=== PATIENT | female | born 1965 | race African-American/Black ===

== ENCOUNTER 2019-08-21 18:15 | Inpatient (IN) | payer MEDICARE, OTHER ==
[~2019-08-21] VITALS: Ht 167.6 cm; Wt 72.1 kg
[2019-08-21] MEDS ORDERED: GLIP5TAB13 PO (18:37)
[2019-08-21] MEDS ORDERED: MECL-102 PO (18:37)
[2019-08-21] MEDS ORDERED: INSU100V7 SQ (18:37)
[2019-08-21] MEDS ORDERED: OMEP20TA20 PO (18:37)
[2019-08-21] MEDS ORDERED: INSU100V11 SQ (18:37)
[2019-08-21] MEDS ORDERED: CARV25TA2 PO (18:37)
[2019-08-21] MEDS ORDERED: NIFE30TA89 PO (18:37)
[2019-08-21] MEDS ORDERED: MIDO5TAB4 PO (18:37)
[2019-08-21] MEDS ORDERED: ACET-868 PO (18:37)
[2019-08-21] MEDS ORDERED: CLOP75TA15 PO (18:37)
[2019-08-21] MEDS ORDERED: ASPI-1169 PO (18:37)
[2019-08-21] MEDS ORDERED: GENT3.5O7 TOP (18:41)
--- NOTE | 2019-08-21 18:54 | NUR ---
PER PATIENT, SOMETIMES SHE MAKES URINE, SOMETIMES SHE DOESN'T INFORMED DR. FRANKLIN. PER , ITS OK NOT TO COLLECT URINE AT THIS TIME.
[2019-08-21] MEDS ORDERED: IV NS 0.9% 1,000 ML BAG IV ONE (19:00)
[2019-08-21] MEDS ORDERED: VANCOMYCIN 1 GM in IV D5W 250 ML IV ONE (19:00)
[2019-08-21] MEDS ORDERED: PIPERACILLIN /TAZOBACTAM 3.375 G in IV D5W 50 ML IV ONE (19:00)
--- NOTE | 2019-08-21 19:01 | NUR ---
PAGED EPIC BRYSON GRAHAM.
--- NOTE | 2019-08-21 19:22 | NUR ---
DR FRANKLIN AT THE BED SIDE
[2019-08-21] MEDS ORDERED: IV NS 0.9% 500 ML BAG IV ONE (19:30)
--- NOTE | 2019-08-21 19:30 | NUR ---
ENDORSED TO ALEXSANDRA WASSERMAN FOR KAVITHA.
[2019-08-21 19:41] LABS: BASOPHILS # (AUTO) 0.1 /CMM (0.0-0.2); BASOPHILS % (AUTO) 0.9 % (0.0-2.0); EOSINOPHILS % (AUTO) 1.7 % (0.0-6.0); HEMATOCRIT 40 % (33-45); HEMOGLOBIN 12.8 g/dL (11.5-14.8); LYMPHOCYTES # (AUTO) 1.5 /CMM (0.8-4.8); LYMPHOCYTES % (AUTO) 11.7 % (20.0-44.0); MEAN CORPUSCULAR HGB CONC 32 g/dl (31.0-36.0); MEAN CORPUSCULAR VOLUME 94 fL (82-100); MONOCYTES # (AUTO) 0.8 /CMM (0.1-1.30); MONOCYTES % (AUTO) 6.6 % (2.0-12.0); NEUTROPHILS # (AUTO) 9.9 /CMM (1.8-8.9); NEUTROPHILS % (AUTO) 79.1 % (43.0-81.0); PLATELET COUNT (AUTO) 551 /CMM (150-450); RED BLOOD CELL COUNT(AUTO) 4.25 MIL/uL (4.0-5.2); WHITE BLOOD COUNT (AUTO) 12.5 K/uL (4.3-11.0)
--- NOTE | 2019-08-21 19:52 | NUR ---
JACEK, HOSPITALIST AT THE BED SIDE
[2019-08-21 20:10] LABS: CALCIUM, SERUM 9.5 mg/dL (8.5-10.1); CARBON DIOXIDE 23 mmol/L (21-32); CHLORIDE 100 mmol/L (98-107); GLUCOSE 223 mg/dL (74-106); POTASSIUM 3.3 mmol/L (3.5-5.1); SODIUM SERUM 137 mmol/L (136-145); UREA NITROGEN, BLOOD 52 mg/dL (7-18)
[2019-08-21 20:11] LABS: ALANINE AMINOTRANSFERASE 16 U/L (12-78); ALKALINE PHOSPHATASE 147 U/L (46-116); ASPARTATE AMINOTRANSFERASE 37 U/L (15-37); BILIRUBIN,DIRECT 0.2 mg/dL (0.0-0.2); BILIRUBIN,TOTAL 0.6 mg/dL (0.2-1.0)
[2019-08-21 20:12] LABS: CREATININE 11.7 mg/dL (0.6-1.3)
--- NOTE | 2019-08-21 20:12 | NUR ---
CRITICAL LAB RECEIVED. MD SNOW
[2019-08-21 20:19] LABS: ALBUMIN 1.8 g/dL (3.4-5.0)
--- NOTE | 2019-08-21 20:56 | NUR ---
REPORT GIVEN TO LISSETTE MASSEY KAVITHA
--- NOTE | 2019-08-21 20:56 | NUR ---
RM CHANGED 102
[2019-08-21 21:00] VITALS: BP 148/65
[2019-08-21] MEDS ORDERED: MIDODRINE HCL (5MG) 5 MG TABLET PO PRN (21:00)
[2019-08-21] MEDS ORDERED: MECLIZINE HCL 25 MG TABLET PO PRN (21:00)
[2019-08-21] MEDS ORDERED: Z GUARD REMEDY 2 OZ OINT TP PRN (21:00)
[2019-08-21] MEDS ORDERED: ONDANSETRON HCL/PF 4 MG/2 ML VIAL IVP PRN (21:00)
[2019-08-21] MEDS ORDERED: MAG HYDROX/AL HYDROX/SIMETH 30 ML UDC PO PRN (21:00)
[2019-08-21] MEDS ORDERED: MAGNESIUM HYDROXIDE 30 ML UDC PO PRN (21:00)
--- NOTE | 2019-08-21 21:26 | NUR ---
PT WAS TRANSFERRED TO 102 IN STABLE CONDITION.
--- NOTE | 2019-08-21 21:35 | NUR ---
MS RN NOTE PATIENT RECEIVED FROM ER IN [facility] WITH 2 CHILDREN AT BEDSIDE. PATIENT A/0 X 2-3. PATIENT C/OP PAIN IN LEFT HAND/ ARM. PATIENT SLIGHTLY AGITATED. PATIENT TRANSFERRED TO BED BODY CHECK AND BED BATH GIVEN. WOUNDS NOTED ON SACRUM AND LEFT HAND/FOOT. PATIENT HAS 20 G IN R HAND PATENT AND INTACT NO S/S OF INFECTION OR INFILTRATION. PATIENT DENIES CHEST PAIN/SOB. POC AND GOALS DISCUSSED WITH PATIENT AND FAMILY AT BEDSIDE. CALL LIGHT INSTRUCTIONS GIVEN. SAFETY PRECAUTIONS IN PLACE. BED IN LOWEST LOCKED POSITION. SIDE RAILS UP X 2. RN WILL CONTINUE TO MONITOR FOR CHANGES.
[2019-08-21 21:39] VITALS: BP 140/80
[2019-08-21] MEDS ORDERED: POTASSIUM CHLORIDE 20 MEQ TAB.PRT.SR PO SCH (22:00)
[2019-08-21] MEDS: HYDROMORPHONE INJ 2 MG/ML DISP.SYRIN IV PRN (22:13)
[2019-08-21] MEDS: BLOOD SUGAR DIAGNOSTIC 1 EACH STRIP VI SCH (22:26)
[2019-08-21] MEDS: CARVEDILOL 12.5 MG TABLET PO SCH (22:26)
[2019-08-21] MEDS: *INSULIN REGULAR(HUMULIN R)HUM 100 UNIT/ML VIAL SQ PRN (22:28)
[2019-08-22 04:00] VITALS: BP 133/28
[2019-08-22] MEDS ORDERED: PIPERACILLIN /TAZOBACTAM 2.25 G VIAL IV ONE (05:20)
[2019-08-22] MEDS: PIPERACILLIN /TAZOBACTAM 2.25 G in IV D5W 50 ML IV SCH ×3 (05:29→21:53)
[2019-08-22] MEDS ORDERED: FEE PK DOSING 1 MIN EA MC ONE (06:50)
--- NOTE | 2019-08-22 07:36 | NUR ---
recieved alert and with daughter and family at bedside
[2019-08-22] MEDS: BLOOD SUGAR DIAGNOSTIC 1 EACH STRIP VI SCH ×4 (07:49→22:03)
[2019-08-22 08:00] VITALS: BP 143/54
[2019-08-22] MEDS: PANTOPRAZOLE 40 MG TABLET.DR PO SCH (08:05)
[2019-08-22 08:18] LABS: ALBUMIN 1.6 g/dL (3.4-5.0); BILIRUBIN,TOTAL 0.5 mg/dL (0.2-1.0); CALCIUM, SERUM 8.9 mg/dL (8.5-10.1); MAGNESIUM 2.3 mg/dL (1.8-2.4); PHOSPHORUS 7.4 mg/dL (2.5-4.9); POTASSIUM 3.6 mmol/L (3.5-5.1); TOTAL PROTEIN, SERUM 6.2 g/dL (6.4-8.2)
[2019-08-22 08:21] LABS: BASOPHILS # (AUTO) 0.1 /CMM (0.0-0.2); BASOPHILS % (AUTO) 0.7 % (0.0-2.0); EOSINOPHILS % (AUTO) 3.1 % (0.0-6.0); HEMATOCRIT 36 % (33-45); HEMOGLOBIN 11.8 g/dL (11.5-14.8); LYMPHOCYTES # (AUTO) 1.4 /CMM (0.8-4.8); LYMPHOCYTES % (AUTO) 16.2 % (20.0-44.0); MEAN CORPUSCULAR HGB CONC 33 g/dl (31.0-36.0); MEAN CORPUSCULAR VOLUME 93 fL (82-100); MONOCYTES # (AUTO) 0.6 /CMM (0.1-1.30); MONOCYTES % (AUTO) 7.3 % (2.0-12.0); NEUTROPHILS # (AUTO) 6.4 /CMM (1.8-8.9); NEUTROPHILS % (AUTO) 72.7 % (43.0-81.0); PLATELET COUNT (AUTO) 475 /CMM (150-450); RED BLOOD CELL COUNT(AUTO) 3.84 MIL/uL (4.0-5.2); WHITE BLOOD COUNT (AUTO) 8.8 K/uL (4.3-11.0)
[2019-08-22 08:23] LABS: THYROID STIMULATING HORMONE 5.565 uIU/mL (0.358-3.74)
[2019-08-22] MEDS: NIFEdipine XL (30MG) 30 MG TAB PO SCH ×2 (08:28→16:47)
[2019-08-22] MEDS: CARVEDILOL 12.5 MG TABLET PO SCH ×2 (08:31→21:00)
[2019-08-22] MEDS: CLOPIDOGREL BISULFATE 75 MG TABLET PO SCH (08:31)
[2019-08-22] MEDS: glipiZIDE 5 MG TABLET PO SCH ×2 (08:31→16:46)
[2019-08-22] MEDS: ASPIRIN 81 MG TAB.CHEW PO SCH (08:32)
--- NOTE | 2019-08-22 08:39 | NUR ---
WOUND CARE CONSULT: PT PRESENTS WITH MULTIPLE WOUNDS PRESENT ON ADMISSION INCLUDING UNSTAGEABLE SACRAL ULCER, LEFT HAND DISCOLORATION WITH DRY NECROTIC WOUND, LEFT ELBOW ESCHAR, LEFT FOOT ESCHARS. UNABLE TO PALPATE RADIAL PULSE ON LEFT WRIST. LEFT UPPER EXTREMITY COOL TO TOUCH. DR CORTEZ NOTIFIED OF NEED FOR DPM AND SURGICAL CONSULTS. DR CORTEZ AND DR AMEZQUITA NOTIFIED OF ABSENT LEFT RADIAL PULSE AND COOL EXTREMITY. RECOMMENDATIONS MADE FOR SKIN PROTECTION. DISCUSSED WITH NURSING STAFF. WILL SEE PRN. HARRELL IN AGREEMENT WITH PLAN OF CARE. [facility] Addendum: 08/22/19 at 0842 by ARKEL WASHINGTON WNDNU Amended: Links added.
[2019-08-22] MEDS: LACTOBACILLUS RHAMNOSUS GG 1 EACH CAP.SPRINK PO SCH ×2 (09:48→17:40)
--- NOTE | 2019-08-22 10:54 | NUR ---
director business development in [facility] seen patient and informed that the patirnt only took a few spoons of food and refused the rest, the wound care nurse seen mo patiemt ,and awaiting orders, ,arletteshelley herron in [facility] started the peritoneal dialysis.warren koNeprologist in [facility] mseen patient isformed an=bout the patient former hemodialysis provider to orders hep panel amnd and ppd. will malik rosenthal Addendum: 08/22/19 at 1101 by PATRICK POTTS RN informmthe attending physician about it,complaimnts of pain the the coccyx area and will inform the physician for orders,
--- NOTE | 2019-08-22 11:01 | NUR ---
peritonial dialysis ongoing
[2019-08-22] MEDS: HYDROMORPHONE INJ 2 MG/ML DISP.SYRIN IV PRN (11:31)
[2019-08-22 12:00] VITALS: BP 142/81
[2019-08-22] MEDS ORDERED: SILVER NITRATE APPLICATOR 1 EA BOX TP ONE (13:00)
[2019-08-22] MEDS ORDERED: LIDOCAINE 1%-EPI 1:100,000 20 ML VIAL TP ONE (13:00)
--- NOTE | 2019-08-22 13:20 | NUR ---
WOUND CARE NURSE IN AND ORDERED I AND D OF THE COCCYX PRESSURE ULCER, CONSENT NEEDSN TO BE SIGNED WILL CALL DAUGHTER ABOUT THE PLAN
[2019-08-22] MEDS: NEPRO VAN 237 ML CAN PO SCH ×2 (13:27→17:43)
--- NOTE | 2019-08-22 13:51 | NUR ---
DAUGHTER WILL COME FOR THE SIGNATURE , Addendum: 08/22/19 at 1352 by PATRICK POTTS RN OF THE ORDERED I AND D OF THE SACRUM AND BILATERAL BUTRTOCKS.
[2019-08-22] MEDS ORDERED: TUBERCULIN,PURIF.PROT.DERIV. 5 TU/0.1 ML VIAL ID ONE (14:00)
--- NOTE | 2019-08-22 14:10 | NUR ---
DOPPLER OF THE LEFT ARM IS DONE AND CURRENTLY ON PROCESS, DAUGHTER IN [place] SIGN THE CONSENT FOR THE ORDERED PROCEDURE
--- NOTE | 2019-08-22 14:15 | NUR ---
DAUGHTER IN [place] SIGNED THE CONSENT FOR DEBRIDEMENT IF THE SACRASL AND MBILATERAL BUTTOKS PRESSURE ULCER
[2019-08-22] MEDS: VANCOMYCIN 500 MG in IV D5W 100 ML IV PRN (14:22)
--- NOTE | 2019-08-22 15:13 | NUR ---
i and d completed and vital signs checked and recorded
[2019-08-22] MEDS: DAKINS QUARTER STRENGTH (0.125%) 480 ML BOTTLE TOP SCH (15:30)
[2019-08-22 15:39] VITALS: BP 104/48
--- NOTE | 2019-08-22 15:48 | NUR ---
vital signs checked aND RECORDED. O2 AT 2L APPLIED THE PATIENT SATURATION 88 ON ROOM AIR S/P ID AND OF THE COCCYX AND BILATERAL BUTTOKS
--- NOTE | 2019-08-22 15:58 | NUR ---
PHYSICIAN TECHNICAL CLERK INFORMED ABOUT THE PATIENT BLOOD PRESSURE 96/58,AFTER THE ID OF THE SACRAL AND BILATERAL BUTTOCKS PRESSURE ULCER, WITH NO FURTHER ORDERS,CONTINUE TO MONITOR, PLACED ON O2 AT 2L NASAL CANNULA
[2019-08-22 16:00] VITALS: BP 96/46
--- NOTE | 2019-08-22 16:46 | NUR ---
glipizide on hold as the patient refused diet and even suuplements. bs 113mg/dl
--- NOTE | 2019-08-22 17:43 | NUR ---
refused dagmar and jamal supplements, medications taken
--- NOTE | 2019-08-22 18:08 | NUR ---
tuberculin test done to the right forearm
--- NOTE | 2019-08-22 19:30 | NUR ---
MS RN NOTE: RECEIVED PT ON BED ALERT AND ORIENTED X1. FAMILY MEMBER AT BEDSIDE. NO ACUTE DISTRESS NOTED. DENIES PAIN AND DISCOMFORT AT THIS TIME. ON ROOM AIR, NO SOB NOTED. IV ON RIGHT HAND #20 INTACT AND PATENT, FLUSHING WELL. KEPT CLEAN, DRY AND COMFORTABLE. CALL LIGHT PLACED WITHIN REACH. SIDE RAILS UP X2. BED ALARM ON. BED LOCKED AND IN LOWEST POSITION. WILL CONTINUE TO MONITOR PT
[2019-08-22 20:00] VITALS: BP 93/39
[2019-08-23] MEDS: ACETAMINOPHEN 325 MG TABLET PO PRN (00:24)
[2019-08-23] MEDS: HYDROMORPHONE INJ 2 MG/ML DISP.SYRIN IV PRN ×3 (02:41→15:25)
[2019-08-23 04:00] VITALS: BP 117/50
[2019-08-23] MEDS: PIPERACILLIN /TAZOBACTAM 2.25 G in IV D5W 50 ML IV SCH ×3 (05:24→21:31)
--- NOTE | 2019-08-23 06:45 | NUR ---
MS RN NOTE: NO CHANGES NOTED THROUGHOUT THE SHIFT. NO APPARENT DISTRESS NOTED. NO COMPLAINTS OF PAIN OR DISCOMFORT AT THIS TIME. FAMILY MEMBER AT BEDSIDE. KEPT CLEAN, DRY AND COMFORTABLE. SAFETY AND FALL PRECAUTIONS OBSERVED AND MAINTAINED. WILL ENDORSE TO DAY SHIFT RN FOR CONTINUITY OF CARE
[2019-08-23 07:02] LABS: CALCIUM, SERUM 8.9 mg/dL (8.5-10.1); MAGNESIUM 2.5 mg/dL (1.8-2.4); POTASSIUM 3.7 mmol/L (3.5-5.1)
[2019-08-23 07:03] LABS: CREATININE 13.9 mg/dL (0.6-1.3)
--- NOTE | 2019-08-23 07:05 | NUR ---
RN NOTE: RECEIVED PT ON BED, SLEEPING , RESPONDS TO VERBAL STIMULI , SUPPORTIVE FAMILY AT THE BEDSIDE, ON RA, RESPIRATION EVEN AND UNLABORED, NO SOB NOTED. IV ON RIGHT HAND #20 INTACT AND PATENT, FLUSHING WELL. KEPT CLEAN, DRY AND COMFORTABLE. CALL LIGHT PLACED WITHIN REACH. SIDE RAILS UP X3. BED ALARM ON. BED LOCKED AND IN LOWEST POSITION. WILL CONTINUE TO MONITOR .
[2019-08-23 07:07] LABS: PHOSPHORUS 8.2 mg/dL (2.5-4.9)
[2019-08-23 07:08] LABS: BASOPHILS # (AUTO) 0.1 /CMM (0.0-0.2); EOSINOPHILS % (AUTO) 2.9 % (0.0-6.0); HEMATOCRIT 34 % (33-45); HEMOGLOBIN 11.2 g/dL (11.5-14.8); LYMPHOCYTES # (AUTO) 1.4 /CMM (0.8-4.8); LYMPHOCYTES % (AUTO) 15.5 % (20.0-44.0); MEAN CORPUSCULAR HGB CONC 33 g/dl (31.0-36.0); MEAN CORPUSCULAR VOLUME 92 fL (82-100); MONOCYTES # (AUTO) 0.7 /CMM (0.1-1.30); MONOCYTES % (AUTO) 7.5 % (2.0-12.0); NEUTROPHILS # (AUTO) 6.5 /CMM (1.8-8.9); NEUTROPHILS % (AUTO) 73.1 % (43.0-81.0); PLATELET COUNT (AUTO) 484 /CMM (150-450); RED BLOOD CELL COUNT(AUTO) 3.67 MIL/uL (4.0-5.2); WHITE BLOOD COUNT (AUTO) 8.8 K/uL (4.3-11.0)
--- NOTE | 2019-08-23 07:25 | NUR ---
RN NOTES BG=40 ,PT IS DRAWZY , OPENS EYES TO VERBAL STIMULI, D50 IV ONE AMP GIVEN STAT, DR WEBSTER NOTIFIED , CONTINUE TO MONITOR .
[2019-08-23] MEDS: DEXTROSE 50%-WATER 50 ML DISP.SYRIN IV PRN (07:28)
[2019-08-23 08:00] VITALS: BP 129/50
[2019-08-23] MEDS: NEPRO VAN 237 ML CAN PO SCH ×3 (08:00→17:00)
--- NOTE | 2019-08-23 08:00 | NUR ---
RN NOTES BG =171, PT IS MORE ALERT, FOLLOWS COMMAND, SUPPORTIVE FAMILY AT THE BEDSIDE, CONTINUE TO MONITOR. DR WEBSTER NOTIFED REGARDING BG AND PHOS=8.2, NO NEW ORDER GIVEN , CONTINUE TO MONITOR .
[2019-08-23] MEDS: ASPIRIN 81 MG TAB.CHEW PO SCH (08:25)
[2019-08-23] MEDS: LACTOBACILLUS RHAMNOSUS GG 1 EACH CAP.SPRINK PO SCH ×2 (08:25→17:00)
[2019-08-23] MEDS: CLOPIDOGREL BISULFATE 75 MG TABLET PO SCH (08:25)
[2019-08-23] MEDS: CARVEDILOL 12.5 MG TABLET PO SCH ×2 (08:26→21:00)
[2019-08-23] MEDS: NIFEdipine XL (30MG) 30 MG TAB PO SCH ×2 (08:26→17:00)
[2019-08-23] MEDS: PANTOPRAZOLE 40 MG TABLET.DR PO SCH (08:28)
[2019-08-23] MEDS: BLOOD SUGAR DIAGNOSTIC 1 EACH STRIP VI SCH ×4 (08:28→21:32)
[2019-08-23] MEDS: glipiZIDE 5 MG TABLET PO SCH ×2 (09:00→17:00)
[2019-08-23] MEDS: DAKINS QUARTER STRENGTH (0.125%) 480 ML BOTTLE TOP SCH (09:29)
--- NOTE | 2019-08-23 12:00 | NUR ---
RN NOTES PT IS ALERT AND ORIENTEDx1 , WITH CONFUSION AND HALLUCINATING EPISODES AND NOT RESPONSE TO VERBAL STIMULI AT TIMES BUT RESPONSE TO VERBAL STIMULI SOMETIMES.
[2019-08-23] MEDS: SEVELAMER CARBONATE 0.8 GM POWD.PACK PO SCH ×2 (12:44→18:00)
[2019-08-23] MEDS: INSULIN REGULAR, HUMAN 100 UNIT/ML 3 ML VIAL SQ PRN ×2 (12:52→18:02)
[2019-08-23] MEDS: HYDROGEL DRESSING 90 GM TUBE TP SCH (12:54)
--- NOTE | 2019-08-23 14:15 | NUR ---
RN NOTES PT IS HARD STICK , UNABLE TO START IV G 18 FOR CTA, ORDER RECEIVED FOR MIDLINE.
--- NOTE | 2019-08-23 15:25 | NUR ---
RN NOTES PT SCRAMMING AND CRYING , C/O PAIN ON HER SACRUM ,0.5 MG DILAUDID IV GIVE PER MD ORDER . CONTINUE TO MONITOR .
--- NOTE | 2019-08-23 15:33 | NUR ---
RN NOTES PT IS DROWZY AND DOES NOTE FOLLOW COMMANDS, UNABLE TO SENT FOR CTA. DR YOUNG NOTIFIED. CTA CANCELED FOR NOW PER DR YOUNG.
[2019-08-23 16:00] VITALS: BP 106/71
--- NOTE | 2019-08-23 18:00 | NUR ---
RN NOTES VSS STABLE, PT IS DRAWZY AND DOES NOT FOLLOW COMMAND AT THIS TIME BUT ABLE TO COMMUNICATE, STATED WANTS TO GO HOME , R UPPER ARM MIDLINE SITE CLEAN, DRY AND INTACT, SR UP X3, CALL LIGHT WITHIN EASY REACH, WILL ENDOSE TO LIVESTOCK AUCTIONEER NURSE FOR CONTINUITY OF CARE.
--- NOTE | 2019-08-23 19:25 | NUR ---
MS/RN NOTES PATIENT IN BED, DROWSY, RESPONSIVE TO TACTILE AND VERBAL STIMULI, ALERT AND ORIENTED X1. IN NO ACUTE DISTRESS, RESPIRATION EVEN AND UNLABORED. NO SOB NOTED, NO S/S OF PAIN AT THIS TIME. RIGHT UPPER ARM MIDLINE WITH NO S/S OF INFECTION/ INFILTRATION. FLUSHED WITH NS. PATIENT ON O2 2LPM VIA NC, O2 SAT 98%. AT THIS TIME. SAFETY MAINTAINED, BED AT THE LOWEST LOCKED POSITION. KEPT CLEAN AND DRY CALL LIGHT WITHIN REACH. FAMILY AT BED SIDE. WILL CONTINUE TO MONITOR PER PLAN OF CARE.
[2019-08-23 20:00] VITALS: BP 111/48
--- NOTE | 2019-08-23 21:08 | NUR ---
COREG NOT ADMINISTER, PATIENT BLOOD PRESSURE 102/44, HR 68
--- NOTE | 2019-08-23 21:33 | NUR ---
PATIENT BLOOD SUGAR 161 AT THIS TIME, HOLDING INSULIN SLIDING SCALE ORDERED AT THIS TIME, PATIENT NOT EAT EATING MUCH. CALLED SERVICING MANAGER ABHAY, MADE HIM AWARE, PER ABHAY, CONTINUE TO MONITOR
[2019-08-24 04:00] VITALS: BP 106/63
[2019-08-24] MEDS: PIPERACILLIN /TAZOBACTAM 2.25 G in IV D5W 50 ML IV SCH ×3 (06:08→20:35)
[2019-08-24 07:11] LABS: MAGNESIUM 2.7 mg/dL (1.8-2.4); POTASSIUM 4.1 mmol/L (3.5-5.1)
--- NOTE | 2019-08-24 07:11 | NUR ---
MS/RN NOTES PATIENT REMAINED IN BED, IN NO ACUTE DISTRESS, BREATHING EVEN AND UNLABORED, NO SOB NOTED, NO S/S OF PAIN AT THIS TIME. ALL DUE MEDS GIVEN ORDERED, TREATMENT RENDERED, TOLERATED WELL. KEPT CLEAN AND DRY, ALL NEEDS ATTENDANT, SAFETY MAINTAINED, CALL LIGHT WITHIN REACH. ENDORSE TO AM SHIFT NURSE FOR KAVITHA.
[2019-08-24 07:16] LABS: CREATININE 14.3 mg/dL (0.6-1.3); PHOSPHORUS 8.6 mg/dL (2.5-4.9)
--- NOTE | 2019-08-24 07:25 | NUR ---
MS/RN OPENING NOTES RECEIVED PATIENT IN BED AWAKE, ALERT AND ABLE TO MAKE NEEDS KNOWN. NO PAIN OR ACUTE DISTRESS AT THIS TIME. RESPIRATION EVEN AND UNLABORED. SKIN IS DRY WARM TO TOUCH. RIGHT UPPER ARM MIDLINE INTACT WITH NO S/S OF INFECTION/ INFILTRATION. FLUSHING WELL. ALL NEEDS ANTICIPATED. CALL LIGHT WITHIN REACHED. BED LOCKED AND IN LOWEST POSITION. SAFETY MAINTAINED. PLAN OF CARE DISCUSSED. WILL CONTINUE TO MONITOR CLOSELY.
[2019-08-24] MEDS: PANTOPRAZOLE 40 MG TABLET.DR PO SCH (07:50)
[2019-08-24] MEDS: BLOOD SUGAR DIAGNOSTIC 1 EACH STRIP VI SCH ×4 (07:50→23:19)
[2019-08-24 08:00] VITALS: BP_SYST 108; BP_SYST 113; BP_DIAS 44; BP_DIAS 63
[2019-08-24] MEDS: NEPRO VAN 237 ML CAN PO SCH ×3 (08:05→17:38)
[2019-08-24] MEDS: LACTOBACILLUS RHAMNOSUS GG 1 EACH CAP.SPRINK PO SCH ×2 (08:38→18:05)
[2019-08-24] MEDS: glipiZIDE 5 MG TABLET PO SCH ×2 (08:38→18:06)
[2019-08-24] MEDS: ASPIRIN 81 MG TAB.CHEW PO SCH (08:38)
[2019-08-24] MEDS: CLOPIDOGREL BISULFATE 75 MG TABLET PO SCH (08:39)
[2019-08-24] MEDS: SEVELAMER CARBONATE 0.8 GM POWD.PACK PO SCH ×3 (08:39→18:06)
[2019-08-24] MEDS: NIFEdipine XL (30MG) 30 MG TAB PO SCH ×2 (08:39→18:05)
[2019-08-24] MEDS: CARVEDILOL 12.5 MG TABLET PO SCH ×2 (08:39→20:00)
[2019-08-24] MEDS: HYDROGEL DRESSING 90 GM TUBE TP SCH (08:41)
--- NOTE | 2019-08-24 08:42 | NUR ---
MS/RN NOTES MEDICATION COREG AND NIFEDIPINE WAS NOT GIVEN DUE TO LOW BP OF 108/63. PATIENT CONTINUES TO REMAIN IN STABLE CONDITION. WILL CONTINUE PLAN OF CARE.
--- NOTE | 2019-08-24 11:36 | NUR ---
MS/RN NOTES PATIENT REFUSED BS CHECKING AT 1200. EXPLAINED RISKS AND BENEFITS X3. PATIENT STILL REFUSED X3. PATIENT CONTINUES TO REMAIN IN STABLE CONDITION. WILL CONTINUE TO MONITOR CLOSELY.
--- NOTE | 2019-08-24 15:43 | NUR ---
BROUGHT THE PT. TO CT FOR CT ANGIO HEART AND SHE DOESN'T WANT TO CONTINUE WITH THE PROCEDURE. LISY DAVALOS IS AWARE AND TOLD HIM TO INFORM DR. YOUNG REGARDING THE PT.
[2019-08-24] MEDS: HYDROMORPHONE INJ 2 MG/ML DISP.SYRIN IV PRN (15:57)
[2019-08-24 16:00] VITALS: BP 115/65
[2019-08-24] MEDS: *INSULIN REGULAR(HUMULIN R)HUM 100 UNIT/ML VIAL SQ PRN (18:02)
--- NOTE | 2019-08-24 18:46 | NUR ---
MS/RN CLOSING NOTES PATIENT CONTINUES TO REMAIN IN STABLE CONDITION THROUGHOUT THE SHIFT. PROVIDED COMFORT AND SAFETY. RIGHT UPPER ARM MIDLINE INTACT WITH NO S/S OF INFECTION/ INFILTRATION. FLUSHING WELL. PATIENT ABLE TO TOLERATE MEALS AND MEDS WELL. ALL NEEDS ANTICIPATED. CALL LIGHT WITHIN REACHED. BED LOCKED AND IN LOWEST POSITION. SAFETY MAINTAINED. PLAN OF CARE DISCUSSED. WILL CONTINUE TO MONITOR CLOSELY. ENDORSED TO PM NURSE FOR KAVITHA.
--- NOTE | 2019-08-24 19:30 | NUR ---
MS RN OPENING NOTE RECEIVED PATIENT ASLEEP. PATIENT IN BED WITH NO DISTRESS. PATIENT ON ROOM AIR WITH NO SIGNS OF ANY SOB. PATIENT IS NON AMBULATORY WITH BED ALARM ON. IV ACCESS ON RT HAND #20G S/L AND A SIRIA MIDLINE. ALL SAFETY PRECAUTIONS APPLIED, CALL LIGHT WITHIN REACH, BED ALARM ON, AND BED LOCKED IN LOW POSITION. WILL CONTINUE TO MONITOR.
[2019-08-24 20:00] VITALS: BP 116/63
--- NOTE | 2019-08-24 21:30 | NUR ---
MS RN NOTE PATIENT REFUSED TO TAKE CARVEDILOL MEDICATION ORDERED @ 2100. TRIED TO EXPLAIN THE BENEFITS OF TAKING THE MEDICATION BUT PATIENT REFUSED TO OPEN HER MOUTH. ATTEMPTED TO UNIVERSITY RELATIONS VICE PRESIDENT HER THE MEDICATION AT 2200 BUT PATIENT STILL REFUSED TO OPEN MOUTH.
[2019-08-25 04:00] VITALS: BP 132/93
[2019-08-25] MEDS: PIPERACILLIN /TAZOBACTAM 2.25 G in IV D5W 50 ML IV SCH ×3 (04:19→21:47)
--- NOTE | 2019-08-25 06:58 | NUR ---
MS RN CLOSING NOTE PATIENT IN BED WITH NO SIGNS OF ANY DISTRESS. ALL SAFETY PRECAUTIONS APPLIED ENDORSED PATIENT TO MORNING SHIFT NURSE FOR KAVITHA.
--- NOTE | 2019-08-25 07:19 | NUR ---
MS/RN OPENING NOTES RECEIVED PATIENT IN BED SLEEPING COMFORTABLY. EASILY AROUSABLE. NO PAIN OR ACUTE DISTRESS AT THIS TIME. RESPIRATION EVEN AND UNLABORED. SKIN IS DRY WARM TO TOUCH. PATIENT ABLE TO MAKE NEEDS KNOWN. RIGHT UPPER ARM MIDLINE INTACT WITH NO S/S OF INFECTION/ INFILTRATION. FLUSHING WELL. ALL NEEDS ANTICIPATED. CALL LIGHT WITHIN REACHED. BED LOCKED AND IN LOWEST POSITION. SAFETY MAINTAINED. PLAN OF CARE DISCUSSED. WILL CONTINUE TO MONITOR CLOSELY.
[2019-08-25 07:20] LABS: BASOPHILS # (AUTO) 0.1 /CMM (0.0-0.2); BASOPHILS % (AUTO) 0.5 % (0.0-2.0); EOSINOPHILS % (AUTO) 2.4 % (0.0-6.0); HEMATOCRIT 34 % (33-45); HEMOGLOBIN 11.5 g/dL (11.5-14.8); LYMPHOCYTES # (AUTO) 1.3 /CMM (0.8-4.8); LYMPHOCYTES % (AUTO) 12.3 % (20.0-44.0); MEAN CORPUSCULAR HGB CONC 34 g/dl (31.0-36.0); MEAN CORPUSCULAR VOLUME 92 fL (82-100); MONOCYTES # (AUTO) 0.7 /CMM (0.1-1.30); MONOCYTES % (AUTO) 6.1 % (2.0-12.0); NEUTROPHILS # (AUTO) 8.6 /CMM (1.8-8.9); NEUTROPHILS % (AUTO) 78.7 % (43.0-81.0); PLATELET COUNT (AUTO) 460 /CMM (150-450); RED BLOOD CELL COUNT(AUTO) 3.72 MIL/uL (4.0-5.2)
[2019-08-25 07:36] LABS: CALCIUM, SERUM 9.2 mg/dL (8.5-10.1); MAGNESIUM 2.5 mg/dL (1.8-2.4)
[2019-08-25 07:42] LABS: CREATININE 14.6 mg/dL (0.6-1.3)
[2019-08-25 07:43] LABS: PHOSPHORUS 8.3 mg/dL (2.5-4.9)
[2019-08-25 08:00] VITALS: BP 118/60
[2019-08-25] MEDS: PANTOPRAZOLE 40 MG TABLET.DR PO SCH (08:20)
[2019-08-25] MEDS: BLOOD SUGAR DIAGNOSTIC 1 EACH STRIP VI SCH ×5 (08:23→23:00)
[2019-08-25] MEDS: NEPRO VAN 237 ML CAN PO SCH ×3 (08:23→17:36)
[2019-08-25] MEDS: SEVELAMER CARBONATE 0.8 GM POWD.PACK PO SCH ×3 (08:25→17:35)
[2019-08-25] MEDS: CLOPIDOGREL BISULFATE 75 MG TABLET PO SCH (08:26)
[2019-08-25] MEDS: ASPIRIN 81 MG TAB.CHEW PO SCH (08:26)
[2019-08-25] MEDS: CARVEDILOL 12.5 MG TABLET PO SCH ×2 (08:26→21:50)
[2019-08-25] MEDS: glipiZIDE 5 MG TABLET PO SCH ×2 (08:26→17:35)
[2019-08-25] MEDS: LACTOBACILLUS RHAMNOSUS GG 1 EACH CAP.SPRINK PO SCH ×2 (08:26→17:35)
[2019-08-25] MEDS: NIFEdipine XL (30MG) 30 MG TAB PO SCH ×2 (08:26→17:35)
[2019-08-25] MEDS: HYDROGEL DRESSING 90 GM TUBE TP SCH (08:27)
[2019-08-25] MEDS: *INSULIN REGULAR(HUMULIN R)HUM 100 UNIT/ML VIAL SQ PRN (12:31)
[2019-08-25] MEDS: HYDROMORPHONE INJ 2 MG/ML DISP.SYRIN IV PRN ×2 (13:27→21:54)
--- NOTE | 2019-08-25 15:02 | NUR ---
MS/RN NOTES INFORMED DR. YOUNG REGARDING SISTER OF PATIENT WANTING DOCTOR TO CALL HER. PHONE NUMBER AND NAME WAS GIVEN TO DR. YOUNG. PER DOCTOR HE SAID OK.
[2019-08-25 16:00] VITALS: BP 128/72
[2019-08-25] MEDS: INSULIN REGULAR, HUMAN 100 UNIT/ML 3 ML VIAL SQ PRN (17:17)
--- NOTE | 2019-08-25 18:46 | NUR ---
MS/RN CLOSING NOTES PATIENT CONTINUES TO REMAIN IN STABLE CONDITION THROUGHOUT THE SHIFT. PROVIDED COMFORT AND SAFETY. WHILE PREPARING THE PATIENT FOR DISCHARGE, FAMILY MEMBERS INSISTED FOR HER TO GO TO A SNF. SPOKE TO CM PER HER PATIENT WOULD STAY FOR THE NIGHT HERE IN THE UNIT UNTIL THEY FIND PLACEMENT FOR HER TOMORROW. FAMILY MEMBERS MADE AWARE. IV ACCESS INTACT AND PATENT. FLUSHING WELL. ALL NEEDS ANTICIPATED. CALL LIGHT WITHIN REACHED. BED LOCKED AND IN LOWEST POSITION. ENDORSED TO PM NURSE FOR KAVITHA.
[2019-08-25 20:00] VITALS: BP 129/47
[2019-08-25] MEDS: DEXTROSE 50%-WATER 50 ML DISP.SYRIN IV PRN (22:30)
[2019-08-25] MEDS: ZOLPIDEM TARTRATE 5 MG TABLET PO PRN (23:11)
[2019-08-26] MEDS: *INSULIN REGULAR(HUMULIN R)HUM 100 UNIT/ML VIAL SQ PRN ×2 (00:46→17:37)
[2019-08-26 04:00] VITALS: BP 126/60
[2019-08-26] MEDS: PIPERACILLIN /TAZOBACTAM 2.25 G in IV D5W 50 ML IV SCH ×3 (05:56→20:38)
--- NOTE | 2019-08-26 07:11 | NUR ---
RN NOTES PATIENT IN BED WITH NO RESPIRATORY DISTRESS NOTED. BREATHING EVEN AND UNLABORED. NOTED MOANING, ADMINISTERED DILAUDID FOR PAIN WITH RELIEF. PATIENT'S BLOOD SUGAR WAS LOW AT 2200, PATIENT WAS ASYMPTOMATIC. DEXTROSE ADMINISTERED, RECHECKED AFTER 1 HOUR, WENT UP 197. 0 INSULIN ADMINISTERED BECAUSE OF EPISODE OF HYPOCLYCEMIA. KEPT CLEAN AND DRY. ENDORSED TO NEXT SHIFT FOR CONTINUITY OF CARE.
[2019-08-26 07:18] LABS: CALCIUM, SERUM 9.6 mg/dL (8.5-10.1); POTASSIUM 3.7 mmol/L (3.5-5.1)
[2019-08-26 07:19] LABS: CREATININE 15.2 mg/dL (0.6-1.3)
--- NOTE | 2019-08-26 07:53 | NUR ---
MS RN NOTES PATIENT IN BED WITH NO RESPIRATORY DISTRESS NOTED. BREATHING EVEN AND UNLABORED.KEPT CLEAN AND DRY.ON 2L NS ,NO SOB NOTED AT THIS TIME ALERT WITH CONFUSION , TREASURY MANAGEMENT SALES CONSULTANT AT BEDSIDE FEEDING PATIENT, RT UA MID LINE IN PLACE AND RT HAND HL IN PLACE , BED IN LOWEST AND LOCKED POSITION , CALL LIGHT WITH REACH , PLAN OF CARE DISCUSSED WITH PATIENT
[2019-08-26 08:00] VITALS: BP 131/59
[2019-08-26] MEDS: SEVELAMER CARBONATE 0.8 GM POWD.PACK PO SCH ×3 (08:35→17:32)
[2019-08-26] MEDS: LACTOBACILLUS RHAMNOSUS GG 1 EACH CAP.SPRINK PO SCH ×2 (08:35→16:44)
[2019-08-26] MEDS: PANTOPRAZOLE 40 MG TABLET.DR PO SCH (08:35)
[2019-08-26] MEDS: CLOPIDOGREL BISULFATE 75 MG TABLET PO SCH (08:35)
[2019-08-26] MEDS: CARVEDILOL 12.5 MG TABLET PO SCH ×2 (08:36→20:44)
[2019-08-26] MEDS: ASPIRIN 81 MG TAB.CHEW PO SCH (08:36)
[2019-08-26] MEDS: HYDROGEL DRESSING 90 GM TUBE TP SCH (08:37)
[2019-08-26] MEDS: NIFEdipine XL (30MG) 30 MG TAB PO SCH ×2 (08:37→16:44)
[2019-08-26] MEDS: glipiZIDE 5 MG TABLET PO SCH ×2 (08:37→16:44)
[2019-08-26] MEDS: NEPRO VAN 237 ML CAN PO SCH ×3 (08:38→16:44)
--- NOTE | 2019-08-26 10:48 | NUR ---
MS WASSERMAN NOTE ON PERITONEAL DIALYSIS , ORDERED, KEEP CLEAN DRY , TURN REPOSITION Q HOUR, SON AT BEDSIDE Addendum: 08/26/19 at 1450 by ROLLY LINDSEY RN peritoneal dialysis completed ,not in distress
[2019-08-26] MEDS: HYDROMORPHONE INJ 2 MG/ML DISP.SYRIN IV PRN (11:00)
[2019-08-26] MEDS: VANCOMYCIN 500 MG in IV D5W 100 ML IV PRN (11:40)
[2019-08-26] MEDS: BLOOD SUGAR DIAGNOSTIC 1 EACH STRIP VI SCH ×3 (11:50→21:51)
[2019-08-26] MEDS: INSULIN REGULAR, HUMAN 100 UNIT/ML 3 ML VIAL SQ PRN (11:52)
--- NOTE | 2019-08-26 14:47 | NUR ---
ms durbin note all needs attended turn repositionnq2 hour ,call light within reach Addendum: 08/26/19 at 1838 by ROLLY LINDSEY RN 1500 TYLENOL,FOR GENERAL PAIN GIVEN
[2019-08-26] MEDS: ACETAMINOPHEN 325 MG TABLET PO PRN (14:59)
[2019-08-26 16:00] VITALS: BP 131/70
--- NOTE | 2019-08-26 18:38 | NUR ---
MS RN NOTE SCAR WASSERMAN ID AT BEDSIDE SEEN PATIENT, WILL CONT TO MONITOR CLOSELY
--- NOTE | 2019-08-26 19:30 | NUR ---
MS RN OPENING NOTE RECEIVED PATIENT IN BED. A/O X2. ROOM AIR SAT 92% PLACED ON 2L/MIN O2 SAT 95%. RESPIRATIONS ARE EVEN AND UNLABORED. NO S/S SOB. DENIES PAIN AT THIS TIME. IN NO APPARENT DISTRESS. IV ACCESS IN BLAYNE MIDLINE PATENT AND SALINE LOCKED, R HAND PATENT AND SALINE LOCKED. BED IS LOW AN LOCKED, HOB ELEVATED 30 DEGREES, SIDE RAILS UP X3, BED ALARM ON. CALL LIGHT WITHIN REACH, FAMILY AT THE BEDSIDE. WILL CONTINUE TO MONITOR.
[2019-08-26] MEDS: NYSTATIN (PYXIS) 500,000 UNIT/5 ML ORAL.SUSP PO SCH (19:50)
[2019-08-26 20:00] VITALS: BP 86/50
[2019-08-26 20:40] VITALS: BP 102/48
[2019-08-26] MEDS: HEPARIN SODIUM, PORCINE 5000 UNITS/1 ML VIAL SQ SCH (20:43)
[2019-08-26 21:40] VITALS: BP_SYST 108; BP_SYST 128; BP_DIAS 50; BP_DIAS 58
--- NOTE | 2019-08-26 22:05 | NUR ---
MS RN NOTE ACCU CHECK READ BS 133. PATIENT REFUSED INSULIN. WILL CONTINUE TO MONITOR.
[2019-08-27] MEDS: ZOLPIDEM TARTRATE 5 MG TABLET PO PRN ×2 (01:22→23:01)
--- NOTE | 2019-08-27 01:25 | NUR ---
MS RN NOTE ADMINISTERED PRN AMBIEN 5MG PER PATIENT REQUEST FOR SLEEP. WILL CONTINUE TO MONITOR.
[2019-08-27 04:00] VITALS: BP 109/77
[2019-08-27] MEDS: PIPERACILLIN /TAZOBACTAM 2.25 G in IV D5W 50 ML IV SCH ×3 (04:07→21:43)
[2019-08-27 06:26] LABS: CALCIUM, SERUM 9.2 mg/dL (8.5-10.1); POTASSIUM 3.5 mmol/L (3.5-5.1)
[2019-08-27 06:27] LABS: CREATININE 15.3 mg/dL (0.6-1.3)
--- NOTE | 2019-08-27 07:00 | NUR ---
MS RN CLOSING NOTE PATIENT IN BED. A/O X2. ON OXYGEN 2L/MIN O2 SAT 95%. RESPIRATIONS ARE EVEN AND UNLABORED. NO SOB NOTED. NO C/O PAIN THROUGHOUT SHIFT. DISTRESS NOTED. IV ACCESS MAINTAINED IN BLAYNE MIDLINE PATENT AND SALINE LOCKED, R HAND PATENT AND SALINE LOCKED. BED IS LOW AN DLOCKED, HOB ELEVATED 30 DEGREES, SIDE RAILS UP X3, BED ALARM ON. CALL LIGHT WITHIN REACH, FAMILY AT THE BEDSIDE. WILL CONTINUE TO MONITOR.
--- NOTE | 2019-08-27 07:05 | NUR ---
MS RN OPENING NOTE: RECEIVED PATIENT IN BED, ASLEEP AND EASY TO AROUSE. PREFERS TO REST AT THE MOMENT, ON ROOM AIR, TOLERATING WELL. NO SOB, NOT IN ACUTE DISTRESS. WITH SIRIA MIDLINE AND R HAND IV SITE, SITES PATENT, CLEAN AND DRY. PERITONEAL DIALYSIS SITE DRESSING CLEAN, DRY AND INTACT. BED IN LOCKED, LOW AND SEMI-ANGELES'S POSITION. SIDE RAILS UP, CALL LIGHT IN REACH. WILL CONTINUE TO MONITOR.
[2019-08-27] MEDS: BLOOD SUGAR DIAGNOSTIC 1 EACH STRIP VI SCH ×4 (07:30→21:46)
[2019-08-27] MEDS: PANTOPRAZOLE 40 MG TABLET.DR PO SCH (07:30)
[2019-08-27 08:00] VITALS: BP 152/63
[2019-08-27] MEDS: SEVELAMER CARBONATE 0.8 GM POWD.PACK PO SCH ×3 (08:00→17:48)
[2019-08-27] MEDS: NEPRO VAN 237 ML CAN PO SCH ×3 (08:00→17:00)
--- NOTE | 2019-08-27 08:00 | NUR ---
MS RN NOTE: PATIENT IS ASLEEP, ABLE TO AROUSE. REFUSED BLOOD SUGAR CHECK SHE IS STILL SLEEPY AND PREFERS TO REST AT THE MOMENT. REFUSED BREAKFAST AT THE MOMENT.
[2019-08-27] MEDS: glipiZIDE 5 MG TABLET PO SCH ×2 (09:00→17:48)
[2019-08-27] MEDS: HEPARIN SODIUM, PORCINE 5000 UNITS/1 ML VIAL SQ SCH ×2 (09:00→21:44)
[2019-08-27] MEDS: NIFEdipine XL (30MG) 30 MG TAB PO SCH ×2 (09:00→17:49)
[2019-08-27] MEDS: NYSTATIN (PYXIS) 500,000 UNIT/5 ML ORAL.SUSP PO SCH ×3 (09:00→17:51)
[2019-08-27] MEDS: ASPIRIN 81 MG TAB.CHEW PO SCH (09:00)
[2019-08-27] MEDS: LACTOBACILLUS RHAMNOSUS GG 1 EACH CAP.SPRINK PO SCH ×2 (09:00→17:48)
[2019-08-27] MEDS: CLOPIDOGREL BISULFATE 75 MG TABLET PO SCH (09:00)
[2019-08-27] MEDS: HYDROGEL DRESSING 90 GM TUBE TP SCH (09:00)
[2019-08-27] MEDS: CARVEDILOL 12.5 MG TABLET PO SCH ×2 (09:00→21:46)
--- NOTE | 2019-08-27 09:00 | NUR ---
MS RN NOTE: OFFERED MEDICATION TO PATIENT, REFUSED AT THE MOMENT. STATED SHE WILL TAKE IT LATER.
[2019-08-27] MEDS ORDERED: CT SWABBABLE VALVE TRANS SET 1 EA INFUS.SET MC ONE (11:59)
[2019-08-27] MEDS ORDERED: IOHEXOL-350 100 ML VIAL IV ONE (12:00)
[2019-08-27] MEDS ORDERED: IV NS 0.9% 250 ML IV ONE (12:00)
--- NOTE | 2019-08-27 12:00 | NUR ---
MS RN NOTE: PATIENT IS BEING PICKED UP BY RADIOLOGY STAFF FOR CTCA PROCEDURE, NO REFUSAL NOTED FROM PATIENT.
--- NOTE | 2019-08-27 12:49 | NUR ---
ICU/RN: CTA CTA COMPLETED. PT BP LABILE, CALLED AND INFORMED . PER WE ARE TO COMPLETE SCAN WITH NO MEDICATIONS DESPITE THE HR IN THE 80S. SCAN WAS DONE INSTRUCTED. PT HAS DIFFICULTY STAYING STILL AND FOLLOWING INSTRUCTIONS. END VITALS: 125/69, HR 75, RR 20, O2 99%.
--- NOTE | 2019-08-27 13:04 | NUR ---
MS RN NOTE: PATIENT IS BACK FROM CTCA PROCEDURE IN STABLE CONDITION. STILL NOTED TO BE LETHARGIC AND PREFERS TO SLEEP.
[2019-08-27 16:00] VITALS: BP 149/63
--- NOTE | 2019-08-27 18:43 | NUR ---
MS RN CLOSING NOTE: PATIENT IN BED. AWAKE, ALERT AND ORIENTED X2. STILL SLEEPY. IN STABLE CONDITION. WAS ABLE TO TAKE PO MEDICATIONS, CRUSHED AND MIXED IN PUDDING. CTCA PROCEDURE DONE EARLIER TODAY AND PATIENT WANTS TO KNOW RESULT SO THAT SHE CAN TALK TO THE DOCTOR AND GO HOME. WILL RELAY INFORMATION TO ONCOMING SHIFT. NO SOB, NO DISTRESS. IV SITES PATENT. ON CONT. O2 @ 2LPM, TOLERATING WELL. NO PAIN REPORTED AT THIS TIME. BED IN LOCKED, LOW AND SEMI-ANGELES'S POSITION. CALL LIGHT IN REACH. WILL ENDORSE TO ONCOMING SHIFT FOR CONTINUITY OF CARE.
[2019-08-27 20:00] VITALS: BP 92/51
[2019-08-27] MEDS: *INSULIN REGULAR(HUMULIN R)HUM 100 UNIT/ML VIAL SQ PRN (22:05)
[2019-08-28 04:00] VITALS: BP 125/53
[2019-08-28] MEDS: PIPERACILLIN /TAZOBACTAM 2.25 G in IV D5W 50 ML IV SCH ×3 (05:30→20:33)
[2019-08-28 06:35] LABS: BASOPHILS # (AUTO) 0.1 /CMM (0.0-0.2); BASOPHILS % (AUTO) 0.6 % (0.0-2.0); EOSINOPHILS % (AUTO) 2.4 % (0.0-6.0); HEMATOCRIT 35 % (33-45); HEMOGLOBIN 11.5 g/dL (11.5-14.8); LYMPHOCYTES # (AUTO) 1.4 /CMM (0.8-4.8); LYMPHOCYTES % (AUTO) 9.7 % (20.0-44.0); MEAN CORPUSCULAR HGB CONC 33 g/dl (31.0-36.0); MEAN CORPUSCULAR VOLUME 91 fL (82-100); MONOCYTES # (AUTO) 0.9 /CMM (0.1-1.30); MONOCYTES % (AUTO) 6.1 % (2.0-12.0); NEUTROPHILS # (AUTO) 11.9 /CMM (1.8-8.9); NEUTROPHILS % (AUTO) 81.2 % (43.0-81.0); PLATELET COUNT (AUTO) 479 /CMM (150-450); RED BLOOD CELL COUNT(AUTO) 3.79 MIL/uL (4.0-5.2); WHITE BLOOD COUNT (AUTO) 14.6 K/uL (4.3-11.0)
[2019-08-28 07:11] LABS: POTASSIUM 3.3 mmol/L (3.5-5.1)
[2019-08-28 07:12] LABS: CREATININE 15.3 mg/dL (0.6-1.3)
--- NOTE | 2019-08-28 07:20 | NUR ---
MS/RN OPENING NOTES RECEIVED PATIENT IN BED SLEEPING COMFORTABLY. EASILY AROUSABLE. NO PAIN OR ACUTE DISTRESS AT THIS TIME. RESPIRATION EVEN AND UNLABORED. SKIN IS DRY WARM TO TOUCH. PATIENT NOTED WITH SIRIA MIDLINE AND R HAND IV SITE. INTACT AND PATENT. FLUSHING WELL. PERITONEAL DIALYSIS SITE DRESSING CLEAN, DRY AND INTACT WELL. ALL NEEDS ANTICIPATED. CALL LIGHT WITHIN REACHED. BED LOCKED AND IN LOWEST POSITION. SAFETY MAINTAINED. PLAN OF CARE DISCUSSED. WILL CONTINUE TO MONITOR CLOSELY.
[2019-08-28] MEDS: DEXTROSE 50%-WATER 50 ML DISP.SYRIN IV PRN (07:45)
[2019-08-28 08:00] VITALS: BP 108/68
[2019-08-28] MEDS: BLOOD SUGAR DIAGNOSTIC 1 EACH STRIP VI SCH ×4 (08:03→22:19)
[2019-08-28] MEDS: PANTOPRAZOLE 40 MG TABLET.DR PO SCH (08:03)
[2019-08-28] MEDS: NEPRO VAN 237 ML CAN PO SCH ×3 (08:04→16:36)
[2019-08-28] MEDS: SEVELAMER CARBONATE 0.8 GM POWD.PACK PO SCH ×3 (08:04→17:01)
[2019-08-28] MEDS: NYSTATIN (PYXIS) 500,000 UNIT/5 ML ORAL.SUSP PO SCH ×3 (08:53→16:35)
[2019-08-28] MEDS: ASPIRIN 81 MG TAB.CHEW PO SCH (08:53)
[2019-08-28] MEDS: glipiZIDE 5 MG TABLET PO SCH ×2 (08:53→16:35)
[2019-08-28] MEDS: LACTOBACILLUS RHAMNOSUS GG 1 EACH CAP.SPRINK PO SCH ×2 (08:53→16:36)
[2019-08-28] MEDS: CLOPIDOGREL BISULFATE 75 MG TABLET PO SCH (08:53)
[2019-08-28] MEDS: HYDROGEL DRESSING 90 GM TUBE TP SCH (08:54)
[2019-08-28] MEDS: HEPARIN SODIUM, PORCINE 5000 UNITS/1 ML VIAL SQ SCH ×2 (08:57→20:34)
[2019-08-28] MEDS: HYDROMORPHONE INJ 2 MG/ML DISP.SYRIN IV PRN ×2 (08:58→20:44)
[2019-08-28] MEDS: CARVEDILOL 12.5 MG TABLET PO SCH ×2 (09:00→20:35)
[2019-08-28] MEDS: NIFEdipine XL (30MG) 30 MG TAB PO SCH ×2 (09:00→16:36)
--- NOTE | 2019-08-28 09:20 | NUR ---
MS/RN NOTES MEDICATION COREG AND PROCARDIA WAS NOT GIVEN DUE TO LOW B/P. PATIENT CONTINUES TO REMAIN IN STABLE CONDITION. WILL CONTINUE TO MONITOR CLOSELY.
[2019-08-28] MEDS: INSULIN REGULAR, HUMAN 100 UNIT/ML 3 ML VIAL SQ PRN (12:40)
[2019-08-28] MEDS ORDERED: HYDROCODONE/APAP 5/325MG 1 EACH TABLET PO PRN (15:30)
[2019-08-28 16:00] VITALS: BP 145/86
[2019-08-28] MEDS: HYDROCODONE/APAP 10/325MG 1 EA TABLET PO PRN (16:04)
[2019-08-28] MEDS: GABAPENTIN 100 MG CAPSULE PO SCH (16:36)
--- NOTE | 2019-08-28 19:10 | NUR ---
MS/RN CLOSING NOTES PATIENT CONTINUES TO REMAIN IN STABLE CONDITION THROUGHOUT THE SHIFT. PROVIDED COMFORT AND SAFETY. PATIENT NOTED WITH SIRIA MIDLINE AND R HAND IV SITE. INTACT AND PATENT. FLUSHING WELL. PERITONEAL DIALYSIS SITE DRESSING CLEAN, DRY AND INTACT WELL. ALL NEEDS ANTICIPATED. CALL LIGHT WITHIN REACHED. BED LOCKED AND IN LOWEST POSITION. SAFETY MAINTAINED. WILL CONTINUE TO MONITOR CLOSELY. ENDORSED TO PM NURSE FOR KAVITHA.
[2019-08-28 20:00] VITALS: BP 112/42
--- NOTE | 2019-08-28 20:30 | NUR ---
MS RN OPENING RECEIVED PATIENT IN BED WITH SITTER. PATIENT SHOWS NO SIGNS OF ANY DISTRESS AT MOMENT. HAS 2L OF O2 ON NASAL CANNULA WITH A O2 SAT OF 94%. PATIENT HAS IV ACCESS ON THE SIRIA MIDLINE AND A RIGHT HAND #20 G, PATIENT IS ON BEDREST WITH THE LE WEAKNESS. ALL SAFETY PRECATUIONS HAVE BEEN APPLIED. WILL CONTINUE TO MONITOR FOR KAVITHA.
[2019-08-28] MEDS: *INSULIN REGULAR(HUMULIN R)HUM 100 UNIT/ML VIAL SQ PRN (22:21)
[2019-08-29 04:00] VITALS: BP 121/64
[2019-08-29] MEDS: PIPERACILLIN /TAZOBACTAM 2.25 G in IV D5W 50 ML IV SCH ×2 (04:05→12:33)
[2019-08-29] MEDS: HYDROCODONE/APAP 10/325MG 1 EA TABLET PO PRN ×3 (04:16→21:34)
[2019-08-29] MEDS: HYDROMORPHONE INJ 2 MG/ML DISP.SYRIN IV PRN ×3 (05:36→23:01)
--- NOTE | 2019-08-29 07:10 | NUR ---
MS RN OPENING NOTE: RECEIVED PATIENT IN BED. AWAKE, ALERT AND ORIENTED X2. ON CONT. O2 VIA NC TOLERATING WELL. SATURATION @ 94%. NO SOB, NOT IN DISTRESS. CURRENTLY UNDERGOING PERITONEAL DIALYSIS, SITE IS PATENT AND DRESSING IS CLEAN, DRY AND SECURE. IV SITE ON SIRIA MIDLINE PATENT, DRESSING IS CLEAN, DRY AND SECURE. NO PAIN NOTED OR REPORTED AT THE MOMENT. CALL LIGHT IN REACH, SIDE RAILS UP, BED LOCKED, LOW AND AT SEMI-ANGELES'S POSITION. WILL CONTINUE TO MONITOR.
[2019-08-29 07:20] LABS: CALCIUM, SERUM 8.9 mg/dL (8.5-10.1); POTASSIUM 3.2 mmol/L (3.5-5.1)
[2019-08-29 07:22] LABS: CREATININE 14.3 mg/dL (0.6-1.3)
--- NOTE | 2019-08-29 07:25 | NUR ---
MS RN CLOSING PATIENT IN BED WITH NO SIGN OF ANY DISTRESS. PATIENT HAS ON NC WITH 2L OF O2 AND NO SIGNS OF SOB. ALL SAFETY PRECAUTIONS APPLIED. ENDORSED PATIENT TO MORNING SHIFT NURSE TO [facility].
[2019-08-29 08:00] VITALS: BP 111/78
[2019-08-29] MEDS: SEVELAMER CARBONATE 0.8 GM POWD.PACK PO SCH ×3 (08:08→18:19)
[2019-08-29] MEDS: PANTOPRAZOLE 40 MG TABLET.DR PO SCH (08:08)
[2019-08-29] MEDS: BLOOD SUGAR DIAGNOSTIC 1 EACH STRIP VI SCH ×4 (08:08→21:37)
[2019-08-29] MEDS: NEPRO VAN 237 ML CAN PO SCH ×3 (08:09→18:20)
[2019-08-29] MEDS: INSULIN REGULAR, HUMAN 100 UNIT/ML 3 ML VIAL SQ PRN ×2 (08:10→12:39)
[2019-08-29 09:10] LABS: BASOPHILS # (AUTO) 0.1 /CMM (0.0-0.2); BASOPHILS % (AUTO) 0.7 % (0.0-2.0); EOSINOPHILS % (AUTO) 3.1 % (0.0-6.0); HEMATOCRIT 35 % (33-45); HEMOGLOBIN 11.7 g/dL (11.5-14.8); LYMPHOCYTES # (AUTO) 1.7 /CMM (0.8-4.8); LYMPHOCYTES % (AUTO) 11.6 % (20.0-44.0); MEAN CORPUSCULAR HGB CONC 33 g/dl (31.0-36.0); MEAN CORPUSCULAR VOLUME 92 fL (82-100); MONOCYTES # (AUTO) 0.7 /CMM (0.1-1.30); NEUTROPHILS # (AUTO) 11.6 /CMM (1.8-8.9); NEUTROPHILS % (AUTO) 79.6 % (43.0-81.0); PLATELET COUNT (AUTO) 386 /CMM (150-450); RED BLOOD CELL COUNT(AUTO) 3.84 MIL/uL (4.0-5.2); WHITE BLOOD COUNT (AUTO) 14.6 K/uL (4.3-11.0)
[2019-08-29] MEDS: NYSTATIN (PYXIS) 500,000 UNIT/5 ML ORAL.SUSP PO SCH ×3 (10:10→18:18)
[2019-08-29] MEDS: GABAPENTIN 100 MG CAPSULE PO SCH ×3 (10:11→18:19)
[2019-08-29] MEDS: LACTOBACILLUS RHAMNOSUS GG 1 EACH CAP.SPRINK PO SCH ×2 (10:12→18:19)
[2019-08-29] MEDS: ASPIRIN 81 MG TAB.CHEW PO SCH (10:12)
[2019-08-29] MEDS: glipiZIDE 5 MG TABLET PO SCH ×2 (10:12→18:19)
[2019-08-29] MEDS: CLOPIDOGREL BISULFATE 75 MG TABLET PO SCH (10:13)
[2019-08-29] MEDS: NIFEdipine XL (30MG) 30 MG TAB PO SCH ×2 (10:13→18:19)
[2019-08-29] MEDS: CARVEDILOL 12.5 MG TABLET PO SCH ×2 (10:14→21:34)
[2019-08-29] MEDS: HEPARIN SODIUM, PORCINE 5000 UNITS/1 ML VIAL SQ SCH ×2 (10:15→21:35)
[2019-08-29] MEDS: HYDROGEL DRESSING 90 GM TUBE TP SCH (10:16)
[2019-08-29 16:00] VITALS: BP 101/62
[2019-08-29] MEDS: DEXTROSE 50%-WATER 50 ML DISP.SYRIN IV PRN (18:04)
--- NOTE | 2019-08-29 18:15 | NUR ---
MS WASSERMAN NOTE: PATIENT BLOOD GLUCOSE LEVEL AT 34. DEXTROSE INJ 50% ADMINISTERED, BLOOD SUGAR RECHECKED AT @143. Addendum: 08/29/19 at 1817 by ROSA BUI RN NO CHANGES IN LOC NOTED, PATIENT IS AWAKE AND RESPONSIVE PRIOR TO ADMINISTRATION OF DEXTROSE INJ 50%
--- NOTE | 2019-08-29 19:00 | NUR ---
MS RN CLOSING NOTE: PATIENT IS ASLEEP AND EASILY AROUSABLE. ON CONT. 02 @ 2LPM VIA NC, TOLERATING WELL. MIDLINE IV SITE AT RIGHT ARM PATENT. DRESSING INTACT AND PATENT. PERITONEAL DIALYSIS SITE DRESSING, CLEAN AND DRY. NO REPORTS OF PAIN NOTED. APPEARS RELAXED AND COMFORTABLE. INFORMED INCOMING RN REGARDING BS OF 34 AND ADMINISTRATION OF DEXTROSE INJ AND BS TO 134. SIDE RAILS UP. CALL LIGHT IN REACH, BED IN LOCKED, LOW AND SEMI FOWLERS POSITION.
[2019-08-29 20:00] VITALS: BP 142/64
[2019-08-29] MEDS: ZOLPIDEM TARTRATE 5 MG TABLET PO PRN (22:34)
[2019-08-30 04:00] VITALS: BP 114/56
[2019-08-30] MEDS: HYDROCODONE/APAP 10/325MG 1 EA TABLET PO PRN (06:08)
--- NOTE | 2019-08-30 07:51 | NUR ---
RN OPENING NOTES RECEIVED PATIENT RESTING IN BED COMFORTABLY, SITTER AT BEDSIDE. SHE IS AOX1, VERBAL, AND ON BED REST. SHE DENIES ANY PAIN, DISCOMFORT, OR SOB AT THIS TIME. SHE IS ON 2L OF OXYGEN TOLERATING WELL. AM BLOOD GLUCOSE SHOWED CRITICAL LEVEL OF 29, PT IS ALERT, ORANGE JUICE WAS GIVEN, WILL REASSESS. SHE IS ON A RENAL DIET, TOLERATING WELL. SIRIA MIDLINE H/L IS PATENT AND INTACT. WILL ADDRESS WOUNDS ACCORDING TO WOUND CARE PLAN. SAFETY MEASURES HAVE BEEN IMPLEMENTED, CALL LIGHT IS WITHIN REACH, BED IS IN LOWEST AND LOCKED POSITION, SIDE RIALS UP X2, WILL CONTINUE TO MONITOR FOR ANY CHANGES.
[2019-08-30] MEDS: BLOOD SUGAR DIAGNOSTIC 1 EACH STRIP VI SCH ×4 (07:54→21:42)
[2019-08-30] MEDS: INSULIN REGULAR, HUMAN 100 UNIT/ML 3 ML VIAL SQ PRN ×2 (07:55→12:02)
[2019-08-30 08:00] VITALS: BP 112/67
[2019-08-30] MEDS: PANTOPRAZOLE 40 MG TABLET.DR PO SCH (08:27)
[2019-08-30] MEDS: GABAPENTIN 100 MG CAPSULE PO SCH ×3 (08:28→17:11)
[2019-08-30] MEDS: NYSTATIN (PYXIS) 500,000 UNIT/5 ML ORAL.SUSP PO SCH ×3 (08:31→17:11)
[2019-08-30] MEDS: SEVELAMER CARBONATE 0.8 GM POWD.PACK PO SCH ×3 (08:31→18:51)
[2019-08-30] MEDS: NIFEdipine XL (30MG) 30 MG TAB PO SCH ×2 (08:31→17:00)
[2019-08-30] MEDS: CARVEDILOL 12.5 MG TABLET PO SCH ×2 (08:31→21:38)
[2019-08-30] MEDS: LACTOBACILLUS RHAMNOSUS GG 1 EACH CAP.SPRINK PO SCH ×2 (08:31→17:11)
[2019-08-30] MEDS: glipiZIDE 5 MG TABLET PO SCH ×2 (08:32→17:00)
[2019-08-30] MEDS: HYDROGEL DRESSING 90 GM TUBE TP SCH (08:34)
[2019-08-30] MEDS: CLOPIDOGREL BISULFATE 75 MG TABLET PO SCH (08:34)
[2019-08-30] MEDS: HEPARIN SODIUM, PORCINE 5000 UNITS/1 ML VIAL SQ SCH ×2 (08:34→21:37)
[2019-08-30 08:40] LABS: CALCIUM, SERUM 9.1 mg/dL (8.5-10.1); POTASSIUM 3.3 mmol/L (3.5-5.1)
[2019-08-30] MEDS: NEPRO VAN 237 ML CAN PO SCH ×3 (08:42→17:10)
[2019-08-30] MEDS: ASPIRIN 81 MG TAB.CHEW PO SCH (08:50)
--- NOTE | 2019-08-30 08:52 | NUR ---
RECHECKED BLOOD GLUCOSE, NO 81, PT IS MORE ALERT. WILL CONTINUE TO MONITOR FOR FURTHER CHANGES
[2019-08-30 08:53] LABS: CREATININE 14.7 mg/dL (0.6-1.3)
[2019-08-30] MEDS: HYDROMORPHONE INJ 2 MG/ML DISP.SYRIN IV PRN (10:12)
[2019-08-30] MEDS: DEXTROSE 50%-WATER 50 ML DISP.SYRIN IV PRN ×3 (11:57→21:46)
--- NOTE | 2019-08-30 12:03 | NUR ---
BLOOD GLUCOSE LEVEL AT 1200 IS 34, DEXTROSE INJECTION WAS GIVEN. PT IS AWAKE AND RESTING IN BED, WILL REASSESS BLOOD GLUCOSE.
[2019-08-30 16:00] VITALS: BP 105/55
--- NOTE | 2019-08-30 17:15 | NUR ---
GLIPIZIDE HELD BECAUSE PATIENT HAS BEEN HAVING LOW BLOOD GLUCOSE LEVELS THROUGHOUT THE DAY
--- NOTE | 2019-08-30 19:29 | NUR ---
RN CLOSING NOTES PATIENT IS RESTING COMFORTABLY IN BED AT THIS TIME, SITTER AT BEDSIDE. PT BLOOD GLUCOSE HAS BEEN RUNNING LOW THROUGHOUT THE DAY. NO ACUTE CHANGES OCCURRED THROUGHOUT THE SHIFT, VITAL SIGNS ARE STABLE, PT NEEDS HAVE BEEN MET. SAFETY MEASURES HAVE BEEN IMPLEMENTED, CALL LIGHT IS WITHIN REACH, SIDE RIALS UP X2, BED IS IN LOWEST AND LOCKED POSITION, PT HAS BEEN ENDORSED TO NIGHTSHIFT RN FOR CONTINUITY OF CARE.
--- NOTE | 2019-08-30 19:41 | NUR ---
MS RN NOTES RECEIVED PT ON BED. SLEEPING. A/O X1. SITTER AT BEDSIDE. ENCOURAGED TO IT. ON NASAL CANNULA 2LPM NO RESPIRATORY DISTRESS NOTED. IV ACCESS ON RAC G20 D5NS RUNNING @75CC/HR. HEAD OF BED ELEVATED. SIDE RAILS UP. CALL LIGHT WITHIN REACH. BED ALARM ON. BED IN LOW AND LOCKED POSITION. WILL MONITOR PT CLOSELY.
--- NOTE | 2019-08-30 22:23 | NUR ---
MS RN NOTES BS OF 34MG/DL, GIVEN ORANGE JUICE AND D50 PER PROTOCOL. INFORMED SPLASH LINE OPERATOR DR. PER SPLASH LINE OPERATOR , D51/2NS @75CC/HR. WILL MONITOR PT CLOSELY.
[2019-08-30] MEDS ORDERED: IV D5/0.45 NACL 1,000 ML IV PRN (22:30)
[2019-08-31] MEDS: HYDROMORPHONE INJ 2 MG/ML DISP.SYRIN IV PRN (02:46)
[2019-08-31 04:00] VITALS: BP 106/42
[2019-08-31] MEDS: DEXTROSE 50%-WATER 50 ML DISP.SYRIN IV PRN (06:01)
[2019-08-31] MEDS: IV 10% DEXTROSE 1,000 ML IV PRN ×2 (06:24→16:00)
--- NOTE | 2019-08-31 06:27 | NUR ---
MS RN NOTES BS CHECK OF 18MG/DL REPEAT OF 17MG/DL, GIVEN D50% IVP PER PROTOCOL. CALLED CRAB FISHER. PER CRAB FISHER ACCUCHECK Q4H, TELE STATUS , AND D10% IVF @ 125CC/HR. WILL MONITOR PT CLOSELY ,
[2019-08-31] MEDS: BLOOD SUGAR DIAGNOSTIC 1 EACH STRIP IN SCH ×5 (06:38→20:56)
[2019-08-31 07:08] LABS: CALCIUM, SERUM 8.4 mg/dL (8.5-10.1); POTASSIUM 3.2 mmol/L (3.5-5.1)
--- NOTE | 2019-08-31 07:15 | NUR ---
[facility] SEASONAL OPENING NOTE RECEIVED REPORT FROM [facility] SHIFT NURSE. PT ASLEEP IN BED, AROUSABLE TO NAME AND TOUCH, ALERT AND ORIENTED X 1 TO NAME ONLY, ON 02 VIA NC 2L/MIN, SATURATING WELL, RESPIRATIONS EVEN AND UNLABORED, NO SIGNS OF RESPIRATORY DISTRESS NOTED. IV INFUSING D10 INTO RIGHT UPPER ARM MIDLINE AT 125ML/HR. MIDLINE DRESSING IS CLEAN, DRY, INTACT. BLOOD SUGAR CHECKED 121 MG/DL. SINUS ARRHYTHMIA WITH INVERTED T WAVES ON SALES DEVELOPER. BED IN LOW POSITION, LOCKED, CALL LIGHT WITHIN REACH. INTRODUCED SELF AND DISCUSSED PLAN OF CARE.
--- NOTE | 2019-08-31 07:19 | NUR ---
COST SPECIALIST NOTES ENDORSED TO AM NURSE FOR CONTINUITY OF CARE.
[2019-08-31] MEDS: BLOOD SUGAR DIAGNOSTIC 1 EACH STRIP VI SCH ×2 (07:24→12:30)
[2019-08-31] MEDS: PANTOPRAZOLE 40 MG TABLET.DR PO SCH (07:27)
[2019-08-31 07:36] LABS: CREATININE 15.1 mg/dL (0.6-1.3)
[2019-08-31 08:00] VITALS: BP 100/78
[2019-08-31] MEDS: CLOPIDOGREL BISULFATE 75 MG TABLET PO SCH (08:30)
[2019-08-31] MEDS: LACTOBACILLUS RHAMNOSUS GG 1 EACH CAP.SPRINK PO SCH ×2 (08:30→17:10)
[2019-08-31] MEDS: GABAPENTIN 100 MG CAPSULE PO SCH ×3 (08:30→17:10)
[2019-08-31] MEDS: glipiZIDE 5 MG TABLET PO SCH ×2 (08:30→17:10)
[2019-08-31] MEDS: NYSTATIN (PYXIS) 500,000 UNIT/5 ML ORAL.SUSP PO SCH ×3 (08:31→17:11)
[2019-08-31] MEDS: NIFEdipine XL (30MG) 30 MG TAB PO SCH ×2 (08:31→17:10)
[2019-08-31] MEDS: ASPIRIN 81 MG TAB.CHEW PO SCH (08:31)
[2019-08-31] MEDS: NEPRO VAN 237 ML CAN PO SCH ×3 (08:38→17:22)
[2019-08-31] MEDS: HYDROGEL DRESSING 90 GM TUBE TP SCH (08:38)
[2019-08-31] MEDS: CARVEDILOL 12.5 MG TABLET PO SCH ×2 (08:38→20:40)
[2019-08-31] MEDS: HYDROCODONE/APAP 10/325MG 1 EA TABLET PO PRN ×3 (08:38→20:18)
[2019-08-31] MEDS: HEPARIN SODIUM, PORCINE 5000 UNITS/1 ML VIAL SQ SCH ×2 (08:39→20:41)
[2019-08-31] MEDS: SEVELAMER CARBONATE 0.8 GM POWD.PACK PO SCH ×3 (09:04→17:10)
[2019-08-31 12:00] VITALS: BP 134/55
[2019-08-31 16:00] VITALS: BP 122/64
[2019-08-31] MEDS: INSULIN REGULAR, HUMAN 100 UNIT/ML 3 ML VIAL SQ PRN (17:25)
--- NOTE | 2019-08-31 18:59 | NUR ---
BANK TELLER MACHINE MECHANIC CLOSING NOTE PT ASLEEP IN BED, AROUSABLE TO NAME AND TOUCH, ALERT AND ORIENTED X 1 TO NAME ONLY, ON ROOM AIR, SATURATING WELL, RESPIRATIONS EVEN AND UNLABORED, NO SIGNS OF RESPIRATORY DISTRESS NOTED. IV INFUSING D10 INTO RIGHT UPPER ARM MIDLINE AT 125ML/HR. MIDLINE DRESSING IS CLEAN, DRY, INTACT. SINUS RHYTHM ON GANG PUSHER. BED IN LOW POSITION, LOCKED, CALL LIGHT WITHIN REACH. WILL ENDORSE TO NOC SHIFT NURSE.
--- NOTE | 2019-08-31 19:10 | NUR ---
RN NOTES: RECEIVED ASLEEP ON BED, ON SEMI FOWLERS POSITION, WITH 1;1 SITTER AT BED SIDE, A/OX1,WITH PERIODS OF CONFUSION AND FORGETFULNESS, SLIGHTLY LETHARGIC AND SLEEPY, ABLE TO VERBALIZED NEEDS, NOW TOLERATING RA SPO2-93%, ON BED REST, ON TELE MONITOR SINUS TACHARDIA-109, NO PAIN OR DISCOMFORT,SIRIA MIDLINE INTACT IVF OF D10% ONGOING AT 125 ML/HR VIA INFUSION PUMP, INCONTINENT, NO SIGN OF RESPIRATORY DISTRESS UPON RECEIVING FROM PREVIOUS SHIFT. TURNING AND REPOSITION Q 2H. KEPT ON CLOSE WATCH.
--- NOTE | 2019-08-31 20:19 | NUR ---
RN NOTES: PATIENT COMPLAINED OF PAIN 10/10 ON THE ENTIRE BODY, REQUEST FOR PAIN MEDICATION BP170/66, SPO2 97%, NORCO GIVEN, NON PHARMACOLOGIC INTERVENTION RENDERED. WARM BLANKET, BACK RUB AND DIM LIT.
[2019-08-31] MEDS: *INSULIN REGULAR(HUMULIN R)HUM 100 UNIT/ML VIAL SQ PRN (20:59)
--- NOTE | 2019-08-31 21:02 | NUR ---
RN NOTES: BLOOD SUGAR CHECKED- 144, INSULIN GIVEN PER SCALE, IVF OF D10% CONTINUE, OTHER DUE ORAL MEDICATION GIVEN, TOLERATED.
[2019-08-31 22:00] VITALS: BP 160/60
[2019-09-01] MEDS: IV 10% DEXTROSE 1,000 ML IV PRN ×3 (00:14→21:38)
--- NOTE | 2019-09-01 00:17 | NUR ---
RN NOTES: HAD BM, CLEAN AND CHANGE, DRESSING DONE ON THE LEFT HAND AND SACROCOCCYX AREA, PROCEDURE TOLERATED, AGREE TO CHECK V/S, LOOKS DROWSY AND VERY SLEEPY, SHE WANNA GO BACK TO SLEEP,CALL LIGHT WITHIN EASY REACH. -IVF FINISHED , NEW BAG OF D10% STARTED AT 125 ML/HR AT 0014.
[2019-09-01] MEDS: BLOOD SUGAR DIAGNOSTIC 1 EACH STRIP IN SCH ×6 (01:13→20:45)
--- NOTE | 2019-09-01 01:13 | NUR ---
RN NOTES: BLOOD SUGAR LFKPI=573, NO INSULIN PER SCALE, KEPT MONITORED FOR AIGN OF HYPER/HYPOGLYCEMIA.
[2019-09-01] MEDS: HYDROCODONE/APAP 10/325MG 1 EA TABLET PO PRN (01:35)
--- NOTE | 2019-09-01 01:36 | NUR ---
RN NOTES: AWAKE , REPOSITIONED, COMPLAINED OF SEVERE PAIN, REQUEST FOR HER PAIN MEDICATION, BP-130/90, NON PHARMACOLOGIC INTERVENTION RENDERED, BACK RUB, DIM LIT AND WARM BLANKET PROVIDED.
[2019-09-01 02:00] VITALS: BP 135/95
--- NOTE | 2019-09-01 04:00 | NUR ---
RN NOTES: ABLE TO SLEEP AND REST, NO SOB, NO PAIN OF DISCOMFORT AT THIS TIME, KEPT ON CLOSE WATCH.
--- NOTE | 2019-09-01 04:56 | NUR ---
RN NOTES: BLOOD SUGAR CHECK-133, WILL CONTINUE TO MONITOR FOR KAVITHA.
[2019-09-01 06:00] VITALS: BP 130/44
--- NOTE | 2019-09-01 06:32 | NUR ---
RN NOTES: ASLEEP IN BED, PUFFY FACE AND EYES, LATEST WEIGHT-150, KEPT ON CLOSE WATCH, CALL LIGHT WITHIN EASY REACH.FALL,SAFETY AND ASPIRATION PRECAUTION OBSERVED, BED LOW AND LOCKED.LAB TEST DONE. ENDORSED FOR CONTINUITY OF CARE.
--- NOTE | 2019-09-01 07:00 | NUR ---
TUBE SKIVER OPENING NOTES PATIENT IS ASLEEP IN BED BUT IS EASILY ARSOUNDS WITH NAME AND TOUCH, PATIENT IS ORIENTED X1 . PATIENT IS CURRENTLY ON ROOM AIR SATURATING WELL , PATIENT SHOWS NO SIGNS OF DISTRESS. PATIENT IS CURRENTLY INFLUSING D10 RIGHT UPPER ARM MID LINE AT 125 / HR . MID LINE DRESSING IS CLEAN, DRY, INTACT. PATIENTS SHOWS SR ON MONITOR IN THE 70'S. SAFETY PRECAUTION PER HOSPITAL POLICY. PATIENT BED IN LOWEST POSITION , BED LOCK, CALL LIGHT WITH IN REACH. WILL CONTINUE TREATMENT PLAN ORDERED.
[2019-09-01 07:08] LABS: CALCIUM, SERUM 8.6 mg/dL (8.5-10.1); POTASSIUM 3.3 mmol/L (3.5-5.1)
[2019-09-01 07:22] LABS: CREATININE 14.4 mg/dL (0.6-1.3)
[2019-09-01] MEDS: GABAPENTIN 100 MG CAPSULE PO SCH ×4 (09:55→17:51)
[2019-09-01] MEDS: CLOPIDOGREL BISULFATE 75 MG TABLET PO SCH (09:56)
[2019-09-01] MEDS: ASPIRIN 81 MG TAB.CHEW PO SCH (09:56)
[2019-09-01] MEDS: HEPARIN SODIUM, PORCINE 5000 UNITS/1 ML VIAL SQ SCH ×2 (09:56→20:50)
[2019-09-01] MEDS: NYSTATIN (PYXIS) 500,000 UNIT/5 ML ORAL.SUSP PO SCH ×5 (09:56→17:52)
[2019-09-01] MEDS: PANTOPRAZOLE 40 MG TABLET.DR PO SCH (09:57)
[2019-09-01 10:00] VITALS: BP 116/38
[2019-09-01] MEDS: SEVELAMER CARBONATE 0.8 GM POWD.PACK PO SCH ×4 (10:07→18:00)
[2019-09-01] MEDS: NIFEdipine XL (30MG) 30 MG TAB PO SCH ×2 (10:07→17:00)
[2019-09-01] MEDS: LACTOBACILLUS RHAMNOSUS GG 1 EACH CAP.SPRINK PO SCH ×3 (10:08→17:51)
[2019-09-01] MEDS: CARVEDILOL 12.5 MG TABLET PO SCH ×2 (10:08→20:47)
[2019-09-01] MEDS: glipiZIDE 5 MG TABLET PO SCH ×3 (10:08→17:51)
[2019-09-01] MEDS: NEPRO VAN 237 ML CAN PO SCH ×3 (10:12→17:53)
[2019-09-01] MEDS: HYDROGEL DRESSING 90 GM TUBE TP SCH (10:13)
--- NOTE | 2019-09-01 10:30 | NUR ---
VERTICA ARCHITECT NOTES PATIENT CURRENTLY RECEIVING PD BY DIALYSIS NURSE.
[2019-09-01] MEDS: HYDROMORPHONE INJ 2 MG/ML DISP.SYRIN IV PRN (12:00)
[2019-09-01 14:00] VITALS: BP 116/38
[2019-09-01 18:00] VITALS: BP 112/21
--- NOTE | 2019-09-01 19:00 | NUR ---
AERODYNAMICS TEACHER OPENING NOTES PATIENT IS ASLEEP BUT IS EASILY AROUSED. WITH NAME AND TOUCH PATIENT IS A/O X3 PATIENT IS CURRENTLY ON OXYGEN TREATMENT AND STURATING WELL PATIENT SHOWS NO SIGNS OF DISTRESS. PATIENT HAD PD TODAY BY DIALYSIS NURSE. PATIENT DURING MEDICATION MANAGEMENT WAS NON COMPLIENT REFUSED MEDICATIONS AND ACCUCHECK. PATIENT FAMILY WAS INFORMED ABOUT TREATMENT PLANS AND CARE PLANS REGARDING HER CARE PATIENT IS CURRENTLY IN MONITORED IN THE 70'S SAFETY MAINTAIN, CALL LIGHT WITH IN REACH, BED AT LOWEST POSITION
--- NOTE | 2019-09-01 19:30 | NUR ---
RN Opening Notes Received patient from LISY Hastings at 1925. Patient currently asleep in bed, easily arousable. A/O x1, with periods of confusion and forgetfulness. Patient able to verbalize needs. Patient on room air tolerating well. Tele monitor currently sinus rhythm 90 according to cardiac monitor technician. 1:1 sitter at bed side. No complaints of pain at this time. No facial grimacing indicating pain or discomfort at this time. SIRIA midline intact with IVF currently running D10% at 125 ml/hr. Will turn and reposition every 2 hours. Safety precautions implemented; call light within reach, bed lowest position, bed locked, side rails up x2. Will closely monitor patient.
--- NOTE | 2019-09-01 20:05 | NUR ---
RN Notes Patient agreed to check vital signs. With constant explaining from myself and ADRIANNA Reyes/Nora.
--- NOTE | 2019-09-01 20:50 | NUR ---
RN Notes Patient had to be convinced to have blood sugar checked and to have medications given with a good 10 minutes of explaining. Patient eventually agreed. Insulin 8 units for blood sugar 325, oral, and all other medication given.
[2019-09-01] MEDS: *INSULIN REGULAR(HUMULIN R)HUM 100 UNIT/ML VIAL SQ PRN (20:51)
[2019-09-01 22:00] VITALS: BP 114/68
--- NOTE | 2019-09-01 22:32 | NUR ---
RN Notes Vital signs stable. Will let Dr. Vazquez know.
--- NOTE | 2019-09-01 22:33 | NUR ---
RN notes 2233 Patient vomited coffee-like color at 2220. Explained to Dr. Vazquez labs have not been drawn since 08/29/19 due to patient always refusing am labs. Most labs stable for 08/29/19. Dr. Vazquez aware. Dr. Vazquez Ordered: D/C heparin and start protonix 40 mg IV bid. Check STAT CBC.
[2019-09-01 22:59] LABS: BASOPHILS # (AUTO) 0.1 /CMM (0.0-0.2); BASOPHILS % (AUTO) 0.9 % (0.0-2.0); EOSINOPHILS % (AUTO) 2.5 % (0.0-6.0); HEMATOCRIT 31 % (33-45); HEMOGLOBIN 10.3 g/dL (11.5-14.8); LYMPHOCYTES # (AUTO) 1.2 /CMM (0.8-4.8); LYMPHOCYTES % (AUTO) 9.2 % (20.0-44.0); MEAN CORPUSCULAR HGB CONC 34 g/dl (31.0-36.0); MEAN CORPUSCULAR VOLUME 90 fL (82-100); MONOCYTES # (AUTO) 0.7 /CMM (0.1-1.30); MONOCYTES % (AUTO) 5.3 % (2.0-12.0); NEUTROPHILS # (AUTO) 10.5 /CMM (1.8-8.9); NEUTROPHILS % (AUTO) 82.1 % (43.0-81.0); PLATELET COUNT (AUTO) 313 /CMM (150-450); RED BLOOD CELL COUNT(AUTO) 3.41 MIL/uL (4.0-5.2); WHITE BLOOD COUNT (AUTO) 12.8 K/uL (4.3-11.0)
[2019-09-02] MEDS: BLOOD SUGAR DIAGNOSTIC 1 EACH STRIP IN SCH ×6 (01:00→21:56)
--- NOTE | 2019-09-02 01:02 | NUR ---
RN Notes Patient refused 0100 blood sugar check. Patient consistently pulls arm away forcefully, flexes arms and states "Why do you have to keep taking my blood??!! You have taken enough!" I educated patient about blood sugar checks to monitor for hypo/hyperglycemia and patient insists on refusing.
[2019-09-02 02:00] VITALS: BP 104/63
--- NOTE | 2019-09-02 05:59 | NUR ---
RN Notes Patient refused 0500 blood sugar check. Patient is easily awakened to my voice. When asked if I can take a sample of blood she pulls her hand/arm forcefully. I explained to patient that we need to monitor her blood sugar for low/high blood levels. Patient insists on refusing. Patient has her arm withdrawn from me.
[2019-09-02 06:00] VITALS: BP 144/64
--- NOTE | 2019-09-02 06:25 | NUR ---
RN Closing Notes Patient is currently asleep, easily arousable to voice. Patient A/O x 1, with periods of confusion and forgetfulness. Patient on room air tolerating well. No signs of respiratory distress. No shortness of breath noted. IV site remains intact with IVF running, no infection/infiltration. Patient was non compliant with the last two accucheks due at 0100 and 0500. Patient currently SR 80'S on tele monitor. Safety precautions implemented; call light within reach, bed locked, bed lowest position. Will continue to monitor and then will endorse to dayssdft nurse for continuity of care.
--- NOTE | 2019-09-02 07:21 | NUR ---
RN OPENING NOTES RECEIVED PATIENT RESTING IN BED COMFORTABLY. SHE IS AOX1, VERBAL, DROWSY, AND ON BED REST. SHE IS ON 2L OF OXYGEN VIA NC, TOLERATING WELL, NO S/SX OF RESP DISTRESS OR SOB. CHEST RISES AND FALLS EVENLY. TELE MONITOR SHOWING SR. PT HAS MULTIPLE WOUNDS THROUGHOUT THE BODY, WILL ADDRESS PER WOUND TREATMENT PLAN. PER NIGHTSHIFT RN, PT IS REFUSING ACCU CHECKS AND VITAL SIGNS. SIRIA MIDLINE IS INTACT, SAFETY MEASURES HAVE BEEN IMPLEMENTED, CALL LIGHT IS WITHIN REACH, BED IS IN LOWEST AND LOCKED POSITION, SIDE RAILS UP X2, WILL CONTINUE TO MONITOR FOR ANY CHANGES
[2019-09-02] MEDS: PANTOPRAZOLE 40 MG TABLET.DR PO SCH (07:30)
[2019-09-02 08:00] VITALS: BP 137/78
[2019-09-02] MEDS: SEVELAMER CARBONATE 0.8 GM POWD.PACK PO SCH ×3 (08:01→18:00)
[2019-09-02] MEDS: NEPRO VAN 237 ML CAN PO SCH ×3 (08:09→17:00)
[2019-09-02] MEDS: ASPIRIN 81 MG TAB.CHEW PO SCH (09:00)
[2019-09-02] MEDS: GABAPENTIN 100 MG CAPSULE PO SCH ×3 (09:00→17:00)
[2019-09-02] MEDS: NYSTATIN (PYXIS) 500,000 UNIT/5 ML ORAL.SUSP PO SCH ×3 (09:00→17:00)
[2019-09-02] MEDS: CARVEDILOL 12.5 MG TABLET PO SCH ×2 (09:00→21:00)
[2019-09-02] MEDS: LACTOBACILLUS RHAMNOSUS GG 1 EACH CAP.SPRINK PO SCH ×2 (09:00→17:00)
[2019-09-02] MEDS: HEPARIN SODIUM, PORCINE 5000 UNITS/1 ML VIAL SQ SCH ×2 (09:00→21:00)
[2019-09-02] MEDS: NIFEdipine XL (30MG) 30 MG TAB PO SCH ×2 (09:00→17:00)
[2019-09-02] MEDS: CLOPIDOGREL BISULFATE 75 MG TABLET PO SCH (09:00)
[2019-09-02] MEDS: glipiZIDE 5 MG TABLET PO SCH ×2 (09:00→17:00)
[2019-09-02] MEDS: HYDROGEL DRESSING 90 GM TUBE TP SCH (09:45)
[2019-09-02 09:51] LABS: CALCIUM, SERUM 8.3 mg/dL (8.5-10.1); POTASSIUM 3.2 mmol/L (3.5-5.1)
[2019-09-02 10:09] LABS: CREATININE 13.5 mg/dL (0.6-1.3)
--- NOTE | 2019-09-02 10:11 | NUR ---
RN NOTES PT MORNING BLOOD GLUCOSE LEVEL WAS 29, PT WAS VERY LETHARGIC AND HARD TO AROUSE. IV DEXTROSE WAS ADMINISTERED. PT IS NOW MORE ALERT, WILL CONTINUE TO MONITOR. GLIPIZIDE WAS HELD. PER DR. FARMER, HEPARIN WAS HELD FOR POSSIBLE GI BLEED, PREVIOUS SHIFT FOUND COFFEE GROUND EMESIS AND H&H HAS SLIGHTLY DROPPED, WILL CONTINUE TO MONITOR
[2019-09-02 12:00] VITALS: BP 127/84
--- NOTE | 2019-09-02 13:45 | NUR ---
RN NOTES PATIENT IS CURRENTLY MORE ALERT, HOWEVER, SHE IS REFUSING EVERYTHING. UNABLE TO ADMIN MEDICATIONS TODAY. PT REFUSED 1300 ACCU CHECK, CURRENTLY HAS D10 RUNNING. PATIENT ALSO REFUSED DRESSING CHANGE ON SACRUM. WILL CONTINUE TO MONITOR FOR ANY CHANGES.
--- NOTE | 2019-09-02 14:42 | NUR ---
RN NOTES SOPHY THACKER DNP, MADE AWARE OF PATIENT'S REFUSAL OF TREATMENT. WILL CONTINUE TO MONITOR
[2019-09-02] MEDS: DEXTROSE 50%-WATER 50 ML DISP.SYRIN IV PRN ×2 (15:15→17:02)
--- NOTE | 2019-09-02 15:23 | NUR ---
PATIENT ALLOWED ME TO CHECK HER BLOOD GLUCOSE, LEVEL OF 34. IV DEXTROSE INJECTION, WILL CONTINUE TO MONITOR
[2019-09-02 16:00] VITALS: BP 127/54
--- NOTE | 2019-09-02 17:36 | NUR ---
PT REFUSED EVENING MEDICATIONS AND RECHECK OF BLOOD SUGAR AFTER DEXTROSE INJECTION. WAS ABLE TO CHECK BLOOD SUGAR AT 17:30, 193. NO INSULIN GIVEN BECAUSE PATIENT IS NOT EATING ANY FOOD, PAUSED D10 INFUSING AND WILL REASSESS.
--- NOTE | 2019-09-02 18:49 | NUR ---
RN CLOSING NOTES PATIENT IS RESTING COMFORTABLY IN BED WITH MOTOR ANALYST AT BEDSIDE. THROUGHOUT THE WHOLE DAY, PATIENT REFUSED ALMOST ALL CARE. PATIENT REFUSED ALL MEDICATIONS, MULTIPLE ACCU CHECKS, AND WOUND CARE. PT BLOOD GLUCOSE HAS BEEN FLUCTUATING THROUGHOUT THE DAY FROM THE 30'S TO 180'S, DEXTROSE IV WAS GIVEN WHEN LOW, UNABLE TO GIVE INSULIN WHEN HIGH BECAUSE PATIENT HAD NO APPETITE AND ATE NOTHING. WITH THE HELP OF THE SITTER, WE WERE ABLE TO ASSESS HER BLOOD GLUCOSE AT CERTAIN TIMES. SOPHY THACKER DNP, WAS NOTIFIED OF PT'S CONSTANT REFUSAL OF CARE. NO ACUTE CHANGES OCCURRED THROUGHOUT THE SHIFT, VITAL SIGNS ARE STABLE. SAFETY MEASURES HAVE BEEN IMPLEMENTED, CALL LIGHT IS WITHIN REACH, BED IS IN LOWEST AND LOCKED POSITION, SIDE RAILS UP X2, WILL ENDORSE TO NIGHTSHIFT RN FOR CONTINUITY OF CARE.
[2019-09-02 20:00] VITALS: BP 127/54
--- NOTE | 2019-09-02 20:00 | NUR ---
TELE/RN OPENING NOTES RECEIVED PATIENT IN BED, ISOLATIVE, REFUSE CARE, DISCUSSED IMPORTANCE OF VITAL SIGNS MONITOIRNG ASWELL BLOOD SUGAR MONITORING, STAYS IN BED, UNMOTIVATED LEARNER, REFUSE TO EAT DINNER, IVFLUIDS RUNNING WITH DEXTROSE.PREFER TO KEEPT TO HERSELF.MONITORING FOR ANY CHANGES. BED LOCKED,
[2019-09-02] MEDS: IV 10% DEXTROSE 1,000 ML IV PRN (21:09)
--- NOTE | 2019-09-02 23:54 | NUR ---
tele/rn notes PATIENTALLOWED TO HAVE BLOOD SUGAR CHECK BUT REFUSED TO HAVE TELE MONITOR , BLOOD PRESSURE CHECK AND REDUSE TO HAVE DINNER. ON IV WITH D5. WILL MONITOR.NON COMPLIANCE BEHAVIOR.
--- NOTE | 2019-09-03 00:20 | NUR ---
TELE/RN NOTES PATIENT EXHIBITED OBSERVE TRYING TO GGET OUT OF BED, LAYING FLAT ON BED, AND UNABLE TO RELAX, OXYGEN 3 LITER AND NSINUS RHTYM. REQUIRE TO BE CHANGE, HAD BM AND HAVING SHALOW BREATHING, AND PULSE OXIMETER READING AT 77%, REQUIRE NON BREATHING TREATMENT AND MD AWARE AT 15 LITER PATIENT OXYGENATION IMPROVED,MD ORDER FOR STAT ABG AND CHEST XRAY.TO CARRY OUT ORDERS.
[2019-09-03 01:07] LABS: ABG BASE EXCESS -0.3 mmol/L; ABG OXYGEN SATURATION 98.7 % (92.0-98.5); ABG PCO2 29.1 mmHg (35.0-45.0); ABG PH 7.499 (7.350-7.450); AaDO2 505.9 mmHg; COHb 0.4 % (0.5-1.5); MetHb 0.3 % (0.0-1.5); SITE, ABG Right Brachial
[2019-09-03] MEDS: BLOOD SUGAR DIAGNOSTIC 1 EACH STRIP IN SCH ×6 (01:31→21:13)
--- NOTE | 2019-09-03 01:37 | NUR ---
TELE/RN NOTES RECEIVED ABD RESULT COMMUNICATED TO MD FARMER AWAITING FOR ORDER PWR RT HYPOXIC REQUIRING NON BREATHING MASK AT 15L AND CHEST XRAY RESULT WITH PULMONARY EDEMA, BLOOD SUGAR CHECK AT 130. AWAITING FOR ORDER.
[2019-09-03 01:45] VITALS: BP 150/95
[2019-09-03 04:00] VITALS: BP 150/95
[2019-09-03] MEDS ORDERED: FUROSEMIDE 40 MG/4 ML VIAL IV SCH (04:00)
--- NOTE | 2019-09-03 04:02 | NUR ---
TELE/RN NOTES RECEIVED ORDER FROM MD FARMER REGARDING XRAY RESULT OF PULMONARY RDEMA TO ORDER LASIX 40MG IVP ONE TIME ORDER AND ZOSYN AND VANCOMYCIN PHARMACY TO DOSE..
[2019-09-03] MEDS ORDERED: VANCOMYCIN 1 GM in IV D5W 250ml IV SCH (04:30)
[2019-09-03] MEDS ORDERED: PIPERACILLIN /TAZOBACTAM 2.25 G VIAL IV ONE (04:45)
[2019-09-03] MEDS ORDERED: VANCOMYCIN 1 GM VIAL ONE (04:45)
[2019-09-03] MEDS: PIPERACILLIN /TAZOBACTAM 2.25 G in IV D5W 50 ML IV SCH ×3 (04:56→21:16)
[2019-09-03] MEDS ORDERED: FEE PK DOSING 1 MIN EA MC ONE (06:19)
[2019-09-03] MEDS ORDERED: VANCOMYCIN 500 MG in IV D5W 100 ML IV PRN (06:30)
--- NOTE | 2019-09-03 06:48 | NUR ---
TELE/RN NOTES PATIENT IN BED, WIT H 15 LITER OXYGEN ON NON BREATHING MASK, HOB ELEVATED, RESPIRATION SHALLOW, ON CONTINOUS PULSE MONITOIRNG WITH SATURATION OF 95%, ORDER RECEIVED FROM AM RN FOR IV ANTIBIOTIC PHARMACY TO DOSE ZOSYN AND VANCOMYCIN ADMIINISTERED. LASIX 40MG IBV ADMINISTERED, MONITOIRNG FOR ANY CHANGES,BED LOCKED, CALL LIGHTS WITHIN REACH. WILL ENDORSE TO AM RN FOR KAVITHA.
--- NOTE | 2019-09-03 07:00 | NUR ---
LIFT OPERATOR NOTES PATIENT RECEIVED BY PM SHIFT. PATIENT AWAKE AND EASILY AROUSED. PATIENT IS SR RHYTHM AT 80'S . PATIENT IS CURRENTLY ON NON REBREATHER AT 15L . PATIENT SIRIA MIDLINE IS ON D10 125ML PER HOUR. PATIENT BED IN LOWEST POSITION, SAFETY MAINTAINED. CALL LIGHT WITH IN REACH. PATIENT HAD SITTER BY BED SIDE.
[2019-09-03 07:12] LABS: CALCIUM, SERUM 8.1 mg/dL (8.5-10.1); POTASSIUM 3.6 mmol/L (3.5-5.1)
[2019-09-03 07:13] LABS: CREATININE 12.3 mg/dL (0.6-1.3)
[2019-09-03] MEDS: LACTOBACILLUS RHAMNOSUS GG 1 EACH CAP.SPRINK PO SCH ×2 (08:48→17:00)
[2019-09-03] MEDS: CLOPIDOGREL BISULFATE 75 MG TABLET PO SCH (08:48)
[2019-09-03] MEDS: GABAPENTIN 100 MG CAPSULE PO SCH ×3 (08:48→17:00)
[2019-09-03] MEDS: PANTOPRAZOLE 40 MG TABLET.DR PO SCH (08:48)
[2019-09-03] MEDS: SEVELAMER CARBONATE 0.8 GM POWD.PACK PO SCH ×4 (08:49→17:07)
[2019-09-03] MEDS: CARVEDILOL 12.5 MG TABLET PO SCH ×2 (08:49→21:17)
[2019-09-03] MEDS: ASPIRIN 81 MG TAB.CHEW PO SCH (08:49)
[2019-09-03] MEDS: glipiZIDE 5 MG TABLET PO SCH (08:49)
[2019-09-03] MEDS: NYSTATIN (PYXIS) 500,000 UNIT/5 ML ORAL.SUSP PO SCH ×4 (08:50→17:00)
[2019-09-03] MEDS: NEPRO VAN 237 ML CAN PO SCH ×3 (08:53→17:00)
[2019-09-03] MEDS: NIFEdipine XL (30MG) 30 MG TAB PO SCH ×2 (08:53→17:00)
[2019-09-03] MEDS: HEPARIN SODIUM, PORCINE 5000 UNITS/1 ML VIAL SQ SCH ×2 (08:54→21:16)
--- NOTE | 2019-09-03 10:00 | NUR ---
NUISANCE WILDLIFE CONTROL OPERATOR NOTES PATIENT BLOOD SUGAR AT 38. PATIENT WAS AWAKE AND ALERT VERBALLY RESPONSIVE NO SIGNS HYPOGLYCEMIC . PATIENT EATING BREAKFAST. CALL LIGHT WITH IN REACH INSTRUCTED TO CALL FOR ASSISTANCE
[2019-09-03 12:00] VITALS: BP 83/40
[2019-09-03] MEDS: HYDROGEL DRESSING 90 GM TUBE TP SCH (12:33)
[2019-09-03 12:58] LABS: BASOPHILS % (AUTO) 0.3 % (0.0-2.0); EOSINOPHILS % (AUTO) 1.7 % (0.0-6.0); HEMATOCRIT 28 % (33-45); HEMOGLOBIN 9.5 g/dL (11.5-14.8); LYMPHOCYTES # (AUTO) 1.6 /CMM (0.8-4.8); LYMPHOCYTES % (AUTO) 10.5 % (20.0-44.0); MEAN CORPUSCULAR HGB CONC 34 g/dl (31.0-36.0); MEAN CORPUSCULAR VOLUME 89 fL (82-100); MONOCYTES # (AUTO) 1.1 /CMM (0.1-1.30); MONOCYTES % (AUTO) 7.5 % (2.0-12.0); PLATELET COUNT (AUTO) 300 /CMM (150-450); RED BLOOD CELL COUNT(AUTO) 3.12 MIL/uL (4.0-5.2)
[2019-09-03] MEDS: CADEXOMER IODINE 40 GM TUBE TP SCH (13:22)
[2019-09-03] MEDS: IV 10% DEXTROSE 1,000 ML IV PRN (13:31)
[2019-09-03 14:56] LABS: CALCIUM, SERUM 8.1 mg/dL (8.5-10.1); POTASSIUM 3.1 mmol/L (3.5-5.1)
[2019-09-03 15:00] LABS: CREATININE 11.3 mg/dL (0.6-1.3)
--- NOTE | 2019-09-03 15:00 | NUR ---
RN NOTES TALENT ACQUISITION CONSULTANT NOTIFIED. PATIENT IS AWAKE PATIENT BS RECHECK BLOOD SUGAR AT 118 .
[2019-09-03 15:13] LABS: EOSINOPHILS % (MANUAL) 2 % (0-4); LYMPHOCYTES % (MANUAL) 11 % (16-48); MONOCYTES % (MANUAL) 8 % (0-11.0); NEUTROPHILS % (MANUAL) 79 (42-76)
[2019-09-03 16:00] VITALS: BP 113/100
[2019-09-03 16:02] LABS: ABG BASE EXCESS 0.5 mmol/L; ABG PCO2 29.7 mmHg (35.0-45.0); ABG PH 7.508 (7.350-7.450); AaDO2 417.3 mmHg; COHb 0.3 % (0.5-1.5); MetHb 0.6 % (0.0-1.5); O2Hb 98.1 % (94.0-97.0); SITE, ABG Right Radial; VENT MODE, BG NR 100%
--- NOTE | 2019-09-03 19:30 | NUR ---
RN CLOSING NOTES PATIENT ENDORSED TO PM SHIFT. PATIENT IS ASLEEP BUT EASILY AROUSED. PATIENT REFUSED EVENING MEDS. PATIENT IS A/O X3 PATIENT IS SATURATING WELL, PATIENT SHOWS NO SIGNS OF DISTRESS. PATIENT BED AT LOWEST POSITION . SAFETY MAINTAINED . CALL LIGHT WITH IN REACH.
[2019-09-03 20:00] VITALS: BP 108/56
--- NOTE | 2019-09-03 20:00 | NUR ---
GENERATOR OPERATOR NOTES RECEIVED PT ON BED. WITH SITTER. ON TELE MONITOR SR. A/O X 1. ON NRB 15L NO RESPIRATORY DISTRESS NOTED. IV ACCESS ON SIRIA MIDLINE WITH D10 @ 100CC/HR PATENT AND INTACT. HEAD OF BED ELEVATED. SIDE RAILS UP. CALL LIGHT WITHIN REACH. BED IN LOW AND LOCKED POSITION. WILL MONITOR PT CLOSELY.
--- NOTE | 2019-09-03 20:30 | NUR ---
RUG INSPECTOR HELPER NOTES PT SATURATING WELL, NO SIGN OF RESPIRATORY DISTRESS. TITRATED BACK TOP NASAL CANNULA 2LPM, SATURATING 100%.
--- NOTE | 2019-09-03 21:06 | NUR ---
LAMPS TESTER AND INSPECTOR NOTES INFORMED IMMIGRATION INSPECTOR DR REGARDING POTASSIUM OF 3.1 AND NA OF 119. PER IMMIGRATION INSPECTOR POTASSIUM 20 MEQ P.O
[2019-09-03] MEDS: POTASSIUM CHLORIDE 20 MEQ TAB.PRT.SR PO ONE ×2 (21:19→21:39)
--- NOTE | 2019-09-03 21:40 | NUR ---
BIOLOGICS SPECIALIST NOTES PT ASPIRATION RISK FOR KDUR. WILL FOLLOW UP MD.
[2019-09-03] MEDS: POTASSIUM CL. PREMIX PERIPHER. 50 ML IV SCH ×2 (21:50→22:40)
[2019-09-04] VITALS: BP 148/67
[2019-09-04] MEDS: BLOOD SUGAR DIAGNOSTIC 1 EACH STRIP IN SCH ×6 (00:03→22:21)
[2019-09-04] MEDS: IV 10% DEXTROSE 1,000 ML IV PRN ×2 (03:50→17:50)
[2019-09-04 04:00] VITALS: BP 113/48
[2019-09-04] MEDS: PIPERACILLIN /TAZOBACTAM 2.25 G in IV D5W 50 ML IV SCH ×3 (05:14→21:50)
--- NOTE | 2019-09-04 06:40 | NUR ---
PEDIATRIC SURGEON NOTES NO ACUTE CHANGES NOTED DURING THE SHIFT.PROVIDED COMFORT AND SAFETY. BLOOD SUGAR WNL. WILL ENDORSE TO THE AM NURSE FOR CONTINUITY OF CARE.
--- NOTE | 2019-09-04 07:20 | NUR ---
TELE/RN OPENING NOTES RECEIVED PATIENT IN BED SLEEPING COMFORTABLY. EASILY AROUSABLE. NO PAIN OR ACUTE DISTRESS AT THIS TIME. RESPIRATION EVEN AND UNLABORED. SKIN IS DRY WARM TO TOUCH. SITTER AT BEDSIDE AT ALL TIMES. PATIENT ON TELE MONITORING, SR AROUND 80S. NOTED WITH IV ACCESS ON SIRIA MIDLINE WITH D10 @ 100CC/HR PATENT AND INTACT. FLUSHING WELL. NO S/S OR INFECTION OR INFILTRATION. ALL NEEDS ANTICIPATED. CALL LIGHT WITHIN REACHED. CALL LIGHT WITHIN REACHED. BED LOCKED AND IN LOWEST POSITION. SAFETY MAINTAINED. PLAN OF CARE DISCUSSED. WILL CONTINUE TO MONITOR CLOSELY.
[2019-09-04] MEDS: PANTOPRAZOLE 40 MG TABLET.DR PO SCH (07:25)
[2019-09-04 07:46] LABS: CALCIUM, SERUM 7.7 mg/dL (8.5-10.1); POTASSIUM 3.6 mmol/L (3.5-5.1)
[2019-09-04 08:00] VITALS: BP 116/62
[2019-09-04 08:01] LABS: CREATININE 10.8 mg/dL (0.6-1.3)
[2019-09-04] MEDS: NEPRO VAN 237 ML CAN PO SCH ×3 (08:32→16:18)
[2019-09-04] MEDS: DEXTROSE 50%-WATER 50 ML DISP.SYRIN IV PRN ×2 (08:37→18:45)
[2019-09-04] MEDS: CLOPIDOGREL BISULFATE 75 MG TABLET PO SCH (08:43)
[2019-09-04] MEDS: ASPIRIN 81 MG TAB.CHEW PO SCH (08:43)
[2019-09-04] MEDS: CARVEDILOL 12.5 MG TABLET PO SCH ×2 (08:43→21:00)
[2019-09-04] MEDS: SEVELAMER CARBONATE 0.8 GM POWD.PACK PO SCH ×3 (08:43→17:05)
[2019-09-04] MEDS: GABAPENTIN 100 MG CAPSULE PO SCH ×3 (08:43→16:15)
[2019-09-04] MEDS: NIFEdipine XL (30MG) 30 MG TAB PO SCH ×2 (08:43→16:15)
[2019-09-04] MEDS: LACTOBACILLUS RHAMNOSUS GG 1 EACH CAP.SPRINK PO SCH ×2 (08:43→16:15)
[2019-09-04] MEDS: NYSTATIN (PYXIS) 500,000 UNIT/5 ML ORAL.SUSP PO SCH ×3 (08:43→16:15)
[2019-09-04] MEDS: HYDROGEL DRESSING 90 GM TUBE TP SCH (08:44)
[2019-09-04] MEDS: CADEXOMER IODINE 40 GM TUBE TP SCH (08:46)
[2019-09-04] MEDS: HEPARIN SODIUM, PORCINE 5000 UNITS/1 ML VIAL SQ SCH ×2 (08:48→21:54)
[2019-09-04 09:39] LABS: ABG BASE EXCESS -1.1 mmol/L; ABG OXYGEN SATURATION 96.3 % (92.0-98.5); ABG PCO2 33.1 mmHg (35.0-45.0); ABG PH 7.449 (7.350-7.450); ABG PO2 89.7 mmHg (75.0-100.0); AaDO2 70.9 mmHg; COHb 0.3 % (0.5-1.5); MetHb 0.7 % (0.0-1.5); O2Hb 95.3 % (94.0-97.0); SITE, ABG Right Femoral; VENT MODE, BG NASAL CANNULA
[2019-09-04 12:00] VITALS: BP 124/67
[2019-09-04 16:00] VITALS: BP 108/62
--- NOTE | 2019-09-04 16:20 | NUR ---
TELE/RN NOTES MEDICATION NIFEDIPINE NOT GIVEN DUE TO LOW BP OF 108/57. PATIENT CONTINUES TO REMAIN IN STABLE CONDITION THROUGHOUT THE SHIFT. WILL CONTINUE TO MONITOR CLOSELY.
--- NOTE | 2019-09-04 17:30 | NUR ---
TELE/RN NOTES INFORMED DR. ELISE REGARDING THE BLOOD SUGAR CONSISTENTLY GOING DOWN. D50 WAS ALSO GIVEN. DR. ELISE RESTARTED THE D10 @125CC/HR. PATIENT CONTINUE TO REMAIN IN STABLE CONDITION. WILL CONTINUE TO MONITOR CLOSELY.
--- NOTE | 2019-09-04 18:51 | NUR ---
TELE/RN CLOSING NOTES PATIENT CONTINUES TO REMAIN IN STABLE CONDITION THROUGHOUT THE SHIFT. PROVIDED COMFORT AND SAFETY. SITTER AT BEDSIDE AT ALL TIMES. PATIENT ON TELE MONITORING, SR AROUND 85S. NOTED WITH IV ACCESS ON SIRIA MIDLINE WITH D10 @ 125CC/HR PATENT AND INTACT. FLUSHING WELL. NO S/S OR INFECTION OR INFILTRATION. ALL NEEDS ANTICIPATED. CALL LIGHT WITHIN REACHED. CALL LIGHT WITHIN REACHED. BED LOCKED AND IN LOWEST POSITION. SAFETY MAINTAINED. PLAN OF CARE DISCUSSED. WILL CONTINUE TO MONITOR CLOSELY. ENDORSED TO PM NURSE FOR KAVITHA.
[2019-09-04 20:00] VITALS: BP 90/68
--- NOTE | 2019-09-04 22:00 | NUR ---
REFUSES TO BE TURNED, AFTER BEING TURNED GOES BACK ON TO HER LEFT SIDE AT ALL TIMES.
[2019-09-05] VITALS: BP_SYST 111; BP_DIAS 52; BP_DIAS 57
[2019-09-05] MEDS: BLOOD SUGAR DIAGNOSTIC 1 EACH STRIP IN SCH ×6 (01:34→21:35)
[2019-09-05] MEDS: IV 10% DEXTROSE 1,000 ML IV PRN ×2 (02:05→11:36)
[2019-09-05 04:00] VITALS: BP_SYST 111; BP_SYST 91; BP_DIAS 57; BP_DIAS 66
[2019-09-05] MEDS: PIPERACILLIN /TAZOBACTAM 2.25 G in IV D5W 50 ML IV SCH ×3 (04:54→20:37)
[2019-09-05] MEDS: HYDROCODONE/APAP 10/325MG 1 EA TABLET PO PRN (04:55)
--- NOTE | 2019-09-05 07:10 | NUR ---
CARPET MEASURER OPENING NOTE RECEIVED REPORT FROM [facility] SHIFT NURSE. PT AWAKE IN BED, ALERT AND ORIENTED X 1, ON 02 VIA NC 2L/MIN, SATURATING WELL, RESPIRATIONS EVEN AND UNLABORED, NO SIGNS OF RESPIRATORY DISTRESS NOTED. RIGHT UPPER ARM MIDLINE INTACT, PATENT. D10 INFUSING AT 125CC/HR. ON THERAPIST RESPIRATORY SINUS RHYTHM 81. BED IN LOW POSITION, LOCKED, CALL LIGHT WITHIN REACH.
[2019-09-05 07:12] LABS: CALCIUM, SERUM 7.6 mg/dL (8.5-10.1); POTASSIUM 3.1 mmol/L (3.5-5.1)
[2019-09-05] MEDS: PANTOPRAZOLE 40 MG TABLET.DR PO SCH (07:22)
[2019-09-05 07:31] LABS: CREATININE 10.3 mg/dL (0.6-1.3)
--- NOTE | 2019-09-05 07:31 | NUR ---
RECEIVED CALL FROM LAB WITH CRITICAL RESULT, CHLORIDE 76, SODIUM 111, CREATININE 10.3 SPOKE WITH HENRIQUE.
[2019-09-05] MEDS: SEVELAMER CARBONATE 0.8 GM POWD.PACK PO SCH ×3 (07:49→18:00)
[2019-09-05] MEDS: NEPRO VAN 237 ML CAN PO SCH ×3 (07:49→16:42)
[2019-09-05 08:00] VITALS: BP 109/81
--- NOTE | 2019-09-05 08:20 | NUR ---
CALLED [facility] TO [address] DR[address] LAGUERRE TO NOTIFY OF CRITICAL LAB RESULTS. WAITING FOR CALL BACK
--- NOTE | 2019-09-05 08:22 | NUR ---
SPOKE WITH DR. MONTERO, AWARE OF CRITICAL LAB RESULTS, NO NEW ORDERS AT THIS TIME
[2019-09-05] MEDS: ASPIRIN 81 MG TAB.CHEW PO SCH (08:55)
[2019-09-05] MEDS: CLOPIDOGREL BISULFATE 75 MG TABLET PO SCH (08:55)
[2019-09-05] MEDS: LACTOBACILLUS RHAMNOSUS GG 1 EACH CAP.SPRINK PO SCH ×2 (08:55→16:42)
[2019-09-05] MEDS: NIFEdipine XL (30MG) 30 MG TAB PO SCH ×2 (08:55→16:42)
[2019-09-05] MEDS: NYSTATIN (PYXIS) 500,000 UNIT/5 ML ORAL.SUSP PO SCH ×3 (08:55→16:42)
[2019-09-05] MEDS: GABAPENTIN 100 MG CAPSULE PO SCH ×3 (08:55→16:42)
[2019-09-05] MEDS: CADEXOMER IODINE 40 GM TUBE TP SCH (08:57)
[2019-09-05] MEDS: HYDROGEL DRESSING 90 GM TUBE TP SCH (08:57)
[2019-09-05] MEDS: HEPARIN SODIUM, PORCINE 5000 UNITS/1 ML VIAL SQ SCH ×2 (08:57→20:45)
[2019-09-05] MEDS: CARVEDILOL 12.5 MG TABLET PO SCH ×2 (08:58→20:44)
[2019-09-05] MEDS: *INSULIN REGULAR(HUMULIN R)HUM 100 UNIT/ML VIAL SQ PRN ×3 (09:09→21:41)
[2019-09-05 12:00] VITALS: BP 130/47
[2019-09-05 16:00] VITALS: BP 102/74
--- NOTE | 2019-09-05 18:10 | NUR ---
PT PROJECTILE VOMITED. BLOOD SUGAR CHECKED 329 MG/DL. DR. MONTERO NOTIFIED. D10 STOPPED. ADMINISTERED ZOFRAN 4MG IV PUSH.
--- NOTE | 2019-09-05 18:47 | NUR ---
RECEIVED NEW ORDERS FROM DR. MONTERO TO CHANGE IV FLUIDS TO 0.9% NORMAL SALINE AT 50CC/HR.
[2019-09-05] MEDS ORDERED: IV NS 0.9% 1,000 ML BAG IV SCH (19:00)
--- NOTE | 2019-09-05 19:05 | NUR ---
RN OPENING NOTES: PATIENT ASLEEP BUT EASILY AROUSABLE. NO RESPIRATORY DISTRESS. ON O2 AT 2LPM VIA NC. SITTER AT BEDSIDE. NO PAIN. SIRIA MIDLINE INTACT, PATENT, AND FLUSHING WELL. DIALYSIS NURSE AT BEDSIDE. ONGOING PERITONEAL DIALYSIS, TOLERATING WELL. SAFETY PRECAUTIONS IMPLEMENTED. BED LOCKED AND IN LOWEST POSITION. CALL LIGHT WITHIN REACH. WILL CONT. TO MONITOR.
--- NOTE | 2019-09-05 19:16 | NUR ---
CO FOUNDER AND CHAIRMAN closing NOTE PT AWAKE IN BED, ALERT AND ORIENTED X 1, ON 02 VIA NC 2L/MIN, SATURATING WELL, RESPIRATIONS EVEN AND UNLABORED, NO SIGNS OF RESPIRATORY DISTRESS NOTED. RIGHT UPPER ARM MIDLINE INTACT, PATENT WITH HEP LOCK. ON SALES ADVISORY MANAGER SINUS RHYTHM 85. BED IN LOW POSITION, LOCKED, CALL LIGHT WITHIN REACH. WILL ENDORSE TO NOC SHIFT NURSE.
[2019-09-05] MEDS ORDERED: IV NS 0.9% 1,000 ML IV PRN (19:30)
[2019-09-05 20:00] VITALS: BP 117/46
[2019-09-06] VITALS: BP 102/50
[2019-09-06] MEDS: BLOOD SUGAR DIAGNOSTIC 1 EACH STRIP IN SCH ×6 (01:05→21:18)
[2019-09-06 04:00] VITALS: BP 100/58
[2019-09-06] MEDS: PIPERACILLIN /TAZOBACTAM 2.25 G in IV D5W 50 ML IV SCH ×3 (04:55→21:18)
--- NOTE | 2019-09-06 05:15 | NUR ---
RN NOTE: CHECKED PATIENT'S BLOOD SUGAR SCHEDULED, BS = 48. PATIENT ASLEEP BUT EASILY AROUSABLE AND REMAINS VERBALLY RESPONSIVE. HOWEVER, OFFERED ORANGE JUICE BUT PATIENT REFUSED. RISKS AND BENEFITS EXPLAINED, STILL REFUSED. Addendum: 09/06/19 at 0646 by SAIMA ROMO RN AT 0520, GAVE D50 IV ORDERED. WILL RECHECK BS IN 30 MINS. AT 0550, RECHECKED PATIENT'S BS, 159. PATIENT AWAKE AND VERBALLY RESPONSIVE. WILL MONITOR FOR CHANGES. AT 0600, SPOKE WITH DR. AMEZQUITA AND MADE AWARE OF PATIENT'S CONDITION. NO NEW ORDERS AT THIS TIME. WILL CONT. TO MONITOR.
[2019-09-06] MEDS: DEXTROSE 50%-WATER 50 ML DISP.SYRIN IV PRN (05:20)
[2019-09-06 06:54] LABS: BASOPHILS # (AUTO) 0.1 /CMM (0.0-0.2); BASOPHILS % (AUTO) 0.6 % (0.0-2.0); EOSINOPHILS % (AUTO) 1.9 % (0.0-6.0); HEMATOCRIT 27 % (33-45); HEMOGLOBIN 9.4 g/dL (11.5-14.8); LYMPHOCYTES # (AUTO) 0.7 /CMM (0.8-4.8); LYMPHOCYTES % (AUTO) 5.6 % (20.0-44.0); MEAN CORPUSCULAR HGB CONC 35 g/dl (31.0-36.0); MEAN CORPUSCULAR VOLUME 88 fL (82-100); MONOCYTES # (AUTO) 0.8 /CMM (0.1-1.30); MONOCYTES % (AUTO) 6.6 % (2.0-12.0); NEUTROPHILS # (AUTO) 10.9 /CMM (1.8-8.9); NEUTROPHILS % (AUTO) 85.3 % (43.0-81.0); PLATELET COUNT (AUTO) 296 /CMM (150-450); RED BLOOD CELL COUNT(AUTO) 3.07 MIL/uL (4.0-5.2); WHITE BLOOD COUNT (AUTO) 12.8 K/uL (4.3-11.0)
--- NOTE | 2019-09-06 07:00 | NUR ---
RN CLOSING NOTES: PATIENT ASLEEP BUT EASILY AROUSABLE. NO RESPIRATORY DISTRESS. NO PAIN. SIRIA MIDLINE INTACT, PATENT, AND FLUSHING WELL. IN STABLE CONDITION AT THIS TIME. SAFETY PRECAUTIONS HAVE BEEN IMPLEMENTED. CALL LIGHT PLACED WITHIN REACH. ENDORSED TO AM SHIFT NURSE FOR CONTINUITY OF CARE.
--- NOTE | 2019-09-06 07:00 | NUR ---
CHEMICAL MIXER OPENING NOTES PATIENT IS ASLEEP BUT EASILY AROUSABLE, PATIENT IS A/0 X4 PATIENT IS ON TELE MONITOR WITH SR. PATIENT IS CURRENTLY ON 2L O2 SATURATING AT 99 %. PATIENT SHOWS NO SIGNS OF DISTRESS. NO PAIN PATIENT HAS SIRIA MIDLINE WITH NS @ 50 ML/HR. SIRIA MIDLINE PATIENT HAS SITTER AT BEDSIDE. BED AT LOWEST AND LOCKED POSITION, SAFETY MAINTAINED. CALL LIGHT WITH IN REACH. WILL CONT. PATIENT HAS SITTER AT BEDSIDE
[2019-09-06] MEDS: PANTOPRAZOLE 40 MG TABLET.DR PO SCH (07:30)
[2019-09-06 07:49] LABS: CALCIUM, SERUM 8.1 mg/dL (8.5-10.1); MAGNESIUM 1.7 mg/dL (1.8-2.4); PHOSPHORUS 6.2 mg/dL (2.5-4.9)
[2019-09-06 07:54] LABS: CREATININE 9.6 mg/dL (0.6-1.3); POTASSIUM 2.8 mmol/L (3.5-5.1)
[2019-09-06 08:00] VITALS: BP 112/57
[2019-09-06] MEDS: SEVELAMER CARBONATE 0.8 GM POWD.PACK PO SCH ×3 (08:49→17:13)
[2019-09-06] MEDS: CADEXOMER IODINE 40 GM TUBE TP SCH (09:00)
[2019-09-06] MEDS: LACTOBACILLUS RHAMNOSUS GG 1 EACH CAP.SPRINK PO SCH ×2 (09:00→16:43)
[2019-09-06] MEDS: NIFEdipine XL (30MG) 30 MG TAB PO SCH ×2 (09:00→17:00)
[2019-09-06] MEDS: HEPARIN SODIUM, PORCINE 5000 UNITS/1 ML VIAL SQ SCH ×2 (09:00→21:00)
[2019-09-06] MEDS: HYDROGEL DRESSING 90 GM TUBE TP SCH (09:00)
[2019-09-06] MEDS: CLOPIDOGREL BISULFATE 75 MG TABLET PO SCH (09:00)
[2019-09-06] MEDS: GABAPENTIN 100 MG CAPSULE PO SCH ×3 (09:00→16:43)
[2019-09-06] MEDS: NYSTATIN (PYXIS) 500,000 UNIT/5 ML ORAL.SUSP PO SCH ×5 (09:00→17:00)
[2019-09-06] MEDS: ASPIRIN 81 MG TAB.CHEW PO SCH (09:00)
[2019-09-06] MEDS: CARVEDILOL 12.5 MG TABLET PO SCH ×2 (09:00→21:00)
[2019-09-06] MEDS: NEPRO VAN 237 ML CAN PO SCH ×3 (09:12→17:25)
--- NOTE | 2019-09-06 09:20 | NUR ---
BORING MACHINE OPERATOR HORIZONTAL NOTES BS FOR 167 : PATIENT HAD EPISODE OF HYPOGLYCEMIA EARLIER IN THE MORNING . HOLDING R INSULIN MONITORING PATIENT.
--- NOTE | 2019-09-06 09:30 | NUR ---
SUPERINTENDENT AMMUNITION STORAGE NOTES PATIENT REFUSED MORNING MEDICATIONS, OFFERED 3X . EXPLAINED RISK AND BENEFITS TO PATIENT
[2019-09-06 12:00] VITALS: BP 111/51
[2019-09-06] MEDS ORDERED: POTASSIUM CHLORIDE 20 MEQ TAB.PRT.SR PO ONE (12:30)
[2019-09-06] MEDS: INSULIN REGULAR, HUMAN 100 UNIT/ML 3 ML VIAL SQ PRN (13:07)
--- NOTE | 2019-09-06 16:00 | NUR ---
WRAPPER OFF NOTES PATIENT REFUSED VITALS ONLY BP TAKEN 114/55
--- NOTE | 2019-09-06 19:30 | NUR ---
INTERNATIONAL ACCOUNTING MANAGER CLOSING NOTES PATIENT ENDORSED TO PM SHIFT. PATIENT IS ASLEEP, BUT EASILY AROUSED DURING THE DAY PATIENT WAS ALERT AND ORIENTED X2 . PATIENT STATED " OH I AM AT THE HOSPITAL. THAT PATIENT IS ON OXYGEN 2L AND TOLERATING WELL . PATIENT IS ON MONITOR. PATIENT SHOWS NO SIGNS OF DISTRESS. PATIENT IS STILL CURRENTLY RECEIVING PD . PATIENT BED LOWEST AND LOCKED POSITION, SAFETY MAINTAINED, CALL LIGHT WITH IN REACH.
--- NOTE | 2019-09-06 19:35 | NUR ---
RECONSTRUCTIVE SURGEON NOTE: PATIENT RESTING IN BED, NO ACUTE DISTRESS NOTED. BREATHING EVEN AND UNLABORED, NO SOB NOTED. MIDLINE TO SIRIA IN PLACE. PATIENT RECEIVING PERITONEAL HD AT THIS TIME. BED LOCKED AND IN LOWEST POSITION, CALL LIGHT IN REACH, WILL CONTINUE TO MONITOR.
[2019-09-06 20:40] VITALS: BP 105/68
--- NOTE | 2019-09-06 21:45 | NUR ---
CUPOLA LINER HELPER NOTE: PATIENT BLOOD SUGAR LEVEL 128MG/DL, NO INSULIN NEEDED PER SLIDING SCALE, NO S/S OF HYPER/HYPOGLYCEMIA NOTED. WILL CONTINUE TO MONITOR.
[2019-09-07 00:40] VITALS: BP 125/60
[2019-09-07] MEDS: BLOOD SUGAR DIAGNOSTIC 1 EACH STRIP IN SCH ×6 (01:00→22:00)
--- NOTE | 2019-09-07 01:30 | NUR ---
CHURN DRILLER HELPER NOTE: PATIENT REFUSED BLOOD SUGAR CHECK, EXPLAINED RISK AND BENEFITS AND PATIENT CONTINUES TO REFUSE BLOOD SUGAR CHECK. NO S/S OF HYPER/HYPOGLYCEMIA NOTED. WILL CONTINUE TO MONITOR.
[2019-09-07 04:30] VITALS: BP 99/65
[2019-09-07] MEDS: PIPERACILLIN /TAZOBACTAM 2.25 G in IV D5W 50 ML IV SCH (05:53)
--- NOTE | 2019-09-07 06:45 | NUR ---
RAT BREEDER NOTE: PATIENT RESTING IN BED, NO ACUTE DISTRESS NOTED. BREATHING EVEN AND UNLABORED, NO SOB NOTED. MIDLINE TO SIRIA IN PLACE. PATIENT BLOOD SUGAR LEVEL 116MG/DL, NO INSULIN NEEDED PER SLIDING SCALE. NO S/S HYPER/HYPOGLYCEMIA NOTED. PERITONEAL HD SITE TO ABDOMEN. BED LOCKED AND IN LOWEST POSITION, CALL LIGHT IN REACH, WILL ENDORSE TO DAY NURSE TO CONTINUE WITH PLAN OF CARE.
[2019-09-07 06:47] LABS: BASOPHILS # (AUTO) 0.1 /CMM (0.0-0.2); BASOPHILS % (AUTO) 0.7 % (0.0-2.0); EOSINOPHILS % (AUTO) 2.5 % (0.0-6.0); HEMATOCRIT 30 % (33-45); HEMOGLOBIN 10.1 g/dL (11.5-14.8); LYMPHOCYTES # (AUTO) 0.9 /CMM (0.8-4.8); LYMPHOCYTES % (AUTO) 5.5 % (20.0-44.0); MEAN CORPUSCULAR HGB CONC 34 g/dl (31.0-36.0); MEAN CORPUSCULAR VOLUME 89 fL (82-100); MONOCYTES # (AUTO) 1.1 /CMM (0.1-1.30); MONOCYTES % (AUTO) 6.5 % (2.0-12.0); NEUTROPHILS # (AUTO) 14.6 /CMM (1.8-8.9); NEUTROPHILS % (AUTO) 84.8 % (43.0-81.0); PLATELET COUNT (AUTO) 399 /CMM (150-450); RED BLOOD CELL COUNT(AUTO) 3.32 MIL/uL (4.0-5.2); WHITE BLOOD COUNT (AUTO) 17.2 K/uL (4.3-11.0)
--- NOTE | 2019-09-07 07:00 | NUR ---
WHITEWATER RAFTING GUIDE NOTES PATIENT RECEIVED BY PM SHIFT. PATIENT IS ASLEEP BUT EASILY AROUSED. SHOWS NO SIGNS OF ACUTE DISTRESS . BREATHING EVEN AND UNLABORED. PATIENT SHOWS NO SIGNS OF DISTRESS. MID LINE IN PLACE, CLEAN, INTACT, NO SIGNS OF INFILTRATION AND PATENT . BED LOCKED AND IN LOWEST POSITION. SAFETY MAINTAINED. CALL LIGHT WITH IN REACH, WILL CONTINUE TO MONITOR
[2019-09-07 07:15] LABS: CALCIUM, SERUM 8.2 mg/dL (8.5-10.1); MAGNESIUM 1.6 mg/dL (1.8-2.4); PHOSPHORUS 6.3 mg/dL (2.5-4.9); POTASSIUM 3.2 mmol/L (3.5-5.1)
[2019-09-07 07:22] LABS: CREATININE 9.5 mg/dL (0.6-1.3)
[2019-09-07 08:00] VITALS: BP 134/40
[2019-09-07] MEDS: HEPARIN SODIUM, PORCINE 5000 UNITS/1 ML VIAL SQ SCH ×2 (09:00→22:02)
[2019-09-07] MEDS: NYSTATIN (PYXIS) 500,000 UNIT/5 ML ORAL.SUSP PO SCH ×4 (09:00→17:06)
[2019-09-07] MEDS: CARVEDILOL 12.5 MG TABLET PO SCH ×3 (09:00→21:59)
[2019-09-07] MEDS: NIFEdipine XL (30MG) 30 MG TAB PO SCH ×2 (09:00→17:00)
--- NOTE | 2019-09-07 09:30 | NUR ---
SWITCHBOARD TROUBLESHOOTER NOTES PATIENT HOSPITALIST, INFORMED ABOUT CRITICAL LABS SODIUM 120 , POTASSIUM 3.2
[2019-09-07] MEDS: SEVELAMER CARBONATE 0.8 GM POWD.PACK PO SCH ×3 (09:44→17:06)
[2019-09-07] MEDS: CLOPIDOGREL BISULFATE 75 MG TABLET PO SCH (09:44)
[2019-09-07] MEDS: GABAPENTIN 100 MG CAPSULE PO SCH ×3 (09:44→17:07)
[2019-09-07] MEDS: LACTOBACILLUS RHAMNOSUS GG 1 EACH CAP.SPRINK PO SCH ×2 (09:45→17:07)
[2019-09-07] MEDS: ASPIRIN 81 MG TAB.CHEW PO SCH (09:45)
[2019-09-07] MEDS: PANTOPRAZOLE 40 MG TABLET.DR PO SCH (09:45)
[2019-09-07] MEDS: HYDROGEL DRESSING 90 GM TUBE TP SCH (09:47)
[2019-09-07] MEDS: CADEXOMER IODINE 40 GM TUBE TP SCH (09:47)
[2019-09-07] MEDS: NEPRO VAN 237 ML CAN PO SCH ×3 (10:07→17:08)
[2019-09-07] MEDS ORDERED: MAGNESIUM OXIDE 400 MG TABLET PO ONE (12:30)
[2019-09-07] MEDS: *INSULIN REGULAR(HUMULIN R)HUM 100 UNIT/ML VIAL SQ PRN (14:08)
--- NOTE | 2019-09-07 15:00 | NUR ---
PLUMBING DRAFTER NOTES PATIENT REFUSED BLOOD SUGAR CHECK
--- NOTE | 2019-09-07 15:00 | NUR ---
PLASTIC INJECTION MOLD MAKER NOTES PATIENT REFUSED TO CHANGED DRESSING ON L HAND ' STATED IT HURTS TO MUCH STOP TOUCHING IT
--- NOTE | 2019-09-07 17:30 | NUR ---
GEAR SHAPER NOTES PATIENT BLOOD SUGAR CURRENTLY AT 60 PATIENT IS AWAKE AND EASILY AROUSED . PATIENT WAS GIVEN DEXTROSE PER PROTOCOL WILL RE CHECK BLOOD SUGAR .
[2019-09-07] MEDS: DEXTROSE 50%-WATER 50 ML DISP.SYRIN IV PRN (17:32)
--- NOTE | 2019-09-07 18:31 | NUR ---
PATROL DRIVER NOTES PATIENT IS AWAKE AND EASILY AROUSABLE. PATIENT REFUSED BLOOD SUGAR CHECK .
--- NOTE | 2019-09-07 19:30 | NUR ---
COLLAR STAY FUSER TENDER NOTES CLOSING PATIENT ENSORSED TO PM SHIFT PATIENT IS A/OX2. PATIENT IS AWAKE PATIENT SHOWS NO SIGNS OF DISTRESS, NO PAIN , NO SOB, SITTER AT BED SIDE. BED LOW AND LOCK POSITION. CALL LIGHT WITH IN REACH . SAFETY MAINTAINED.
--- NOTE | 2019-09-07 19:40 | NUR ---
DIRECTOR OF STRATEGIC SALES OPENING NOTES RECEIVED PATIENT A/OX2. PATIENT IS IN NO SIGN OF ANY DISTRESS. HAS ON 3L OF O2 WITH OXYGEN SAT AT 94%. PATIENT IS TELE PATIENT BUT REFUSES TO ADJUST THE LEADS. WILL FOLLOW UP. PATIENT HAS A SIRIA MIDLINE WITH NO SIGN OF INFILTRATION. FLUSHING AND PATENT. PATIENT IS BED REST WITH DIAPER ON. HAS MULTIPLE WOUNDS WILL APPLY WOUND CARE ORDERED. SITTER IS AT BEDSIDE. ALL SAFETY PRECAUTIONS HAVE BEEN APPLIED BED LOCKED IN LOW POSITION, CALL LIGHT WITHIN REACH, AND BED ALARM ON CONTINUE TO MONITOR.
[2019-09-07 20:00] VITALS: BP 118/73
[2019-09-08] VITALS: BP 106/69
[2019-09-08] MEDS: BLOOD SUGAR DIAGNOSTIC 1 EACH STRIP IN SCH ×6 (01:52→20:11)
[2019-09-08 04:00] VITALS: BP 97/78
--- NOTE | 2019-09-08 07:03 | NUR ---
ADMINISTRATIVE PERSONAL ASSISTANT CLOSING PATIENT IN BED WITH NO DISTRESS NO SIGNS OF ANY SOB. SITTER AT BEDSIDE. AND ALL SAFETY PRECAUTIONS APPLIED. ENDORSED PATIENT TO MORNING SHIFT NURSE TO [facility]
--- NOTE | 2019-09-08 07:20 | NUR ---
TELE/RN OPENING NOTES RECEIVED PATIENT IN BED AWAKE, ALERT AND ABLE TO MAKE NEEDS KNOWN. NO PAIN OR ACUTE DISTRESS AT THIS TIME. RESPIRATION EVEN AND UNLABORED. SKIN IS DRY WARM TO TOUCH. PATIENT ON 3L OF O2 WITH OXYGEN SAT AT 98%. NOTED WITH SIRIA MIDLINE INTACT AND PATENT. NO S/S OF INFILTRATION OR INFECTION. FLUSHING WELL. SITTER IS AT BEDSIDE AT ALL TIMES. ALL NEEDS ANTICIPATED. CALL LIGHT WITHIN REACHED. BED LOCKED AND IN LOWEST POSITION. SAFETY MAINTAINED. WILL CONTINUE TO MONITOR CLOSELY.
[2019-09-08 07:45] LABS: BASOPHILS # (AUTO) 0.1 /CMM (0.0-0.2); BASOPHILS % (AUTO) 0.6 % (0.0-2.0); EOSINOPHILS % (AUTO) 2.2 % (0.0-6.0); HEMATOCRIT 27 % (33-45); HEMOGLOBIN 8.8 g/dL (11.5-14.8); LYMPHOCYTES # (AUTO) 1.3 /CMM (0.8-4.8); LYMPHOCYTES % (AUTO) 10.3 % (20.0-44.0); MEAN CORPUSCULAR HGB CONC 33 g/dl (31.0-36.0); MEAN CORPUSCULAR VOLUME 92 fL (82-100); NEUTROPHILS # (AUTO) 9.6 /CMM (1.8-8.9); NEUTROPHILS % (AUTO) 78.9 % (43.0-81.0); PLATELET COUNT (AUTO) 352 /CMM (150-450); RED BLOOD CELL COUNT(AUTO) 2.93 MIL/uL (4.0-5.2); WHITE BLOOD COUNT (AUTO) 12.2 K/uL (4.3-11.0)
[2019-09-08 07:52] LABS: CALCIUM, SERUM 7.9 mg/dL (8.5-10.1); MAGNESIUM 1.8 mg/dL (1.8-2.4); PHOSPHORUS 5.9 mg/dL (2.5-4.9); POTASSIUM 3.1 mmol/L (3.5-5.1)
[2019-09-08] MEDS: PANTOPRAZOLE 40 MG TABLET.DR PO SCH (07:56)
[2019-09-08 07:58] LABS: CREATININE 9.3 mg/dL (0.6-1.3)
[2019-09-08] MEDS: NEPRO VAN 237 ML CAN PO SCH ×3 (07:58→16:13)
[2019-09-08 08:00] VITALS: BP_SYST 105; BP_SYST 108; BP_DIAS 35; BP_DIAS 65
[2019-09-08] MEDS: CLOPIDOGREL BISULFATE 75 MG TABLET PO SCH (08:15)
[2019-09-08] MEDS: SEVELAMER CARBONATE 0.8 GM POWD.PACK PO SCH ×3 (08:15→17:11)
[2019-09-08] MEDS: ASPIRIN 81 MG TAB.CHEW PO SCH (08:15)
[2019-09-08] MEDS: GABAPENTIN 100 MG CAPSULE PO SCH ×3 (08:15→16:13)
[2019-09-08] MEDS: LACTOBACILLUS RHAMNOSUS GG 1 EACH CAP.SPRINK PO SCH ×2 (08:15→16:13)
[2019-09-08] MEDS: NYSTATIN (PYXIS) 500,000 UNIT/5 ML ORAL.SUSP PO SCH ×3 (08:15→16:13)
[2019-09-08] MEDS: HYDROGEL DRESSING 90 GM TUBE TP SCH (08:17)
[2019-09-08] MEDS: HEPARIN SODIUM, PORCINE 5000 UNITS/1 ML VIAL SQ SCH ×2 (08:18→20:15)
[2019-09-08] MEDS: CADEXOMER IODINE 40 GM TUBE TP SCH (08:19)
[2019-09-08] MEDS: NIFEdipine XL (30MG) 30 MG TAB PO SCH ×2 (08:25→16:14)
[2019-09-08] MEDS: CARVEDILOL 12.5 MG TABLET PO SCH ×2 (08:25→20:12)
--- NOTE | 2019-09-08 08:26 | NUR ---
TELE/RN NOTES MEDICATION COREG AND PROCARDIA NOT GIVEN DUE TO LOW BP OF 108/63. PATIENT CONTINUES TO REMAIN IN STABLE CONDITION. WILL CONTINUE TO MONITOR CLOSELY.
[2019-09-08] MEDS ORDERED: POTASSIUM CHLORIDE 20 MEQ TAB.PRT.SR PO ONE ×2 (09:30→14:00)
[2019-09-08] MEDS: HYDROCODONE/APAP 10/325MG 1 EA TABLET PO PRN ×2 (11:17→20:16)
[2019-09-08 12:00] VITALS: BP_SYST 106; BP_DIAS 64; BP_DIAS 76
[2019-09-08] MEDS: INSULIN REGULAR, HUMAN 100 UNIT/ML 3 ML VIAL SQ PRN (12:14)
[2019-09-08 16:00] VITALS: BP_SYST 121; BP_DIAS 54; BP_DIAS 68
--- NOTE | 2019-09-08 18:56 | NUR ---
TELE/RN CLOSING NOTES PATIENT CONTINUES TO REMAIN IN STABLE CONDITION THROUGHOUT THE SHIFT. PROVIDED COMFORT AND SAFETY. PATIENT ON 3L OF O2 WITH OXYGEN SAT AT 98%. NOTED WITH SIRIA MIDLINE INTACT AND PATENT. NO S/S OF INFILTRATION OR INFECTION. FLUSHING WELL. PATIENT ABLE TO TOLERATE MEALS AND MEDS WELL. SITTER IS AT BEDSIDE AT ALL TIMES. ALL NEEDS ANTICIPATED. CALL LIGHT WITHIN REACHED. BED LOCKED AND IN LOWEST POSITION. SAFETY MAINTAINED. WILL CONTINUE TO MONITOR CLOSELY. ENDORSED TO PM NURSE FOR KAVITHA.
[2019-09-08 20:00] VITALS: BP 105/42
[2019-09-08] MEDS: ZOLPIDEM TARTRATE 5 MG TABLET PO PRN (20:16)
[2019-09-09 00:01] VITALS: BP 115/53
[2019-09-09] MEDS: BLOOD SUGAR DIAGNOSTIC 1 EACH STRIP IN SCH ×6 (00:41→21:00)
[2019-09-09] MEDS: HYDROCODONE/APAP 10/325MG 1 EA TABLET PO PRN (00:43)
[2019-09-09 04:06] VITALS: BP 111/44
[2019-09-09] MEDS: HYDROMORPHONE INJ 2 MG/ML DISP.SYRIN IV PRN (04:17)
[2019-09-09 06:39] LABS: BASOPHILS # (AUTO) 0.1 /CMM (0.0-0.2); BASOPHILS % (AUTO) 0.7 % (0.0-2.0); HEMATOCRIT 25 % (33-45); HEMOGLOBIN 8.2 g/dL (11.5-14.8); LYMPHOCYTES # (AUTO) 1.1 /CMM (0.8-4.8); LYMPHOCYTES % (AUTO) 8.7 % (20.0-44.0); MEAN CORPUSCULAR HGB CONC 34 g/dl (31.0-36.0); MEAN CORPUSCULAR VOLUME 89 fL (82-100); MONOCYTES # (AUTO) 0.9 /CMM (0.1-1.30); MONOCYTES % (AUTO) 6.7 % (2.0-12.0); NEUTROPHILS # (AUTO) 10.6 /CMM (1.8-8.9); NEUTROPHILS % (AUTO) 82.9 % (43.0-81.0); PLATELET COUNT (AUTO) 394 /CMM (150-450); RED BLOOD CELL COUNT(AUTO) 2.75 MIL/uL (4.0-5.2); WHITE BLOOD COUNT (AUTO) 12.8 K/uL (4.3-11.0)
[2019-09-09 06:40] LABS: CALCIUM, SERUM 7.7 mg/dL (8.5-10.1); MAGNESIUM 1.8 mg/dL (1.8-2.4); PHOSPHORUS 5.3 mg/dL (2.5-4.9); POTASSIUM 3.7 mmol/L (3.5-5.1)
--- NOTE | 2019-09-09 07:00 | NUR ---
MS RN OPENING NOTE: RECEIVED PATIENT IN BED. AWAKE, ALERT AND ORIENTED X2. ON CONT. O2 VIA NC TOLERATING WELL. SATURATION @ 95%. NO SOB, NOT IN DISTRESS. CURRENTLY UNDERGOING PERITONEAL DIALYSIS, SITE IS PATENT AND DRESSING IS CLEAN, DRY AND SECURE. IV SITE ON SIRIA MIDLINE PATENT, DRESSING IS CLEAN, DRY AND SECURE. NO PAIN NOTED OR REPORTED AT THE MOMENT. ON CARDIAC MONITORING WITH SINUS RHYTHM. CALL LIGHT IN REACH, SIDE RAILS UP, BED LOCKED, LOW AND AT SEMI-ANGELES'S POSITION. WILL CONTINUE TO MONITOR. Addendum: 09/09/19 at 0804 by ROSA BUI RN JESSIKA WASSERMAN NOTE:
[2019-09-09] MEDS: PANTOPRAZOLE 40 MG TABLET.DR PO SCH (07:44)
[2019-09-09] MEDS: SEVELAMER CARBONATE 0.8 GM POWD.PACK PO SCH ×3 (07:45→18:00)
[2019-09-09 08:00] VITALS: BP_SYST 105; BP_SYST 97; BP_DIAS 29; BP_DIAS 48
[2019-09-09] MEDS: NEPRO VAN 237 ML CAN PO SCH ×3 (08:05→18:00)
[2019-09-09] MEDS: NIFEdipine XL (30MG) 30 MG TAB PO SCH ×2 (09:00→18:00)
[2019-09-09] MEDS: CARVEDILOL 12.5 MG TABLET PO SCH ×2 (09:00→21:00)
--- NOTE | 2019-09-09 09:00 | NUR ---
CONCRETE SPREADER NOTE: PATIENT REFUSED INSULIN ADMINISTRATION FOR CURRENT BLOOD SUGAR LEVEL.
[2019-09-09] MEDS: ASPIRIN 81 MG TAB.CHEW PO SCH (09:20)
[2019-09-09] MEDS: CLOPIDOGREL BISULFATE 75 MG TABLET PO SCH (09:21)
[2019-09-09] MEDS: NYSTATIN (PYXIS) 500,000 UNIT/5 ML ORAL.SUSP PO SCH ×3 (09:21→18:00)
[2019-09-09] MEDS: LACTOBACILLUS RHAMNOSUS GG 1 EACH CAP.SPRINK PO SCH ×2 (09:21→18:00)
[2019-09-09] MEDS: GABAPENTIN 100 MG CAPSULE PO SCH ×3 (09:22→18:00)
[2019-09-09] MEDS: HYDROGEL DRESSING 90 GM TUBE TP SCH (09:22)
[2019-09-09] MEDS: CADEXOMER IODINE 40 GM TUBE TP SCH (09:23)
[2019-09-09 12:00] VITALS: BP_SYST 98; BP_DIAS 23; BP_DIAS 43
[2019-09-09 16:00] VITALS: BP_SYST 88; BP_SYST 98; BP_DIAS 36; BP_DIAS 56
--- NOTE | 2019-09-09 19:00 | NUR ---
MATHEMATICAL ENGINEER CLOSING NOTE: PATIENT IN BED AND ASLEEP. ON CONT. O2 VIA NC TOLERATING WELL. WITH PERITONEAL DIALYSIS, SITE IS PATENT AND DRESSING IS CLEAN, DRY AND SECURE. IV SITE ON SIRIA MIDLINE PATENT, DRESSING IS CLEAN, DRY AND SECURE. NO PAIN NOTED OR REPORTED AT THE MOMENT. ON CARDIAC MONITORING WITH SINUS RHYTHM. PATIENT WITH NO APPETITE FOR FOOD ON SHIFT. REFUSED INSULIN COVERAGE ON SHIFT AND REFUSED MEDICATIONS DUE AT LUNCH AND DINNER TIME. CALL LIGHT IN REACH, SIDE RAILS UP, BED LOCKED, LOW AND AT SEMI-ANGELES'S POSITION. WILL ENDORSE TO ONCOMING NURSE FOR KAVITHA.
--- NOTE | 2019-09-09 19:10 | NUR ---
PROGRAM OFFICER NOTE PATIENT REPORT GIVEN BEDSIDE. PATIENT LYING IN BED A/O X 3 LEFT LATERAL. PATIENT CURRENTLY HAS DIALYSATE INDWELLING FOR PD. TOLERATING WELL. NO S.S OF INFECTION. TOLERATING TREATMENT. PATIENT DENIES SOB/ CHEST PAIN/ DISCOMFORT. PATIENT CURRENTLY SR ON THE MONITOR. PATIENT GOALS AND POC DISCUSSED WITH PATIENT. PATIENT PASSIVE AND RESISTANT TO CONVERSATION. RN WILL CONTINUE TO MONITOR FOR CHANGES. SAFETY PRECAUTIONS IN PLACE, SIDE RAILS UP X 3. CALL LIGHT WITHIN REACH.
[2019-09-09 20:00] VITALS: BP 95/53
--- NOTE | 2019-09-09 21:30 | NUR ---
DOG DAY CARE ATTENDANT NOTE PATIENT REFUSED ACCUCHECK AT 2100. PATIENT UPSET SHE KEEPS GETTING WOKEN UP AT NIGHT. RN EXPLAINED IMPORTANCE OF GOOD BLOOD SUGAR CONTROL RN WILL CONTINUE TO MONITOR FOR S/S OF HYPOGLYCEMIA AND HYPERGLYCEMIA.
[2019-09-10] VITALS: BP 111/77
--- NOTE | 2019-09-10 01:30 | NUR ---
GROUND SERVICE EQUIPMENT MECHANIC NOTE PATIENT REFUSED COVERAGE FOR 1 AM ACCUCHECK FOR BS OF 157. WILL RECHECK BLOOD SUAGR AGAIN AT 0500. EDUCATED PATIENT AGAIN ON BLOOD SUGAR CONTROL
[2019-09-10] MEDS: BLOOD SUGAR DIAGNOSTIC 1 EACH STRIP IN SCH ×6 (01:45→21:22)
[2019-09-10] MEDS: HYDROMORPHONE INJ 2 MG/ML DISP.SYRIN IV PRN (03:39)
--- NOTE | 2019-09-10 03:46 | NUR ---
CHROME TANNING DRUM OPERATOR NOTE PATIENT REFUSED BED BATH, OPTING FOR A WET WASH CLOTH TO WIPE HERSELF. SHE ALSO REFUSED, LINENS AND GOWNS TO BE CHANGE. PATIENT REFUSED PHOTO FOR LEFT GANGRENOUS HAND. STATES, " CAN WE DO THIS ONE LATER." HOWEVER OTHER PHOTOS ABLE TO BE TAKEN AND WOUND CARE GIVEN TO THE SACRAL AREA.
[2019-09-10 04:00] VITALS: BP 99/52
--- NOTE | 2019-09-10 06:15 | NUR ---
IMMIGRATION OFFICER NOTE PATIENT REFUSES COVERAGE OF INSULIN FOR BS OFF 134 PATIENT EDUCATED MD AWARE OF PATIENT NON ADHERENCE
[2019-09-10 06:46] LABS: BASOPHILS # (AUTO) 0.1 /CMM (0.0-0.2); BASOPHILS % (AUTO) 1.1 % (0.0-2.0); EOSINOPHILS % (AUTO) 2.9 % (0.0-6.0); HEMATOCRIT 23 % (33-45); LYMPHOCYTES # (AUTO) 1.2 /CMM (0.8-4.8); LYMPHOCYTES % (AUTO) 11.3 % (20.0-44.0); MEAN CORPUSCULAR HGB CONC 35 g/dl (31.0-36.0); MEAN CORPUSCULAR VOLUME 91 fL (82-100); MONOCYTES # (AUTO) 0.9 /CMM (0.1-1.30); MONOCYTES % (AUTO) 7.9 % (2.0-12.0); NEUTROPHILS # (AUTO) 8.4 /CMM (1.8-8.9); NEUTROPHILS % (AUTO) 76.8 % (43.0-81.0); PLATELET COUNT (AUTO) 418 /CMM (150-450); RED BLOOD CELL COUNT(AUTO) 2.57 MIL/uL (4.0-5.2); WHITE BLOOD COUNT (AUTO) 10.9 K/uL (4.3-11.0)
[2019-09-10 07:02] LABS: POTASSIUM 3.4 mmol/L (3.5-5.1)
[2019-09-10 07:03] LABS: CREATININE 10.4 mg/dL (0.6-1.3)
[2019-09-10 08:00] VITALS: BP 111/62
[2019-09-10] MEDS ORDERED: POTASSIUM CHLORIDE 20 MEQ TAB.PRT.SR PO ONE (08:00)
[2019-09-10] MEDS: SEVELAMER CARBONATE 0.8 GM POWD.PACK PO SCH ×3 (09:40→17:13)
[2019-09-10] MEDS: PANTOPRAZOLE 40 MG TABLET.DR PO SCH (09:40)
[2019-09-10] MEDS: NIFEdipine XL (30MG) 30 MG TAB PO SCH ×2 (09:41→17:14)
[2019-09-10] MEDS: GABAPENTIN 100 MG CAPSULE PO SCH ×3 (09:41→17:14)
[2019-09-10] MEDS: ASPIRIN 81 MG TAB.CHEW PO SCH (09:42)
[2019-09-10] MEDS: LACTOBACILLUS RHAMNOSUS GG 1 EACH CAP.SPRINK PO SCH ×2 (09:42→17:13)
[2019-09-10] MEDS: CLOPIDOGREL BISULFATE 75 MG TABLET PO SCH (09:42)
[2019-09-10] MEDS: CARVEDILOL 12.5 MG TABLET PO SCH ×2 (09:42→21:23)
[2019-09-10] MEDS: NYSTATIN (PYXIS) 500,000 UNIT/5 ML ORAL.SUSP PO SCH ×3 (09:43→17:14)
[2019-09-10] MEDS: NEPRO VAN 237 ML CAN PO SCH ×3 (09:43→18:12)
[2019-09-10] MEDS: HYDROGEL DRESSING 90 GM TUBE TP SCH (09:44)
[2019-09-10] MEDS: CADEXOMER IODINE 40 GM TUBE TP SCH (09:45)
[2019-09-10] MEDS: INSULIN REGULAR, HUMAN 100 UNIT/ML 3 ML VIAL SQ PRN (10:29)
[2019-09-10 12:00] VITALS: BP 120/72
--- NOTE | 2019-09-10 13:17 | NUR ---
PATIENT ATE 25% BREAKFAST AND REFUSED TO EAT LUNCH. BS 61. APPLE JUICE GIVEN. PATIENT TOOK HALF NEPHRO BUT REFUSED TO TAKE ALL. WILL RECHECK BG IN 30 MIN. CHARGE NURSE MADE AWARE.
--- NOTE | 2019-09-10 13:58 | NUR ---
WOUND TX DONE. SINCE PATIENT HAD REFUSED LEFT HAND WOUND TX LAST NIGHT, NURSE WAS NOT ABLE TO TAKE PICTURE. PHOTO TAKEN TODAY AND CHARTED.
--- NOTE | 2019-09-10 14:26 | NUR ---
BS 60. 2 APPLE JUICE GIVEN. WILL RECHECK BS. CHARGE NURSE MADE AWARE.
--- NOTE | 2019-09-10 14:39 | NUR ---
POTASSIUM LEVEL 3.4. DR. BUCIO MADE AWARE.
[2019-09-10] MEDS: DEXTROSE 50%-WATER 50 ML DISP.SYRIN IV PRN (14:48)
--- NOTE | 2019-09-10 14:49 | NUR ---
dextrose 50% given.
--- NOTE | 2019-09-10 14:56 | NUR ---
DR BUCIO ORDERED K DUR 20 MEQ X 1 THIS MORNING. ACCORDING TO HIM NO MORE POTASSIUM IS NEEDED.
[2019-09-10] MEDS ORDERED: SILVER NITRATE APPLICATOR 1 EA BOX TP ONE (15:30)
[2019-09-10] MEDS ORDERED: LIDOCAINE 1%-EPI 1:100,000 20 ML VIAL TP ONE (15:30)
--- NOTE | 2019-09-10 15:57 | NUR ---
PATIENT REFUSED SILVER NITRATE AND XYLOCAINE AND SAID: "I DON'T WANT TO BE TOUCHED AT ALL, LEAVE ME ALONE.'"
[2019-09-10 16:00] VITALS: BP 118/68
--- NOTE | 2019-09-10 16:52 | NUR ---
PATIENT TRYING TO GET OUT OF THE BED SEVERAL TIMES. HIGH RISK FOR FALL. SITTER REQUESTED.
[2019-09-10] MEDS: *INSULIN REGULAR(HUMULIN R)HUM 100 UNIT/ML VIAL SQ PRN (18:11)
--- NOTE | 2019-09-10 18:27 | NUR ---
BOX NAILER OPENING NOTE RECEIVED PATIENT IN BED AWAKE, A/OX1. ON 2 L NC, RESPIRATION EVEN AND UNLABORED. ON TELE MONITOR SR HR 65. NO SIGN OF RESPIRATORY/CARDIAC DISTRESS AT THIS TIME. SKIN IS DRY WARM TO TOUCH. NOTED WITH SIRIA MIDLINE INTACT AND PATENT. NO S/S OF INFILTRATION OR INFECTION. FLUSHING WELL. RECEIVING PERITONEAL HEMODIALYSIS. CALL LIGHT WITHIN REACHED. BED LOCKED AND IN LOWEST POSITION. SIDE RAILS UP X3. BED ALARM ON. SAFETY MAINTAINED. WILL CONTINUE TO MONITOR CLOSELY.
--- NOTE | 2019-09-10 19:01 | NUR ---
SHEARING MACHINE FEEDER CLOSING NOTE PATIENT REFUSED TO EAT DINNER (JUST ATE 20%) AND SHE SAID: "IF YOU INSISTED ME TO EAT, I'LL SLAP YOU." ON 2L NC, RESPIRATION EVEN AND UNLABORED. ON TELE MONITOR SR WITH HR 86. NO SIGNIFICANT CHANGE DURING HE SHIFT. SITTER AT BEDSIDE. CALL LIGHT WITHIN REACH. BED LOW AND LOCKED. SIDE RAILS UP X3. BED ALARM ON. WILL ENDORSE TO PM NURSE FOR KAVITHA.
[2019-09-10 20:00] VITALS: BP 146/98
--- NOTE | 2019-09-10 20:18 | NUR ---
BEHAVIORAL TECHNICIAN NOTES RECEIVED PATIENT ASLEEP IN BED WITH NO DISTRESS NOTED. CALL LIGHT WITHIN REACH. SITTER AT BEDSIDE. LEFT HAND DRESSING INTACT, CLEAN, AND DRY. NO C/O PAIN OR DISCOMFORT. SIRIA MIDLINE INTACT AND PATENT. BED IN LOW LOCK SETTING. ALL BELONGINGS KEPT NEAR BEDSIDE. WILL CONTINUE TO MONITOR.
[2019-09-11] VITALS (69 sets, daily range): BP systolic 30–148; BP diastolic 20–98
[2019-09-11] MEDS: BLOOD SUGAR DIAGNOSTIC 1 EACH STRIP IN SCH ×6 (01:36→20:39)
[2019-09-11] MEDS: *INSULIN REGULAR(HUMULIN R)HUM 100 UNIT/ML VIAL SQ PRN ×2 (01:38→08:42)
[2019-09-11] MEDS: INSULIN REGULAR, HUMAN 100 UNIT/ML 3 ML VIAL SQ PRN ×4 (05:59→20:49)
[2019-09-11 06:22] LABS: BASOPHILS # (AUTO) 0.1 /CMM (0.0-0.2); BASOPHILS % (AUTO) 0.9 % (0.0-2.0); EOSINOPHILS % (AUTO) 1.6 % (0.0-6.0); HEMATOCRIT 21 % (33-45); HEMOGLOBIN 7.2 g/dL (11.5-14.8); LYMPHOCYTES # (AUTO) 1.6 /CMM (0.8-4.8); LYMPHOCYTES % (AUTO) 14.1 % (20.0-44.0); MEAN CORPUSCULAR HGB CONC 34 g/dl (31.0-36.0); MEAN CORPUSCULAR VOLUME 91 fL (82-100); MONOCYTES # (AUTO) 0.7 /CMM (0.1-1.30); MONOCYTES % (AUTO) 6.1 % (2.0-12.0); NEUTROPHILS # (AUTO) 8.6 /CMM (1.8-8.9); NEUTROPHILS % (AUTO) 77.3 % (43.0-81.0); PLATELET COUNT (AUTO) 373 /CMM (150-450); RED BLOOD CELL COUNT(AUTO) 2.35 MIL/uL (4.0-5.2); WHITE BLOOD COUNT (AUTO) 11.2 K/uL (4.3-11.0)
[2019-09-11 06:30] LABS: CALCIUM, SERUM 7.8 mg/dL (8.5-10.1); MAGNESIUM 2.1 mg/dL (1.8-2.4); PHOSPHORUS 5.8 mg/dL (2.5-4.9); POTASSIUM 4.3 mmol/L (3.5-5.1)
[2019-09-11 06:31] LABS: CREATININE 11.2 mg/dL (0.6-1.3)
--- NOTE | 2019-09-11 06:40 | NUR ---
SUPERVISOR PAINT DEPARTMENT NOTES PATIENT ASLEEP IN BED WITH NO DISTRESS NOTED. CALL LIGHT WITHIN REACH. SITTER AT BEDSIDE. NO C/O PAIN OR DISCOMFORT. PERITONEAL DIALYSIS INTACT. MIDLINE INTACT AND PATENT. BED IN LOW LOCK SETTING. ROOM FREE OF CLUTTER AND BELONGINGS KEPT NEAR BEDSIDE. BED ALARM ON AND FUNCTIONING PROPERLY. WILL ENDORSE TO ONCOMING SHIFT.
--- NOTE | 2019-09-11 07:21 | NUR ---
MUSIC SPECIALIST OPENING NOTE RECEIVED REPORT FROM [facility] SHIFT NURSE. PT ASLEEP IN BED, ON 02 VIA NC 3L/MIN, SATURATING WELL, RESPIRATIONS EVEN AND UNLABORED, NO SIGNS OF RESPIRATORY DISTRESS NOTED. SINUS RHYTHM ON TIME STUDY TECHNICIAN HR 78. RIGHT UPPER ARM MIDLINE INTACT, PATENT, SECURED WITH CLEAN DRESSING. BED IN LOW POSITION, LOCKED, CALL LIGHT WITHIN REACH.
[2019-09-11] MEDS: PANTOPRAZOLE 40 MG TABLET.DR PO SCH ×2 (07:30→07:34)
[2019-09-11] MEDS: NEPRO VAN 237 ML CAN PO SCH ×3 (08:00→16:20)
[2019-09-11] MEDS: CLOPIDOGREL BISULFATE 75 MG TABLET PO SCH (08:10)
[2019-09-11] MEDS: ASPIRIN 81 MG TAB.CHEW PO SCH (08:11)
[2019-09-11] MEDS: GABAPENTIN 100 MG CAPSULE PO SCH ×3 (08:11→16:18)
[2019-09-11] MEDS: LACTOBACILLUS RHAMNOSUS GG 1 EACH CAP.SPRINK PO SCH ×2 (08:11→16:18)
[2019-09-11] MEDS: NYSTATIN (PYXIS) 500,000 UNIT/5 ML ORAL.SUSP PO SCH ×3 (08:17→16:18)
[2019-09-11] MEDS: HYDROGEL DRESSING 90 GM TUBE TP SCH (08:17)
[2019-09-11] MEDS: CADEXOMER IODINE 40 GM TUBE TP SCH (08:17)
[2019-09-11] MEDS: CARVEDILOL 12.5 MG TABLET PO SCH ×2 (08:21→20:39)
[2019-09-11] MEDS: NIFEdipine XL (30MG) 30 MG TAB PO SCH ×2 (08:22→16:21)
[2019-09-11] MEDS: SEVELAMER CARBONATE 0.8 GM POWD.PACK PO SCH ×3 (08:58→17:21)
[2019-09-11] MEDS ORDERED: PIPERACILLIN /TAZOBACTAM 3.375 G in IV D5W 50 ML IV SCH (10:00)
[2019-09-11] MEDS ORDERED: IV NS 0.9% 250 ML IV ONE ×2 (10:00→10:30)
[2019-09-11] MEDS ORDERED: NOREPINEPHRINE 8 MG in IV D5W 500 ML IV PRN (10:00)
[2019-09-11] MEDS ORDERED: NOREPINEPHRINE 16 MG in IV D5W 500 ML IV PRN (10:00)
--- NOTE | 2019-09-11 10:00 | NUR ---
PT BECAME BRADYCARDIC, HR 47, THEN DECREASED TO HR 30. 0910 PT BECAME UNRESPONSIVE. BLOOD SUGAR 174MG/DL. RAPID RESPONSE CALLED. 913 UNABLE TO GET PULSE, CODE BLUE CALLED, CPR STARTED. 919 INTUBATED. 924 TRANSFERRED PT TO ICU VIA ACLS PROTOCOL TO ROOM 253. REPORT GIVEN TO SHON WASSERMAN. NOTIFIED FAMILY MEMBER IRINA ARMAS BY PHONE AT 09:45.
[2019-09-11 11:00] LABS: CALCIUM, SERUM 8.3 mg/dL (8.5-10.1); MAGNESIUM 2.2 mg/dL (1.8-2.4); POTASSIUM 5.1 mmol/L (3.5-5.1)
[2019-09-11] MEDS ORDERED: PHENYLEPHRINE 40 MG in IV D5W 250 ML IV PRN (11:00)
[2019-09-11 11:02] LABS: ABG BASE EXCESS 2.1 mmol/L; ABG PCO2 33.7 mmHg (35.0-45.0); ABG PH 7.494 (7.350-7.450); ABG PO2 325.9 mmHg (75.0-100.0); AaDO2 353.4 mmHg; MetHb 0.7 % (0.0-1.5); O2Hb 98.3 % (94.0-97.0); SITE, ABG Right Femoral; VT, ABG 500 mL
[2019-09-11 11:05] LABS: CREATININE 11.5 mg/dL (0.6-1.3)
[2019-09-11 11:06] LABS: BASOPHILS # (AUTO) 0.1 /CMM (0.0-0.2); BASOPHILS % (AUTO) 0.4 % (0.0-2.0); EOSINOPHILS % (AUTO) 0.9 % (0.0-6.0); HEMATOCRIT 22 % (33-45); HEMOGLOBIN 7.2 g/dL (11.5-14.8); LYMPHOCYTES # (AUTO) 1.2 /CMM (0.8-4.8); LYMPHOCYTES % (AUTO) 8.4 % (20.0-44.0); MEAN CORPUSCULAR HGB CONC 33 g/dl (31.0-36.0); MEAN CORPUSCULAR VOLUME 93 fL (82-100); MONOCYTES # (AUTO) 0.6 /CMM (0.1-1.30); MONOCYTES % (AUTO) 4.3 % (2.0-12.0); NEUTROPHILS # (AUTO) 11.9 /CMM (1.8-8.9); PLATELET COUNT (AUTO) 373 /CMM (150-450); RED BLOOD CELL COUNT(AUTO) 2.35 MIL/uL (4.0-5.2); WHITE BLOOD COUNT (AUTO) 13.8 K/uL (4.3-11.0)
[2019-09-11] MEDS ORDERED: SODIUM BICARBONATE SYR 50 MEQ/50 ML DISP.SYRIN IV ONE (11:17)
[2019-09-11] MEDS ORDERED: AMIODARONE 150 MG/3 ML VIAL IV ONE (11:17)
[2019-09-11] MEDS ORDERED: CALCIUM CHLORIDE 1,000 MG/10 ML DISP.SYRIN IV ONE (11:17)
[2019-09-11] MEDS ORDERED: EPINEPHRINE (1:10,000) SYRINGE 1 MG/10 ML DISP.SYRIN IVP ONE (11:17)
[2019-09-11] MEDS ORDERED: FEE PK DOSING 1 MIN EA MC ONE ×2 (11:17→17:09)
--- NOTE | 2019-09-11 11:28 | NUR ---
RN NOTE 0914: Responded to sae ruvalcaba 114-2, noted an RN doing CPR, Shruthi WASSERMAN CN also in the code, please see code blue sheet. 0921: Done with sae ruvalcaba, successful. SR 67, intubated on 7.5/23 cm lipline, received 2 Epi, 1 Calcium, 1 Na Bicarb, 300 Amio. 0930: Placed in ICU 253, connected to monitor. Patient has SIRIA midline, 7.5/27.5cm per RT Bong. Placed on OGT, noted with residuals, connected to LIS, noted with 400mL, Dr. Ledezma made aware. 0940: S/E by Dr. Ledezma, reoprt received from Angeline López RN. Noted with SBP 40's, Dr. Ledezma ordered to give 250mL NS bolus and may start on Levo. Dr. Tan made aware re: the transfer. 1000: Spoke with Suni, son and updated re: patient's condition, consented for PICC for pressors. Also spoke with David, son and sister, Gemma, also given update and told them to have a meeting to have one telephone service representative to be updated once, verbalized understanding. 1020: Noted patient waking up, opens eyes, does not comprehend at this time, agitated. Repositioned for comfort. SBP sometimes unable to read at times, Dr. Ledezma ordered to may increase Levo to max dose and give another 250mL NS bolus. Placed on PATIENT INTAKE COORDINATOR restraints for safety. 1100: PICC to be placed about 1330 per nurse sup. MDs aware, Levo running on midline for now. On max dose, now SBP 90's. RT Bong pulled out ETT, now 24cm lipline. Dr. Ledezma aware for the ABG, titrated FIO2 100% now 50%. 1125: Dialysis nurse at bedside for PD. SBP 90's now, patient is calm at this time. Will continue to monitor.
[2019-09-11] MEDS: ALBUTEROL HALF STRENGTH 1.25 MG/3 ML VIAL.NEB NEB SCH ×4 (11:30→23:51)
[2019-09-11] MEDS ORDERED: HEPARIN INFUSION/D5W 500 ML IV PRN (13:30)
[2019-09-11] MEDS: PROPOFOL 100 ML IV PRN ×2 (14:33→19:39)
[2019-09-11] MEDS: NOREPINEPHRINE 16 MG in IV D5W 500 ML IV PRN (14:57)
--- NOTE | 2019-09-11 15:12 | NUR ---
RN NOTE Made Dr. Tan aware for blood when suctioning, said still ok to start on Heparin, TOMAS Hawkins aware. Verified dosing for ACS Heparin drip, faxed to pharmacy.
[2019-09-11] MEDS ORDERED: HEPARIN SODIUM, PORCINE 5000 UNITS/1 ML VIAL IV ONE (15:30)
--- NOTE | 2019-09-11 16:45 | NUR ---
RN NOTE Family at bedside, spoke with them and Bossman especially, 1st son and sister Gemma, re: the plan of care. All questions and concerns were answered.
[2019-09-11] MEDS: MEROPENEM 500 MG in IV NS 0.9% 50 ML IV SCH (17:22)
[2019-09-11] MEDS ORDERED: PIPERACILLIN /TAZOBACTAM 2.25 G in IV D5W 50 ML IV SCH (18:00)
[2019-09-11] MEDS ORDERED: VANCOMYCIN 1 GM in IV D5W 250ml IV ONE (18:00)
--- NOTE | 2019-09-11 18:39 | NUR ---
RT NOTE, Pt 54 Y old female received in ICU post code blue from room 114-2 orally intubated ETT # 7.5 @ 26 cm lip line placed on vent with noted settings. alarms set and functional Vent is plugged into red outlet. b/s bilaterally rales, equal chest rise noted. @1105 et readjusted on 24 cm lipline Pt is stable no distress noted t/o shift. report will pass to pm shift. Addendum: 09/11/19 at 1843 by DOUG MEI RT Amended: Links added.
--- NOTE | 2019-09-11 19:58 | NUR ---
RT Pt received Intubated on [facility] vent with noted setting. Pt ETT 7.5 @ 24Cm patent and secure. Bilateral chest rise and fall. Pt tolerating setting well. No sob or distress noted at this time. Will continue to monitor. Addendum: 09/11/19 at 2000 by TANYA RASHEED RT Amended: Links added.
--- NOTE | 2019-09-11 20:00 | NUR ---
WARE FINISHER - NOTES - RECEIVED PT IN BED, INTUBATED WITH 7.5 ETT, 24 CM AT LIP LINE, VENT SETTINGS ORDERED. PT IS SEDATED ON DIPRIVAN @ 35 MCG/KG/MIN, PT WITH BILATERAL SOFT WRIST RESTRAINTS TO PREVENT SELF EXTUBATION. PT IS IN SR, HR 60S WITH LEVOPHED @ 14 MCG/MIN BP 107/67. PT IS NPO WITH OGT CLAMPED, ACCUCHECK Q4H. PT IS ANURIC RECIEVING PERITONEAL DIALYSIS PER DIALYSIS NURSE. PT NOTED WITH WOUNDS DOCUMENTED IN CHART. PT HAS SIRIA PICC LINE, PT IS ON HEPARIN GTT @ 1000 UNITS/HR, WILL ADJUST PER PTT VALUE AT 2230. WILL CONTINUE TO MONITOR
[2019-09-12] VITALS (75 sets, daily range): BP systolic 82–159; BP diastolic 32–146
[2019-09-12] MEDS: BLOOD SUGAR DIAGNOSTIC 1 EACH STRIP IN SCH ×7 (00:39→22:01)
[2019-09-12] MEDS: PROPOFOL 100 ML IV PRN (02:39)
[2019-09-12] MEDS: ALBUTEROL HALF STRENGTH 1.25 MG/3 ML VIAL.NEB NEB SCH ×6 (03:36→23:48)
[2019-09-12] MEDS: DEXTROSE 50%-WATER 50 ML DISP.SYRIN IV PRN (04:24)
[2019-09-12 04:42] LABS: BASOPHILS # (AUTO) 0.1 /CMM (0.0-0.2); BASOPHILS % (AUTO) 0.9 % (0.0-2.0); EOSINOPHILS % (AUTO) 1.2 % (0.0-6.0); HEMATOCRIT 21 % (33-45); LYMPHOCYTES # (AUTO) 1.7 /CMM (0.8-4.8); LYMPHOCYTES % (AUTO) 15.4 % (20.0-44.0); MEAN CORPUSCULAR HGB CONC 34 g/dl (31.0-36.0); MEAN CORPUSCULAR VOLUME 90 fL (82-100); MONOCYTES # (AUTO) 0.7 /CMM (0.1-1.30); MONOCYTES % (AUTO) 5.8 % (2.0-12.0); NEUTROPHILS # (AUTO) 8.6 /CMM (1.8-8.9); NEUTROPHILS % (AUTO) 76.7 % (43.0-81.0); PLATELET COUNT (AUTO) 390 /CMM (150-450); RED BLOOD CELL COUNT(AUTO) 2.29 MIL/uL (4.0-5.2); WHITE BLOOD COUNT (AUTO) 11.2 K/uL (4.3-11.0)
[2019-09-12 04:56] LABS: PHOSPHORUS 4.8 mg/dL (2.5-4.9); POTASSIUM 3.3 mmol/L (3.5-5.1)
[2019-09-12] MEDS ORDERED: DEXTROSE 50%-WATER 50 ML DISP.SYRIN IV PRN (05:00)
[2019-09-12] MEDS: MEROPENEM 500 MG in IV NS 0.9% 50 ML IV SCH ×2 (05:12→16:58)
[2019-09-12 05:23] LABS: CREATININE 10.8 mg/dL (0.6-1.3)
--- NOTE | 2019-09-12 06:40 | NUR ---
0423 - BLOOD SUGAR < 10 AFTER 3 CHECKS. PT GIVEN D50, SOPHY THACKER BUSINESS MANAGEMENT CONSULTANT CALLED, CHANGED INSULIN SLIDING SCALE TO NPO Q4H, DONT COVER UNLESS OVER 150. 0453 - RECHECKED AFTER 30 MINS, BLOOD SUGAR UP TO 120 0515 - BLOOD SUGAR DROPPED TO 84 0602 - BLOOD SUGAR DROPPED TO 58, D50 GIVEN. 0627 - BLOOD SUGAR 161
[2019-09-12] MEDS ORDERED: VANCOMYCIN POST DIALYSIS 500MG IV PRN ×2 (07:00)
[2019-09-12] MEDS: NEPRO VAN 237 ML CAN PO SCH ×2 (08:00→12:00)
[2019-09-12] MEDS: SEVELAMER CARBONATE 0.8 GM POWD.PACK PO SCH (08:00)
[2019-09-12] MEDS: PANTOPRAZOLE 40 MG TABLET.DR PO SCH (08:54)
[2019-09-12] MEDS: LACTOBACILLUS RHAMNOSUS GG 1 EACH CAP.SPRINK PO SCH ×2 (08:54→17:00)
[2019-09-12] MEDS: HYDROCORTISONE SOD SUCCINATE 100 MG/2 ML VIAL IV SCH ×4 (08:54→18:29)
[2019-09-12] MEDS: ASPIRIN 81 MG TAB.CHEW PO SCH (08:58)
[2019-09-12] MEDS: CLOPIDOGREL BISULFATE 75 MG TABLET PO SCH (08:58)
[2019-09-12] MEDS: CARVEDILOL 12.5 MG TABLET PO SCH ×2 (09:00→21:00)
[2019-09-12] MEDS: HEPARIN SODIUM, PORCINE 5000 UNITS/1 ML VIAL SQ SCH ×2 (09:00→21:53)
[2019-09-12] MEDS: GABAPENTIN 100 MG CAPSULE PO SCH (09:00)
--- NOTE | 2019-09-12 09:20 | NUR ---
RT PER DR PENA PATIENT PLACED ON VENT WEANING MODE SIMV 4, PS 15. PATIENT TOLERATED WELL. PER DR PENA PATIENT IS TO REMAIN ON WEANING MODE LONG SHE TOLERATES. WHEN PATIENT IS MORE RESPONSIVE CONTACT DR PENA TO EXTUBATE. Addendum: 09/12/19 at 1351 by JOSÉ MIGUEL FALLON RT Amended: Links added.
[2019-09-12 10:22] LABS: ABG BASE EXCESS -0.3 mmol/L; ABG OXYGEN SATURATION 97.7 % (92.0-98.5); ABG PH 7.465 (7.350-7.450); ABG PO2 117.6 mmHg (75.0-100.0); AaDO2 129.7 mmHg; COHb 0.3 % (0.5-1.5); MetHb 0.6 % (0.0-1.5); O2Hb 96.8 % (94.0-97.0); SITE, ABG Right Radial; VENT MODE, BG simv 4 500 15ps 40% +5
[2019-09-12] MEDS ORDERED: IV 10% DEXTROSE 1,000 ML IV PRN (10:30)
--- NOTE | 2019-09-12 10:53 | NUR ---
RN NOTES 07-RECEIVED PATIENT FROM RN. PATIENT ORALLY INTUBATED, ON AC MODE. ALSO ON PROPOFOL DRIP AT 30 MCG/KG/MIN AND LEVOPHED AT 10 MCG/MIN FOR BP SUPPORT. GLUCOSE WAS AN ISSUE PREVIOUS SHIFT, MONITOR STATUS. 30-OFF PROPOFOL FOR SEDATION VACATION. DR. PENA EVALUATES PATIENT 914-DR SOLANO INFORMED OF PATIENT STATUS-BP,PD, GLUCOSE. 0930-PATIENT OPENS EYES TO LOUD VOICE, ACCUCHECK DONE PER DR PENA, 85 MG/DL, WITH D10 ORDER. MONITOR RESPONSE. 1100-PATIENT FAMILY, SISTER SHRADDHA AND SON LISSETH VISITS, THEY WERE UPDATED OF PATIENT STATUS. SHRADDHA'S QUESTIONS ANSWERED. BP SUPPORTED WITH LEVOPHED
[2019-09-12] MEDS: NOREPINEPHRINE 16 MG in IV D5W 500 ML IV PRN (12:15)
[2019-09-12] MEDS: INSULIN REGULAR, HUMAN 100 UNIT/ML 3 ML VIAL SQ PRN ×3 (13:37→21:58)
--- NOTE | 2019-09-12 14:41 | NUR ---
RN PARVIN 1230-REMAINS ON IMV MODE, SHE APPEARS COMFORTABLE. REPOSITIONED FOR COMFORT AND SAFETY 1400-PATIENT IN D10 FOR GLUCOSE SUPPORT.PATIENT NOTED TO OPEN EYES BRIEFLY WHEN NAME CALLED OUT LOUD. SON LISSETH AT BEDSIDE, DR PENA RE-EVALUATED PATIENT AND DISCUSSED PLAN OF CARE WITH LISSETH MONTANEZ VERBALIZED UNDERSTANDING. LEVOPHED TITRATED, CONTINUE MONITOR PATIENT BP.
[2019-09-12] MEDS: CADEXOMER IODINE 40 GM TUBE TP SCH (15:41)
[2019-09-12] MEDS: HYDROGEL DRESSING 90 GM TUBE TP SCH (15:41)
--- NOTE | 2019-09-12 17:10 | NUR ---
PER DR PENA ORDER PATIENT WAS EXTUBATED AND PLACED ON SUPPLEMENTAL O2 TOLERATING WELL. LISY WAN AT BEDSIDE. WILL CONT TO MONITOR CLOSELY
[2019-09-12] MEDS: NYSTATIN (PYXIS) 500,000 UNIT/5 ML ORAL.SUSP PO SCH (18:30)
[2019-09-12] MEDS ORDERED: IV D5/ 0.9% NACL 1,000 ML IV PRN (18:30)
--- NOTE | 2019-09-12 19:20 | NUR ---
RN NOTES 1730-PATIENT NOW EXTUBATED, SATURATES UP TO 100%. OPENS EYES TO VOICE, FAMILY AT BEDSIDE, THEY ARE HAPPY THAT PATIENT EXTUBATED. 1900-PATIENT ON CANNULA, SATURATION UP TO 100%.LEVOPHED OFF, BP WITHIN RANGE. OPENS EYES TO VOICE, HOB UP. REPORT GIVEN TO RN FOR FURTHER CARE
[2019-09-12] MEDS ORDERED: ACETAMINOPHEN 650 MG/SUPP.RECT RC ONE (22:30)
[2019-09-13] VITALS (22 sets, daily range): BP systolic 91–134; BP diastolic 46–88
[2019-09-13] MEDS: BLOOD SUGAR DIAGNOSTIC 1 EACH STRIP IN SCH ×6 (02:04→21:38)
[2019-09-13] MEDS: INSULIN REGULAR, HUMAN 100 UNIT/ML 3 ML VIAL SQ PRN ×3 (02:05→17:34)
[2019-09-13] MEDS: ALBUTEROL HALF STRENGTH 1.25 MG/3 ML VIAL.NEB NEB SCH ×6 (03:24→23:34)
[2019-09-13 04:33] LABS: BASOPHILS % (AUTO) 0.2 % (0.0-2.0); HEMATOCRIT 22 % (33-45); HEMOGLOBIN 7.4 g/dL (11.5-14.8); LYMPHOCYTES # (AUTO) 0.8 /CMM (0.8-4.8); LYMPHOCYTES % (AUTO) 4.1 % (20.0-44.0); MEAN CORPUSCULAR HGB CONC 33 g/dl (31.0-36.0); MEAN CORPUSCULAR VOLUME 92 fL (82-100); MONOCYTES # (AUTO) 0.3 /CMM (0.1-1.30); MONOCYTES % (AUTO) 1.6 % (2.0-12.0); NEUTROPHILS # (AUTO) 17.6 /CMM (1.8-8.9); NEUTROPHILS % (AUTO) 94.1 % (43.0-81.0); PLATELET COUNT (AUTO) 351 /CMM (150-450); RED BLOOD CELL COUNT(AUTO) 2.44 MIL/uL (4.0-5.2); WHITE BLOOD COUNT (AUTO) 18.7 K/uL (4.3-11.0)
[2019-09-13 04:47] LABS: CALCIUM, SERUM 8.2 mg/dL (8.5-10.1); PHOSPHORUS 5.7 mg/dL (2.5-4.9); POTASSIUM 3.6 mmol/L (3.5-5.1)
[2019-09-13 04:48] LABS: CREATININE 9.9 mg/dL (0.6-1.3)
[2019-09-13] MEDS: MEROPENEM 500 MG in IV NS 0.9% 50 ML IV SCH (05:18)
--- NOTE | 2019-09-13 06:40 | NUR ---
PATIENT REMAINS IN NO ACUTE DISTRESS IN BED. PATIENT DID NOT HAVE ANY SIGNIFICANT CHANGE IN CONDITION DURING SHIFT. PATIENT TOLERATED NASAL CANNULA WELL WITH O2 SAT @ 98-100%. ALL NEEDS MET, ALL ORDERS CARRIED OUT. WILL ENDORSE CARE TO AM RN FOR CONTINUITY OF CARE.
--- NOTE | 2019-09-13 07:00 | NUR ---
RN NOTES RECEIVED PT ON BED, A/OX1 ON 4L O2 N/C , RESPIRATION EVEN AND UNLABORED, ON TELE SR HR IN 70'S , D5NS AT 40CC/HR RUNNING VIA R UPPER ARM PICC LINE , SITE CLEAN, DRY AND INTACT, SR UP x3, CALL LIGHT WITHIN EASY REACH , BED LOCKED AND IN LOWEST POSITION, CONTINUE TO MONITOR Addendum: 09/13/19 at 0745 by JENNY MAURER RN ABOVE NOTE CHARTED BY JENNY MAURER
[2019-09-13] MEDS: NEPRO VAN 237 ML CAN PO SCH ×3 (08:00→18:08)
[2019-09-13] MEDS: LACTOBACILLUS RHAMNOSUS GG 1 EACH CAP.SPRINK PO SCH ×2 (08:28→17:28)
[2019-09-13] MEDS: CARVEDILOL 12.5 MG TABLET PO SCH ×2 (08:30→21:00)
[2019-09-13] MEDS: PANTOPRAZOLE 40 MG TABLET.DR PO SCH (08:30)
[2019-09-13] MEDS: HYDROCORTISONE SOD SUCCINATE 100 MG/2 ML VIAL IV SCH ×3 (08:30→17:25)
[2019-09-13] MEDS: ASPIRIN 81 MG TAB.CHEW PO SCH (08:30)
[2019-09-13] MEDS: CLOPIDOGREL BISULFATE 75 MG TABLET PO SCH (08:31)
[2019-09-13] MEDS: HEPARIN SODIUM, PORCINE 5000 UNITS/1 ML VIAL SQ SCH ×2 (08:32→22:00)
[2019-09-13] MEDS: NYSTATIN (PYXIS) 500,000 UNIT/5 ML ORAL.SUSP PO SCH ×3 (08:34→17:28)
[2019-09-13] MEDS: GABAPENTIN 100 MG CAPSULE PO SCH ×3 (08:34→17:28)
[2019-09-13] MEDS: SEVELAMER CARBONATE 0.8 GM POWD.PACK PO SCH ×3 (08:34→17:27)
[2019-09-13] MEDS: HYDROGEL DRESSING 90 GM TUBE TP SCH (08:36)
[2019-09-13] MEDS: CADEXOMER IODINE 40 GM TUBE TP SCH (08:36)
[2019-09-13] MEDS: ACETAMINOPHEN 325 MG TABLET PO PRN ×2 (08:57→14:45)
--- NOTE | 2019-09-13 11:00 | NUR ---
RN NOTES D5 NS AT 40 CC/HR D/GABE PER DR. SOLANO ORDER , CONTINUE TO MONITOR.
[2019-09-13] MEDS ORDERED: BLOOD SUGAR DIAGNOSTIC 1 EACH STRIP IN SCH ×2 (12:00)
[2019-09-13] MEDS ORDERED: DEXTROSE 50%-WATER 50 ML DISP.SYRIN IV PRN (12:30)
--- NOTE | 2019-09-13 13:15 | NUR ---
RN NOTES PT TRANSFERRED TO ROOM 115-1 VIA ACLS PROTOCOL IN STABLE CONDITION, REPORT GIVEN TO ROLLY WASSERMAN FOR CONTINUITY OF CARE
--- NOTE | 2019-09-13 13:36 | NUR ---
RN NOTE RECIEVED PATIENT FROM ICU. PATIENT ALERT AND ORIENTED X 2 WITH PERIODS OF FORGETFULNESS, REORITENTED PATIENT, NO SOB NOTED. WITH O2 VIA NC @ 2LPM. WITH COMPLAINT OF MILD SACRAL PAIN. PT CLEANED, SACRAL WOUND DRESSED, REPOSITIONED ON RIGHT SIDE. ID BAND CHECKED. PT ON TELE MONITOR SINUS RYTHM, PT WITH PICC LINE ON RUE WITH ALL THREE LUMENS FLUSHED AND TOLERATING WELL. PT ON SOFT DIET. ANURIC AND ON PERITONEAL DIALYSIS. PD DRESSING IN PLACE. BED IN LOW POSITION. BED ALARM ON. WILL MONITOR.
--- NOTE | 2019-09-13 15:20 | NUR ---
RN NOTE PATIENT COMPLAINING OF MODERATE PAIN RELATED TO SACRAL WOUND DDESPITE REPOSITIONING AND ADMINISTRATION OF ACETAMINOPHEN 325MG 2 TABS PO. PAGED XIOMARA CRUZ.
[2019-09-13] MEDS: CEFEPIME 2 GM in IV D5W 100 ML IV SCH (15:36)
--- NOTE | 2019-09-13 15:41 | NUR ---
RN NOTE XIOMARA CRUZ CALLED BACK WITH ORDER TO ADMINISTER TRAMADOL 50MG PO Q6H PRN FOR MODERATE TO SEVERE PAIN.
--- NOTE | 2019-09-13 15:49 | NUR ---
RESP TX DEFERRED, PT ASLEEP. FAMILY SLEEPING WELL AT BEDSIDE. NO S/S OF SOB NOTED. WILL CONT TO MONITOR
--- NOTE | 2019-09-13 15:49 | NUR ---
RN NOTE NOTED WITH MORPHINE ALLERGY. PT AND DAUGHTER STATE THAT MORPHINE MAKES PT DROWSY AND WITH SMALL GI UPSET. NOTIFIED XIOMARA CRUZ WHO STATES THAT IT IS OKAY TO GIVE AND TO MONITOR PT. ORDER CARRIED OUT.
[2019-09-13] MEDS: TRAMADOL HCL 50 MG TABLET PO PRN ×2 (17:27→23:59)
--- NOTE | 2019-09-13 18:35 | NUR ---
RN NOTE ASSISTED PT TO FEEDING POSITION FOR DINNER. HEAD OF BED ELEVATED AND WITHOUT SIGNS OF DISTRESS. ATTEMPTED TO ASSIST PT WITH FEEDING BUT PATIENT REFUSED EXCLAIMING "NOT RIGHT NOW" DESPITE EXPLANATION OF RISKS.
--- NOTE | 2019-09-13 19:25 | NUR ---
TELE/RN NOTES Patient received in bed, resting comfortably at this time, A/O x1-2, denies any pain at this time, No S/S of acute distress noted, breathing even and unlabored, On NC with O2 @ 2LPM, No SOB noted. On tele monitoring with sinus tachy, PICC line in place, Safety maintained, bed at the lowest locked position, Call light within reach. Family at bed side. Will continue to monitor resident as per plan of care.
--- NOTE | 2019-09-13 21:24 | NUR ---
Coreg note given due to Low BP 98/56, Hr 91
[2019-09-14] VITALS: BP 110/58
--- NOTE | 2019-09-14 02:10 | NUR ---
Patient complaining of abdominal and back pain, unable to assess pain levels as patient was screaming and yelling. Tramadol not due yet. Called Dr. Dutch leon at this time, relayed patient condition, with new order to give tramadol 50mg one time dose now and he will increase her tramadol to 100mg Q6hrs PRN. Order noted and carried out.
[2019-09-14] MEDS ORDERED: TRAMADOL HCL 50 MG TABLET PO ONE (02:30)
[2019-09-14 04:00] VITALS: BP 94/52
[2019-09-14] MEDS: ALBUTEROL HALF STRENGTH 1.25 MG/3 ML VIAL.NEB NEB SCH ×6 (04:01→22:47)
--- NOTE | 2019-09-14 06:58 | NUR ---
TELE/RN NOTES Patient remained in bed, resting comfortably at this time, in no acute distress, breathing even and unlabored, On NC with O2 @ 2LPM, No SOB noted. On tele monitoring with sinus rhythm, PICC line in place, Safety maintained, bed at the lowest locked position, Call light within reach. will endorse to AM shift nurse for KAVITHA.
--- NOTE | 2019-09-14 07:15 | NUR ---
TELE/RN AM NOTES PT IN BED, AWAKE, ALERT ORIENTED X 1-2, SCREAMING, C/O 7/10 PAIN ON SACRAL AREA BUT REFUSES TRAMADOL WHEN OFFERED, ON 2L O2 VIA NASAL CANULA, NO SOB, RESPIRATION UNLABORED. SINUS RHYTHM ON MONITOR, WITH RIGHT UPPER ARM PICC LINE, FLUSHES WELL, CDI DRESSING, SITE CLEAR, WITH ABDOMINAL PERITONEAL HD CATH IN PLACE, CDI DRESSING, LEFT ARM WITH AV SHUNT, SEE NURSING FLOWSHEET FOR SKIN ISSUES, SOFT DIET, USES DIAPER, NEEDS ASSIST IN TURNING AND REPOSITIONING. SAFETY MAINTAINED, BED IN LOWEST LOCKED POSITION, CALL LIGHT WITHIN REACH, WILL CONTINUE TO MONITOR.
--- NOTE | 2019-09-14 07:30 | NUR ---
PATIENT REFUSING TELE ,THROW BOX ON THE FLOOR,DR. SEGOVIA MADE AWARE AND OK TO DISCONTINUE TELE.
[2019-09-14] MEDS: PANTOPRAZOLE 40 MG TABLET.DR PO SCH (07:47)
[2019-09-14] MEDS: SEVELAMER CARBONATE 0.8 GM POWD.PACK PO SCH ×3 (07:48→17:25)
[2019-09-14] MEDS: BLOOD SUGAR DIAGNOSTIC 1 EACH STRIP IN SCH ×4 (07:48→21:19)
[2019-09-14] MEDS: NEPRO VAN 237 ML CAN PO SCH ×3 (07:49→18:19)
[2019-09-14 08:00] VITALS: BP 119/81
--- NOTE | 2019-09-14 08:00 | NUR ---
MS RN NOTES ACCUCHECK. BS 202 MG/DL. 4 UNITS HUM R GIVEN PER SS. DC TELEMETRY PER DR. SEGOVIA
[2019-09-14] MEDS: INSULIN REGULAR, HUMAN 100 UNIT/ML 3 ML VIAL SQ PRN ×2 (08:25→12:22)
[2019-09-14] MEDS: HEPARIN SODIUM, PORCINE 5000 UNITS/1 ML VIAL SQ SCH ×2 (08:26→21:23)
[2019-09-14] MEDS: GABAPENTIN 100 MG CAPSULE PO SCH ×3 (08:28→17:25)
[2019-09-14] MEDS: ASPIRIN 81 MG TAB.CHEW PO SCH (08:28)
[2019-09-14] MEDS: HYDROCORTISONE SOD SUCCINATE 100 MG/2 ML VIAL IV SCH ×3 (08:28→17:26)
[2019-09-14] MEDS: NYSTATIN (PYXIS) 500,000 UNIT/5 ML ORAL.SUSP PO SCH ×3 (08:28→17:25)
[2019-09-14] MEDS: CLOPIDOGREL BISULFATE 75 MG TABLET PO SCH (08:28)
[2019-09-14] MEDS: LACTOBACILLUS RHAMNOSUS GG 1 EACH CAP.SPRINK PO SCH ×2 (08:29→17:26)
[2019-09-14] MEDS: CARVEDILOL 12.5 MG TABLET PO SCH ×2 (08:29→21:00)
[2019-09-14] MEDS: HYDROGEL DRESSING 90 GM TUBE TP SCH (08:29)
[2019-09-14] MEDS: CADEXOMER IODINE 40 GM TUBE TP SCH (08:30)
[2019-09-14] MEDS: TRAMADOL HCL 50 MG TABLET PO PRN (08:32)
--- NOTE | 2019-09-14 09:30 | NUR ---
MS RN NOTES DUE MEDS GIVEN
--- NOTE | 2019-09-14 12:19 | NUR ---
MS RN NOTES ACCUCHECK. BS 227 MG/DL. 4 UNITS HUM R GIVEN PER SS.
[2019-09-14] MEDS: CEFEPIME 2 GM in IV D5W 100 ML IV SCH (15:34)
[2019-09-14 16:00] VITALS: BP_SYST 120; BP_DIAS 42; BP_DIAS 48
--- NOTE | 2019-09-14 17:38 | NUR ---
MS RN NOTES ACCUCHECK. BS 62 MG/DL. NO INSULIN COVERAGE GIVEN AT THIS TIME. GAVE CRANBERRY JUICE AND SERVED DINNER.
--- NOTE | 2019-09-14 18:21 | NUR ---
LISY NOTES BLOOD SUGAR RECHECK 46 MG/DL. ADMINISTERED D50 IV. WILL RECHECK BLOOD SUGAR Addendum: 09/14/19 at 1837 by BEREKET RASHEED RN DR. XIOMARA SNOW.
--- NOTE | 2019-09-14 18:38 | NUR ---
MS RN NOTES BLOOD SUGAR RECHECKED 134 MG/DL.
--- NOTE | 2019-09-14 18:57 | NUR ---
MS RN NOTES ALL NEEDS MET AT THIS TIME. PATIENT RESTING COMFORTABLY. CALL LIGHT WITHIN REACH. WILL ENDORSE TO NEXT SHIFT FOR KAVITHA.
--- NOTE | 2019-09-14 19:25 | NUR ---
MS/RN NOTES Patient received in bed, resting comfortably at this time, A/O x1-2, denies any pain at this time, No S/S of acute distress noted, breathing even and unlabored, On NC with O2 @ 2LPM, No SOB noted. PICC line in place, Safety maintained, bed at the lowest locked position, Call light within reach. Will continue to monitor resident as per plan of care.
[2019-09-14 20:00] VITALS: BP 101/54
--- NOTE | 2019-09-14 21:19 | NUR ---
coreg held due to low BP 101/54, Hr 64
[2019-09-15] MEDS: TRAMADOL HCL 50 MG TABLET PO PRN (02:14)
[2019-09-15] MEDS: ALBUTEROL HALF STRENGTH 1.25 MG/3 ML VIAL.NEB NEB SCH ×6 (02:46→23:20)
[2019-09-15 04:00] VITALS: BP 129/70
--- NOTE | 2019-09-15 04:00 | NUR ---
Patient refused all treatments, risks and benefits explained, patient still refused,
[2019-09-15 06:41] LABS: BASOPHILS # (AUTO) 0.2 /CMM (0.0-0.2); BASOPHILS % (AUTO) 0.7 % (0.0-2.0); HEMATOCRIT 23 % (33-45); HEMOGLOBIN 7.4 g/dL (11.5-14.8); LYMPHOCYTES # (AUTO) 1.3 /CMM (0.8-4.8); LYMPHOCYTES % (AUTO) 4.9 % (20.0-44.0); MEAN CORPUSCULAR HGB CONC 33 g/dl (31.0-36.0); MEAN CORPUSCULAR VOLUME 92 fL (82-100); MONOCYTES # (AUTO) 0.8 /CMM (0.1-1.30); MONOCYTES % (AUTO) 3.1 % (2.0-12.0); NEUTROPHILS % (AUTO) 91.3 % (43.0-81.0); PLATELET COUNT (AUTO) 289 /CMM (150-450); RED BLOOD CELL COUNT(AUTO) 2.44 MIL/uL (4.0-5.2); WHITE BLOOD COUNT (AUTO) 26.3 K/uL (4.3-11.0)
--- NOTE | 2019-09-15 06:56 | NUR ---
TELE/RN NOTES Patient remained in bed, resting comfortably at this time, in no acute distress, breathing even and unlabored, On NC with O2 @ 2LPM, No SOB noted. All due meds given as ordered, was able to convince patient for treatments, rendered, tolerated well. kept clean and dry, needs attendant, PICC line in place, PD cath in place, dressing intact, Safety maintained, bed at the lowest locked position, Call light within reach. will endorse to AM shift nurse for KAVITHA.
[2019-09-15 07:06] LABS: HIV SCRN 4G wRFX Non Reactive (Non Reactive)
[2019-09-15 07:22] LABS: BILIRUBIN,TOTAL 0.3 mg/dL (0.2-1.0); CALCIUM, SERUM 8.6 mg/dL (8.5-10.1); MAGNESIUM 2.3 mg/dL (1.8-2.4); PHOSPHORUS 7.5 mg/dL (2.5-4.9); POTASSIUM 4.7 mmol/L (3.5-5.1); TOTAL PROTEIN, SERUM 5.4 g/dL (6.4-8.2)
[2019-09-15 07:28] LABS: ALBUMIN 1.3 g/dL (3.4-5.0); CREATININE 9.9 mg/dL (0.6-1.3)
--- NOTE | 2019-09-15 07:30 | NUR ---
MS RN AM NOTES PT IN BED, AWAKE, ALERT ORIENTED X 1-2, CALM AT THIS TIME, JUST HAD AM CARE. ON 2L O2 VIA NASAL CANULA, NO SOB, RESPIRATION UNLABORED. WITH RIGHT UPPER ARM PICC LINE, FLUSHES WELL, CDI DRESSING, SITE CLEAR, WITH ABDOMINAL PERITONEAL HD CATH IN PLACE, CDI DRESSING, LEFT ARM WITH AV SHUNT, SEE NURSING FLOWSHEET FOR SKIN ISSUES, SOFT DIET, USES DIAPER, NEEDS ASSIST IN TURNING AND REPOSITIONING. SAFETY MAINTAINED, BED IN LOWEST LOCKED POSITION, CALL LIGHT WITHIN REACH, WILL CONTINUE TO MONITOR.
[2019-09-15] MEDS: BLOOD SUGAR DIAGNOSTIC 1 EACH STRIP IN SCH ×4 (07:51→21:37)
[2019-09-15] MEDS: SEVELAMER CARBONATE 0.8 GM POWD.PACK PO SCH ×3 (07:51→17:04)
[2019-09-15] MEDS: PANTOPRAZOLE 40 MG TABLET.DR PO SCH (07:51)
[2019-09-15] MEDS: NEPRO VAN 237 ML CAN PO SCH ×3 (07:53→18:07)
[2019-09-15 08:00] VITALS: BP_SYST 128; BP_DIAS 56; BP_DIAS 58
--- NOTE | 2019-09-15 08:14 | NUR ---
MS RN NOTES ACCUCHECK. BS 202 MG/DL. NO INSULIN COVERAGE GIVEN A THIS TIME. PT'S BLOOD SUGAR DROPPED LAST NIGHT PT WITH POOR ORAL INTAKE. Addendum: 09/15/19 at 1234 by BEREKET RASHEED RN AMMENDMNYASIA: DR.RUTHERFORD SNOW.
[2019-09-15] MEDS: HYDROCORTISONE SOD SUCCINATE 100 MG/2 ML VIAL IV SCH ×3 (09:39→17:05)
[2019-09-15] MEDS: NYSTATIN (PYXIS) 500,000 UNIT/5 ML ORAL.SUSP PO SCH ×3 (09:39→17:05)
[2019-09-15] MEDS: CLOPIDOGREL BISULFATE 75 MG TABLET PO SCH (09:39)
[2019-09-15] MEDS: ASPIRIN 81 MG TAB.CHEW PO SCH (09:40)
[2019-09-15] MEDS: LACTOBACILLUS RHAMNOSUS GG 1 EACH CAP.SPRINK PO SCH ×2 (09:40→17:05)
[2019-09-15] MEDS: CARVEDILOL 12.5 MG TABLET PO SCH ×2 (09:40→21:00)
[2019-09-15] MEDS: GABAPENTIN 100 MG CAPSULE PO SCH ×3 (09:40→17:04)
[2019-09-15] MEDS: HYDROGEL DRESSING 90 GM TUBE TP SCH (09:42)
[2019-09-15] MEDS: HEPARIN SODIUM, PORCINE 5000 UNITS/1 ML VIAL SQ SCH ×2 (09:42→21:44)
[2019-09-15] MEDS: CADEXOMER IODINE 40 GM TUBE TP SCH (09:43)
--- NOTE | 2019-09-15 11:10 | NUR ---
MS RN NOTES ACCUCHECK. BS 227 MG/DL. NO INSULIN COVERAGE GIVEN A THIS TIME. PT HAS NOT EATEN.
--- NOTE | 2019-09-15 11:44 | NUR ---
RN NOTES LACTIC ACID 3.1. NOTIFIED DR. SOLANO. NO NEW ORDERS RECEIVED.
[2019-09-15 14:32] LABS: BILIRUBIN,DIRECT 0.1 mg/dL (0.0-0.2)
--- NOTE | 2019-09-15 15:02 | NUR ---
RN NOTES REPEAT LACTIC ACID 2.7. NOTIFIED DR. SOLANO. NO NEW ORDERS RECEIVED.
[2019-09-15] MEDS: CEFEPIME 2 GM in IV D5W 100 ML IV SCH (15:42)
[2019-09-15 16:00] VITALS: BP 97/83
--- NOTE | 2019-09-15 18:59 | NUR ---
MS RN NOTES ALL NEEDS MET AT THIS TIME. PATIENT RESTING COMFORTABLY. CALL LIGHT WITHIN REACH. WILL ENDORSE TO NEXT SHIFT FOR KAVITHA.
--- NOTE | 2019-09-15 19:10 | NUR ---
RN OPENING NOTES: PATIENT AWAKE AND VERBALLY RESPONSIVE. NO RESPIRATORY DISTRESS. NO PAIN. SIRIA MIDLINE INTACT, PATENT, AND FLUSHING WELL. SITTER AT BEDSIDE. SAFETY PRECAUTIONS IMPLEMENTED. BED LOCKED AND IN LOWEST POSITION. CALL LIGHT PLACED WITHIN REACH. WILL CONT. TO MONITOR.
[2019-09-15 20:00] VITALS: BP 99/44
--- NOTE | 2019-09-15 21:02 | NUR ---
LISY NOTE: COREG DOSE HELD AND NOT ADMINISTERED. PATIENT'S BP 97/44. Addendum: 09/15/19 at 2102 by SAIMA ROMO RN WRONG PATIENT Addendum: 09/15/19 at 2103 by SAIMA ROMO RN DISREGARD "WRONG PATIENT" NOTE
--- NOTE | 2019-09-15 21:03 | NUR ---
RN NOTE: COREG DOSE HELD AND NOT ADMINISTERED. PATIENT'S BP 97/44.
[2019-09-15] MEDS: INSULIN REGULAR, HUMAN 100 UNIT/ML 3 ML VIAL SQ PRN (21:40)
[2019-09-16] MEDS: ALBUTEROL HALF STRENGTH 1.25 MG/3 ML VIAL.NEB NEB SCH ×5 (03:54→19:23)
[2019-09-16 04:00] VITALS: BP 99/61
--- NOTE | 2019-09-16 06:13 | NUR ---
RN NOTE: PATIENT UNABLE TO COUGH UP SPUTUM FOR COLLECTION AT THIS TIME. WILL ENDORSE TO AM SHIFT NURSE TO ATTEMPT AGAIN LATER.
--- NOTE | 2019-09-16 06:55 | NUR ---
RN CLOSING NOTES: PATIENT IN BED, ASLEEP, BUT EASILY AROUSABLE. NO RESPIRATORY DISTRESS. NO C/O PAIN. SAFETY PRECAUTIONS HAVE BEEN IMPLEMENTED. SITTER STILL AT BEDSIDE. ALL NEEDS ATTENDED. ENDORSED TO AM SHIFT NURSE FOR CONTINUITY OF CARE. Addendum: 09/16/19 at 0658 by SAIMA ROMO RN ENDORSED TO AM SHIFT NURSE REGARDING SPUTUM COLLECTION.
--- NOTE | 2019-09-16 08:00 | NUR ---
ms rn note patient in bed awake trying to get out off bed , on 3l nc no sob noted at this time , rt upper arm picc line in place, all needs attended, fed by marketing automation manager [email or web address] plan of care discussed with patient , bed in lowest and locked position , will monitor
[2019-09-16 09:22] LABS: BASOPHILS % (AUTO) 0.2 % (0.0-2.0); HEMATOCRIT 22 % (33-45); HEMOGLOBIN 7.2 g/dL (11.5-14.8); LYMPHOCYTES # (AUTO) 1.3 /CMM (0.8-4.8); LYMPHOCYTES % (AUTO) 5.6 % (20.0-44.0); MEAN CORPUSCULAR HGB CONC 33 g/dl (31.0-36.0); MEAN CORPUSCULAR VOLUME 92 fL (82-100); MONOCYTES # (AUTO) 0.9 /CMM (0.1-1.30); MONOCYTES % (AUTO) 3.6 % (2.0-12.0); NEUTROPHILS # (AUTO) 21.9 /CMM (1.8-8.9); NEUTROPHILS % (AUTO) 90.6 % (43.0-81.0); PLATELET COUNT (AUTO) 259 /CMM (150-450); WHITE BLOOD COUNT (AUTO) 24.1 K/uL (4.3-11.0)
[2019-09-16 09:33] LABS: CALCIUM, SERUM 8.1 mg/dL (8.5-10.1); POTASSIUM 4.3 mmol/L (3.5-5.1)
[2019-09-16 09:37] LABS: CREATININE 9.8 mg/dL (0.6-1.3)
[2019-09-16 09:39] LABS: BILIRUBIN,TOTAL 0.3 mg/dL (0.2-1.0); CALCIUM, SERUM 7.9 mg/dL (8.5-10.1); MAGNESIUM 2.1 mg/dL (1.8-2.4); PHOSPHORUS 7.6 mg/dL (2.5-4.9); POTASSIUM 4.3 mmol/L (3.5-5.1); TOTAL PROTEIN, SERUM 5.3 g/dL (6.4-8.2)
[2019-09-16 09:46] LABS: ALBUMIN 1.2 g/dL (3.4-5.0); CREATININE 9.8 mg/dL (0.6-1.3)
[2019-09-16] MEDS: HYDROCORTISONE SOD SUCCINATE 100 MG/2 ML VIAL IV SCH ×2 (09:46→13:13)
[2019-09-16] MEDS: PANTOPRAZOLE 40 MG TABLET.DR PO SCH (09:47)
[2019-09-16] MEDS: CLOPIDOGREL BISULFATE 75 MG TABLET PO SCH (09:47)
[2019-09-16] MEDS: ASPIRIN 81 MG TAB.CHEW PO SCH (09:47)
[2019-09-16] MEDS: GABAPENTIN 100 MG CAPSULE PO SCH ×3 (09:47→16:43)
[2019-09-16] MEDS: LACTOBACILLUS RHAMNOSUS GG 1 EACH CAP.SPRINK PO SCH ×2 (09:47→16:43)
[2019-09-16] MEDS: NYSTATIN (PYXIS) 500,000 UNIT/5 ML ORAL.SUSP PO SCH ×3 (09:47→16:43)
[2019-09-16] MEDS: CARVEDILOL 12.5 MG TABLET PO SCH ×2 (09:48→21:00)
[2019-09-16] MEDS: NEPRO VAN 237 ML CAN PO SCH ×3 (09:50→16:40)
[2019-09-16] MEDS: SEVELAMER CARBONATE 0.8 GM POWD.PACK PO SCH ×3 (09:51→17:45)
[2019-09-16] MEDS: BLOOD SUGAR DIAGNOSTIC 1 EACH STRIP IN SCH ×4 (09:52→22:16)
[2019-09-16] MEDS: CADEXOMER IODINE 40 GM TUBE TP SCH (09:59)
[2019-09-16] MEDS: HYDROGEL DRESSING 90 GM TUBE TP SCH (09:59)
[2019-09-16] MEDS: HEPARIN SODIUM, PORCINE 5000 UNITS/1 ML VIAL SQ SCH ×2 (10:06→22:39)
--- NOTE | 2019-09-16 12:00 | NUR ---
ms rn note all needs attended, keep ,clean dry
--- NOTE | 2019-09-16 13:50 | NUR ---
ms rn note family at bedside refused to have lunch with chest congestion, called rt suction done . will monitor
[2019-09-16] MEDS: CEFEPIME 2 GM in IV D5W 100 ML IV SCH (15:11)
[2019-09-16] MEDS ORDERED: HYDROCORTISONE SOD SUCCINATE 100 MG/2 ML VIAL IV SCH (17:00)
[2019-09-16] MEDS ORDERED: CEFE2VIA IJ (17:29)
--- NOTE | 2019-09-16 17:30 | NUR ---
MS RN NOTE OFFERED TO EAT STILL ,REFUSED TO HAVE DINNER,CALLED TO [facility] FOR REPORT, RN STATED THAT AWAITING PATIENT TOMORROW, SPOKE WITH [employer] VICE PRESIDENT JEFERSON STATED THAT WILL F\U
[2019-09-16] MEDS: INSULIN REGULAR, HUMAN 100 UNIT/ML 3 ML VIAL SQ PRN ×2 (17:46→22:34)
--- NOTE | 2019-09-16 19:49 | NUR ---
MS RN NOTES RECEIVED PATIENT ASLEEP IN BED WITH NO DISTRESS NOTED. CALL LIGHT WITHIN REACH. SIRIA PICC LINE INTACT AND PATENT. HD CATH INTACT WITH NO REDNESS OR SWELLING NOTED. BLAYNE AV SHUNT INTACT WITH NO REDNESS OR SWELLING AND WITH (+) BRUIT AND THRILL. BED IN LOW LOCK SETTING. ROOM FREE OF CLUTTER AND BELONGINGS KEPT NEAR BEDSIDE. WILL CONTINUE TO MONITOR.
[2019-09-16 20:00] VITALS: BP 104/54
[2019-09-17] MEDS: ALBUTEROL HALF STRENGTH 1.25 MG/3 ML VIAL.NEB NEB SCH ×3 (00:17→08:03)
[2019-09-17 04:00] VITALS: BP 114/64
--- NOTE | 2019-09-17 04:00 | NUR ---
CALL PLACED TO [facility] AT NUMBER PROVIDED BY CM, NO ANSWER OR OPTION TO LEAVE VOICEMAIL. WILL CALL BACK
--- NOTE | 2019-09-17 05:51 | NUR ---
CALL PALCED TO [facility], PLACED ON 15MIN HOLD AND LINE WAS DISCONNECTED. WILL CALL BACK
--- NOTE | 2019-09-17 06:25 | NUR ---
CALL PLACED TO [facility] AGAIN AT [phone] AND PLACED ON ANOTHER LONG HOLD. ANOTHER CALL PLACED AND LINE WAS PICKED UP AND DISCONNECTED. WILL CONTINUE TO ATTEMPT TO GIVE REPORT.
--- NOTE | 2019-09-17 06:30 | NUR ---
MS RN NOTES PATIENT ASLEEP IN BED WITH NO DISTRESS NOTED. CALL LIGHT WITHIN REACH. SIRIA PICC LINE INTACT AND PATENT. HD INTACT. BLAYNE AV SHUNT INTACT WITH (+) BRUIT AND THRILL. ALL DUE MEDS GIVEN ORDERED WITH NO ASE NOTED. WOUND TX RENDERED WITH WEEKLY PICTURES OBTAINED AND TOLERATED WELL. BED IN LOW LOCK SETTING WITH BED ALARM ON AND FUNCTIONING PROPERLY. ALL BELONGINGS KEPT NEAR BEDSIDE. WILL ENDORSE TO ONCOMING SHIFT.
[2019-09-17 06:58] LABS: BASOPHILS # (AUTO) 0.1 /CMM (0.0-0.2); BASOPHILS % (AUTO) 0.3 % (0.0-2.0); EOSINOPHILS % (AUTO) 0.1 % (0.0-6.0); HEMATOCRIT 22 % (33-45); HEMOGLOBIN 7.1 g/dL (11.5-14.8); LYMPHOCYTES # (AUTO) 1.7 /CMM (0.8-4.8); MEAN CORPUSCULAR HGB CONC 33 g/dl (31.0-36.0); MEAN CORPUSCULAR VOLUME 93 fL (82-100); MONOCYTES # (AUTO) 0.6 /CMM (0.1-1.30); MONOCYTES % (AUTO) 2.7 % (2.0-12.0); NEUTROPHILS # (AUTO) 18.9 /CMM (1.8-8.9); NEUTROPHILS % (AUTO) 88.9 % (43.0-81.0); PLATELET COUNT (AUTO) 251 /CMM (150-450); RED BLOOD CELL COUNT(AUTO) 2.34 MIL/uL (4.0-5.2); WHITE BLOOD COUNT (AUTO) 21.2 K/uL (4.3-11.0)
[2019-09-17] MEDS: BLOOD SUGAR DIAGNOSTIC 1 EACH STRIP IN SCH (07:06)
--- NOTE | 2019-09-17 07:15 | NUR ---
MS RN OPENING NOTE RECEIVED REPORT FROM [facility] SHIFT NURSE. PT ASLEEP IN BED, ON 02 VIA NC 3L/MIN, SATURATING WELL, RESPIRATIONS EVEN AND UNLABORED, NO SIGNS OF RESPIRATORY DISTRESS NOTED. RIGHT UPPER ARM PICC LINE IN PLACE, SECURED WITH CLEAN DRESSING, FLUSHING WELL. BED IN LOW POSITION, LOCKED, CALL LIGHT WITHIN REACH.
[2019-09-17] MEDS: PANTOPRAZOLE 40 MG TABLET.DR PO SCH (07:21)
[2019-09-17 08:00] VITALS: BP 146/47
[2019-09-17] MEDS: NEPRO VAN 237 ML CAN PO SCH (08:00)
--- NOTE | 2019-09-17 08:03 | NUR ---
CALLED [facility]- GAVE REPORT TO TIMA WASSERMAN. PER TIMA THE ROOM IS NOT AVAILABLE YET AND IS REQUESTING PULLBOAT ENGINEER TIME TO BE POSTPONED TO 9AM. CALLED [facility] [employer]OP[employer], NOT AVAILABLE. WILL CALL BACK.
[2019-09-17] MEDS: CLOPIDOGREL BISULFATE 75 MG TABLET PO SCH (08:33)
[2019-09-17] MEDS: NYSTATIN (PYXIS) 500,000 UNIT/5 ML ORAL.SUSP PO SCH (08:33)
[2019-09-17] MEDS: LACTOBACILLUS RHAMNOSUS GG 1 EACH CAP.SPRINK PO SCH (08:33)
[2019-09-17 08:34] VITALS: BP 146/47
[2019-09-17] MEDS: CARVEDILOL 12.5 MG TABLET PO SCH (08:34)
[2019-09-17] MEDS: GABAPENTIN 100 MG CAPSULE PO SCH (08:34)
[2019-09-17] MEDS: ASPIRIN 81 MG TAB.CHEW PO SCH (08:34)
[2019-09-17] MEDS: HEPARIN SODIUM, PORCINE 5000 UNITS/1 ML VIAL SQ SCH (08:35)
--- NOTE | 2019-09-17 08:49 | NUR ---
GAVE REPORT TO SON FROM [facility].
--- NOTE | 2019-09-17 08:58 | NUR ---
PT LEFT VIA GURNEY WITH AMBULANZ IN STABLE CONDITION TO DERBY. ALL DISCHARGE PAPERWORK GIVEN TO EMT.
[2019-09-17] MEDS: SEVELAMER CARBONATE 0.8 GM POWD.PACK PO SCH (09:00)
[2019-09-17] MEDS: HYDROGEL DRESSING 90 GM TUBE TP SCH (09:00)
[2019-09-17] MEDS: CADEXOMER IODINE 40 GM TUBE TP SCH (09:00)
== END 2019-09-17 08:55 | DRG 853 ==
LOC: ER 18:18 → MEDSG1 20:43 → TELE1 08-31 06:13 → ICU 09-11 09:24 → TELE1 09-13 13:15 → MEDSG1 09-14 07:32 → TELE1 09-15 09:26 → MEDSG1 09-15 09:29
PROVIDERS: ADMIT Nurse Practitioner Acute Care; ATTEND Hospitalist
PROC: 0JB70ZZ Excision of Back Subcutaneous Tissue and Fascia, Open Approach (ICD-10-PCS; 2019-08-22)
PROC: 0JB90ZZ Excision of Buttock Subcutaneous Tissue and Fascia, Open Approach (ICD-10-PCS; 2019-08-22)
PROC: 5A1D70Z Performance of Urinary Filtration, Intermittent, Less than 6 Hours Per Day (ICD-10-PCS; 2019-08-22)
PROC: 05H933Z Insertion of Infusion Device into Right Brachial Vein, Percutaneous Approach (ICD-10-PCS; 2019-08-23)
PROC: 0JB70ZZ Excision of Back Subcutaneous Tissue and Fascia, Open Approach (ICD-10-PCS; 2019-08-28)
PROC: 0JB90ZZ Excision of Buttock Subcutaneous Tissue and Fascia, Open Approach (ICD-10-PCS; 2019-08-28)
PROC: 0JB70ZZ Excision of Back Subcutaneous Tissue and Fascia, Open Approach (ICD-10-PCS; 2019-09-05)
PROC: 0JB90ZZ Excision of Buttock Subcutaneous Tissue and Fascia, Open Approach (ICD-10-PCS; 2019-09-05)
PROC: 5A1945Z Respiratory Ventilation, 24-96 Consecutive Hours (ICD-10-PCS; principal; 2019-09-11)
PROC: 0BH17EZ Insertion of Endotracheal Airway into Trachea, Via Natural or Artificial Opening (ICD-10-PCS; 2019-09-11)
PROC: 02HV33Z Insertion of Infusion Device into Superior Vena Cava, Percutaneous Approach (ICD-10-PCS; 2019-09-11)
PROC: 5A2204Z Restoration of Cardiac Rhythm, Single (ICD-10-PCS; 2019-09-11)
DX: A41.9 Sepsis, unspecified organism (principal); L89.153 Pressure ulcer of sacral region, stage 3; L89.323 Pressure ulcer of left buttock, stage 3; L89.313 Pressure ulcer of right buttock, stage 3; N18.6 End stage renal disease; E43 Unspecified severe protein-calorie malnutrition; J96.01 Acute respiratory failure with hypoxia; I21.A1 Myocardial infarction type 2; I46.9 Cardiac arrest, cause unspecified; J69.0 Pneumonitis due to inhalation of food and vomit; E11.52 Type 2 diabetes mellitus with diabetic peripheral angiopathy with gangrene; I13.11 Hypertensive heart and chronic kidney disease without heart failure, with stage 5 chronic kidney disease, or end stage renal disease; D68.59 Other primary thrombophilia; B37.0 Candidal stomatitis; E87.2 Acidosis; E87.1 Hypo-osmolality and hyponatremia; L03.90 Cellulitis, unspecified; I13.2 Hypertensive heart and chronic kidney disease with heart failure and with stage 5 chronic kidney disease, or end stage renal disease; G93.1 Anoxic brain damage, not elsewhere classified; I69.354 Hemiplegia and hemiparesis following cerebral infarction affecting left non-dominant side; E11.22 Type 2 diabetes mellitus with diabetic chronic kidney disease; I25.2 Old myocardial infarction; I25.10 Atherosclerotic heart disease of native coronary artery without angina pectoris; E11.621 Type 2 diabetes mellitus with foot ulcer; D64.9 Anemia, unspecified; E11.649 Type 2 diabetes mellitus with hypoglycemia without coma; F17.200 Nicotine dependence, unspecified, uncomplicated; E83.41 Hypermagnesemia; Z99.2 Dependence on renal dialysis; Z91.19 Patient's noncompliance with other medical treatment and regimen; Z91.15 Patient's noncompliance with renal dialysis; Z91.14 Patient's other noncompliance with medication regimen; Z79.4 Long term (current) use of insulin; Z79.82 Long term (current) use of aspirin; Z79.02 Long term (current) use of antithrombotics/antiplatelets; Y95 Nosocomial condition; M19.90 Unspecified osteoarthritis, unspecified site; Z88.5 Allergy status to narcotic agent; Z88.2 Allergy status to sulfonamides; F03.90 Unspecified dementia, unspecified severity, without behavioral disturbance, psychotic disturbance, mood disturbance, and anxiety; E87.6 Hypokalemia; F41.9 Anxiety disorder, unspecified; G89.4 Chronic pain syndrome; I50.9 Heart failure, unspecified; T38.0X5A Adverse effect of glucocorticoids and synthetic analogues, initial encounter; Y92.9 Unspecified place or not applicable; E83.39 Other disorders of phosphorus metabolism; Z74.09 Other reduced mobility; L97.529 Non-pressure chronic ulcer of other part of left foot with unspecified severity; I70.0 Atherosclerosis of aorta; B37.9 Candidiasis, unspecified; M79.2 Neuralgia and neuritis, unspecified
CPT/HCPCS: 31720; 36415; 36600; 71045-TC; 73130-TC; 73630-TC; 75574; 80048-TC; 80053-TC; 80061-TC; 80074; 80076-TC; 80202-TC; 82040-TC; 82248-TC; 82533; 82803-TC; 82945-TC; 82962-TC; 83605-TC; 83735-TC; 84100-TC; 84443-TC; 84484-TC; 85025-TC; 85730-TC; 86580-TC; 86704; 86706; 87040-TC; 87070-TC; 87081-TC; 87186-TC; 87340; 89051-TC; 90935-TC; 92611-TC; 92950-TC; 93307-TC; 94002-TC; 94003-TC; 94761-TC; 94799-TC; 97535-TC; 99082-TC; A4216; A6248; A6253; A6403; A6407; C1751; G0378; J0171; J0282; J0692; J1170; J1644; J1720; J1815; J1940; J2185; J2370; J2405; J2543; J3370; J3480; J3490; J7030; J7040; J7042; J7050; J7060; J7070; Q9967